=== PATIENT | male | born 1945 | race Caucasian/White ===

== ENCOUNTER 2019-08-20 09:39 | Outpatient (CLI) | payer MEDICARE, BC ==
--- NOTE | 2019-08-20 10:32 | RAD ---
FRONTAL CHEST ONE VIEW FOR MRI SAFETY: 08/20/2019 PROVIDED CLINICAL HISTORY: History of unknown chest surgery. FINDINGS: Median sternotomy changes are seen. There is no evidence of a radiographically apparent cardiac valve . Heart and mediastinal contents appear normal. No focal consolidation, pleural fluid or pneumothorax apparent. IMPRESSION: No contraindication to MRI is radiographically apparent. POS: OFF
--- NOTE | 2019-08-20 11:15 | MRI ---
MRI LUMBAR SPINE NONCONTRAST:. HISTORY: Intervertebral lumbar disc disorder. Low back pain with radiation to the left hip, down to left foot. Associated muscle spasm. COMPARISON: None FINDINGS: Appropriate T1 marrow signal intensity of the lumbar vertebra. Lumbar spine vertebral body height is maintained. No fracture. No significant STIR hyperintensity to suggest vertebral body edema or ligamentous injury. Straightening of normal lumbar lordosis may be positional. Appropriate signal intensity visualized paraspinal muscles 0.8 cm left renal cyst. Conus medullaris terminates at the mid T12 level. T12-L1:Desiccation with mild loss of disc space height. No significant central canal stenosis or sign ificant neural foraminal narrowing. L1-L2:Desiccation without significant loss of disc space height. Minimal right paracentral disc bulge . No significant central canal stenosis or significant neural foraminal narrowing. L2-L3:Desiccation with mild loss of disc space height. Broad-based disc bulge with a small midline an nular fissure. No significant central canal stenosis. Neural foramina are patent. L3-L4:Desiccation without significant loss of disc space height. No significant central canal stenosi s or significant neural foraminal narrowing. L4-L5:Desiccation without significant loss of disc space height. Broad-based disc bulge, ligament fla vum thickening and facet hypertrophy result in moderate central canal stenosis. Moderate bilateral neural foraminal narrowing. L5-S1:Desiccation without significant loss of disc space height. There is no significant posterior di sc abnormality. Narrowing of the thecal sac due to epidural lipomatosis. There is fluid in the right facet joint. Left facet joint is unremarkable. Bilateral facet hypertrophy. There is moderate t o severe right and left neural foraminal narrowing. IMPRESSION: Degenerative changes of lumbar spine as above. Transcribed Date/Time: 08/20/2019 11:20 AM
== END 2019-08-20 09:40 | disposition home or self-care (01) ==
LOC: BICMRI 09:39
PROVIDERS: ATTEND Physician Assistant
DX: M51.06 Intervertebral disc disorders with myelopathy, lumbar region (principal); M47.16 Other spondylosis with myelopathy, lumbar region
CPT/HCPCS: 71045; 72148

== ENCOUNTER 2020-01-06 12:02 | Inpatient (IN) | payer MEDICARE, BC ==
[2020-01-06 15:21] VITALS: BMI 36.3
[2020-01-06] MEDS ORDERED: Dextrose 5% in Water 1,000 ML IV PRN (15:41)
[2020-01-06] MEDS ORDERED: Dextrose 50% Abboject 50 ML SYRINGE SLOW IVP PRN (15:41)
--- NOTE | 2020-01-06 15:54 | HP ---
CHIEF COMPLAINT: Lower extremity weakness. HISTORY OF PRESENT ILLNESS: The patient is a 74-year-old male with past medical history of coronary artery disease, status post CABG, hypertension, and diabetes mellitus, who was in his usual state of health until 3 weeks ago when he had an episode of diarrhea that lasted about a week. The episode subsided spontaneously. On the following week, the patient has been experiencing progressive weakness in his lower extremities that caused him to fall multiple times. His weakness was getting worse, which prompted him to go to the emergency department in [facility]. The patient mentioned that he received an x-ray to his thoracic spine and was sent to the rehab when the results were normal. In the rehab, the patient's weakness worsened to the extent that he was not able to move his lower extremities anymore and the weakness progressed to his upper extremities, which he is able to move now but much weaker than his usual self. The patient also endorsed feeling differently, but he denied tingling or numbness. An MRI of his cervical spine and lumbar spine were performed and the results did not show any spinal cord abnormalities, but did show degenerative spine changes. The patient was given a trial of corticosteroids without significant improvement in his symptoms and was subsequently sent to our hospital for further evaluation. The patient at this time is able to lift his both upper extremities above his head with difficulty and he is able to speak and move his eyes without abnormalities. He reports some weakness in his neck muscles and is unable to move his lower extremities at all. He denies any urinary or fecal incontinence. REVIEW OF SYSTEMS: Negative except as noted in HPI. PAST MEDICAL HISTORY: Hypertension, diabetes mellitus, coronary artery disease. PAST SURGICAL HISTORY: Left knee replacement and CABG. PHYSICAL EXAMINATION: GENERAL: The patient is alert and oriented. HEENT: Head is normocephalic and atraumatic. Extraocular muscles are intact. NECK: Supple. CHEST: Auscultation is clear bilaterally. CARDIAC: Revealed normal S1 and S2. No murmurs, rubs, or gallops. ABDOMEN: Soft, nontender, nondistended. Bowel sounds are audible. NEUROLOGIC: Revealed 1/5 weakness in his lower extremities bilaterally and 3/5 weakness in his upper extremities bilaterally. His sensation appears to be present, but altered. ASSESSMENT AND PLAN: 1. Progressive ascending weakness with negative MRI of the cervical and lumbar spine for spinal cord abnormalities. 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 We will admit the patient to the telemetry unit and obtain a lumbar puncture to look at the proteins and the cells. We will check vital capacity every 6 hours and transfer the patient to the intensive care unit if the numbers deteriorate. The patient might require IVIG if the diagnosis is confirmed. 2. Hypertension. 3. Coronary artery disease. 4. Diabetes mellitus. Job ID: [id number]
--- NOTE | 2020-01-06 17:01 | CON ---
DATE OF CONSULTATION: 01/06/2020 CONSULTING PHYSICIAN: Hospitalist Service. 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 PLAN: 1. Start IVIG 1 g/kg daily for 2 days. 2. Monitor negative inspiratory flow. 3. DVT prophylaxis. 4. Lumbar puncture for routine cell count, glucose, protein, and IgG synthesis rate. HISTORY OF PRESENT ILLNESS: Mr. Salazar is a 74-year-old gentleman who reports he had a diarrheal illness about 3 weeks ago. Following this, he started to notice some progressive weakness. He started falling and having more trouble getting up. He noticed that he was losing feeling in his toes. There is no loss of bowel or bladder control. He has not noticed any facial weakness, difficulty swallowing, double vision, headache, dizziness, blurred vision, or cognitive impairment. He had noted some tingling around his face at one point. He had an MRI of the cervical and lumbar spine done, nothing remarkable was found. The patient came in today because he had gotten so weak that he was not able to get around independently. He has been admitted for further treatment. PAST MEDICAL HISTORY: Hypertension, diabetes, coronary artery disease, cardiac valve replacement. ALLERGIES: NONE. SOCIAL HISTORY: No tobacco or illicit drug use. FAMILY HISTORY: Noncontributory. REVIEW OF SYSTEMS: 10-system review of systems is otherwise negative. PHYSICAL EXAMINATION: GENERAL: He is a somewhat overweight elderly man, lying in bed, in no acute distress. VITAL SIGNS: Stable. HEENT: Pupils are equal and reactive. Conjunctivae clear. Oropharynx clear. NECK: Supple. No lymphadenopathy. EXTREMITIES: No cyanosis or edema. NEUROLOGIC: He was alert and cooperative. Speech is fluent and clear. Cranial nerve exam seem to be intact other than some questionable lower facial weakness to maintain air in his mouth. He had a slight bit of neck flexion weakness noted. Motor exam in the extremities was remarkable for at best 3/5 strength both proximally and distally in all 4 extremities. Sensation was diminished to proprioception in the toes, but still intact to touch. Gait was not tested. No abnormal movements were seen. I could not elicit any reflexes. 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 I would go ahead and start treatment immediately. His situation is a bit tenuous. I would monitor his respiratory status closely and consider if it is necessary to move into the ICU if it deteriorates. Job ID: [id number]
[2020-01-06] MEDS: HumaLOG 300 UNITS/3 ML VIAL SC PRN ×2 (17:42→22:40)
[2020-01-06] MEDS: OCTAGAM IVPB SCH (17:46)
[2020-01-06] MEDS: Enoxaparin Sodium 40 MG/0.4 ML SYRINGE SC SCH (20:58)
[2020-01-06] MEDS: Pregabalin 75 MG CAP PO SCH (20:59)
[2020-01-06] MEDS ORDERED: Furosemide 40 MG TAB PO SCH (21:00)
[2020-01-06] MEDS: Rosuvastatin 20 MG TAB PO SCH (21:03)
[2020-01-06] MEDS: Acetaminophen 325 MG TAB PO PRN (22:41)
[2020-01-06] MEDS: Melatonin 3 MG TAB PO PRN (22:41)
[2020-01-07] MEDS: Acetaminophen 325 MG TAB PO PRN ×4 (03:41→23:23)
[2020-01-07 04:28] LABS: INR-International Normal Ratio 1.1; Prothrombin Time 13.9 SEC (12.0-14.7)
[2020-01-07 04:52] LABS: Anion Gap 14 mmol/L (10-20); BUN (Urea Nitrogen) 51 mg/dL (8.4-25.7); Calc. Creatinine Clearance 99 mL/min (70-130); Calcium 8.4 mg/dL (7.8-10.44); Carbon Dioxide 22 mmol/L (23-31); Chloride 96 mmol/L (98-107); Estimated GFR-MDRD 65; Glucose 287 mg/dL (83-110); Potassium 5.5 mmol/L (3.5-5.1); Sodium 126 mmol/L (136-145)
[2020-01-07 05:39] LABS: Hemoglobin 14.6 g/dL (14.0-18.0); Lymphocytes 5 % (21-51); MDiff Complete? YES; Mean Corpuscular HGB CONC 34.1 g/dL (32.0-36.0); Mean Corpuscular Hemoglobin 30.1 pg (27.0-31.0); Mean Corpuscular Volume 88.2 fL (78.0-98.0); Monocytes 16 % (0-10); Neutrophil 79 % (42-75); Platelet Count 143 thou/uL (130-400); Platelet Morphology Comment Appears Adequate; RBC Morphology Normal; Red Blood Cell (RBC) Count 4.87 mill/uL (4.70-6.10)
[2020-01-07] MEDS: HumaLOG 300 UNITS/3 ML VIAL SC PRN ×3 (06:07→21:38)
[2020-01-07] MEDS ORDERED: Enoxaparin Sodium 40 MG/0.4 ML SYRINGE SC SCH (09:00)
[2020-01-07] MEDS ORDERED: Lisinopril 10 MG TAB PO SCH (09:00)
[2020-01-07] MEDS: Aspirin 325 MG TAB PO SCH (09:12)
[2020-01-07] MEDS: Pregabalin 75 MG CAP PO SCH ×2 (09:13→21:36)
--- NOTE | 2020-01-07 09:14 | PDOC.HOSPP ---
- Subjective Encounter Date: 01/07/20 Subjective: The patient stated that he is able to move his arms better today. - Objective Vital Signs & Weight: Vital Signs (12 hours) Temp Pulse Resp BP BP Pulse Ox 01/07/20 07:01 97.6 F 58 L 20 143/84 H 97 01/07/20 03:41 97.5 F L 57 L 17 146/80 H 94 L 01/06/20 23:49 97.9 F 61 18 159/89 H 96 Weight Weight 261 lb I&O: 01/06/20 01/07/20 01/08/20 06:59 06:59 06:59 Intake Total 850 Output Total 2600 Balance -1750 Result Diagrams: 01/07/20 04:13 01/07/20 04:13 Additional Labs: Accuchecks 01/07/20 01/06/20 01/06/20 05:44 19:22 16:58 POC Glucose 275 H 230 H 200 H Hospitalist ROS - Medication Medications: Active Medications Generic Name Dose Route Start Last Admin Trade Name Freq PRN Reason Stop Dose Admin Acetaminophen 650 mg 01/06/20 21:53 01/07/20 03:41 Tylenol PO 650 mg Q4H PRN Administration Headache/Fever/Pain 1-3 Enoxaparin Sodium 40 mg 01/06/20 21:00 01/06/20 20:58 Lovenox SC 40 mg Q12HR WARREN Administration Immune Globulin 90 gm/ Immune 950 mls @ 0 mls/hr 01/06/20 18:00 01/06/20 17: 46 Globulin 5 gm/ Device IVPB 01/07/20 18:01 950 mls Q24HR WARREN Administration As Directed Insulin Human Lispro 0 units 01/06/20 15:41 01/07/20 06:07 Humalog SC 4 unit .MILD SLIDING SCALE PRN Administration Mild Correctional Scale Insulin Human Lispro 0 units 01/06/20 22:05 01/06/20 22:40 Humalog SC 2 unit .BEDTIME SLIDING SC PRN Administration Bedtime Correctional Scale Melatonin 3 mg 01/06/20 21:53 01/06/20 22:41 Melatonin PO 3 mg HS PRN Administration Insomnia Metoprolol Succinate 50 mg 01/06/20 21:00 01/06/20 20:58 Toprol Xl PO 50 mg BID WARREN Administration Pantoprazole Sodium 40 mg 01/07/20 07:00 01/07/20 06:07 Protonix PO 40 mg 0700 WARREN Administration Pregabalin 75 mg 01/06/20 21:00 01/06/20 20:59 Lyrica PO 75 mg BID WARREN Administration Rosuvastatin Calcium 40 mg 01/06/20 21:00 01/06/20 21:03 Crestor PO 40 mg HS WARREN Administration - Exam General Appearance: awake alert ENT: normocephalic atraumatic, no oropharyngeal lesions Neck: supple, no JVD Heart: RRR, no murmur, no gallops, no rubs, normal peripheral pulses Respiratory: CTAB, no wheezes, no rales, no ronchi, normal chest expansion Gastrointestinal: soft, non-tender, non-distended, normal bowel sounds, no palpable masses Neurological: cranial nerve grossly intact Neurological - other findings: LE 1/5 weakness and sensory deficit Hosp A/P (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 LP today. IVIG per neurology. Outpatient steriods DCed. FVC and MIP q6h. Move to CCU if FVC<20 or MIP<30. Hyponatremia liley due to volume depletion. Hold lasix. NS at 50 ml/hr. DC Lisinopril due to hyperkalemia. Start Imdur and Hydralazine for HTN. Lantus 10 u q am for uncontrolled DM. Lovenox for DVT ppx.
[2020-01-07] MEDS: Sodium Chloride 0.9% 1,000 ML IV SCH (09:15)
[2020-01-07] MEDS: Enoxaparin Sodium 40 MG/0.4 ML SYRINGE SC SCH ×2 (09:15→21:35)
--- NOTE | 2020-01-07 11:16 | RAD ---
Fluoroscopic guided lumbar puncture HISTORY: Leg weakness. Guillain-[place] syndrome. FINDINGS: After explaining the procedure and answering all questions, the lower back was prepped and draped in usual sterile fashion. Sterile technique, buffered local anesthesia, fluoroscopic guidance, and a posterior L2-3 approach were used to carefully advance a 20-gauge spinal needle into the thecal sac. A total volume of 8 cc clear CSF was collected in 4 sterile tubes and sent to pathology for evaluatio n. Needle was removed. Patient tolerated the procedure well and was returned in unchanged condition. Fluoroscopy time 0.2 minutes. IMPRESSION : Technically successful lumbar puncture. Pathology is pending.
[2020-01-07 12:21] LABS: CSF, Glucose 163 mg/dl (40-70); CSF, Protein 123 mg/dL (15-40)
[2020-01-07 12:31] LABS: Color Of CSF Supernatant COLORLESS (Colorless); Tube # 1; Unspun CSF Color COLORLESS (Colorless)
[2020-01-07 13:37] LABS: CSF Source CSF; Clarity Clear (Clear); RBC Count - Manual 1 /cumm (None Seen); Tube # 4
[2020-01-07 13:44] LABS: WBC/NonHematics Count - Manual 7 /cumm (0-5)
[2020-01-07] MEDS: hydrALAZINE 25 MG TAB PO SCH ×2 (14:06→21:35)
[2020-01-07] MEDS: Insulin Glargine 10 UNITS in Pre-Filled Syringe 1 EACH SC SCH (14:12)
[2020-01-07 14:56] LABS: Ref Lab Test Ordered IGG SYNTHESIS CSF; Reference Lab Name LABCORP
[2020-01-07] MEDS: OCTAGAM IVPB SCH (17:46)
[2020-01-07] MEDS: Rosuvastatin 20 MG TAB PO SCH (21:38)
[2020-01-07] MEDS: Melatonin 3 MG TAB PO PRN (23:23)
[2020-01-08 04:59] LABS: #Basophils 0.2 thou/uL (0.0-0.2); #Lymphocytes 1.2 thou/uL (1.20-3.40); #Monocytes 0.8 thou/uL (0.11-0.59); #Neutrophils 4.5 thou/uL (1.40-6.50); %Basophils 2.3 % (0.0-1.0); %Eosinophils 0.7 % (0.0-10.0); %Lymphocytes 17.6 % (21.0-51.0); %Monocytes 12.1 % (0.0-10.0); %Neutrophils 67.3 % (42.0-75.0); Hemoglobin 15.5 g/dL (14.0-18.0); Mean Corpuscular HGB CONC 34.8 g/dL (32.0-36.0); Mean Corpuscular Hemoglobin 30.7 pg (27.0-31.0); Mean Corpuscular Volume 88.3 fL (78.0-98.0); Mean Platelet Volume 7.1 fL (7.4-10.4); Platelet Count 133 thou/uL (130-400); Red Blood Cell (RBC) Count 5.04 mill/uL (4.70-6.10); White Blood Cell (WBC) Count 6.7 thou/uL (4.8-10.8)
[2020-01-08] MEDS ORDERED: Ondansetron PF 4 MG/2 ML Vial SLOW IVP PRN (05:17)
[2020-01-08 05:21] LABS: Anion Gap 11 mmol/L (10-20); BUN (Urea Nitrogen) 33 mg/dL (8.4-25.7); Calc. Creatinine Clearance 132 mL/min (70-130); Calcium 8.6 mg/dL (7.8-10.44); Carbon Dioxide 22 mmol/L (23-31); Chloride 99 mmol/L (98-107); Estimated GFR-MDRD Greater than 90; Glucose 178 mg/dL (83-110); Potassium 4.7 mmol/L (3.5-5.1); Sodium 127 mmol/L (136-145)
[2020-01-08] MEDS: HumaLOG 300 UNITS/3 ML VIAL SC PRN ×2 (06:13→12:10)
[2020-01-08] MEDS: Acetaminophen 325 MG TAB PO PRN ×2 (06:14→12:04)
[2020-01-08] MEDS ORDERED: Isosorbide Mononitrate (ER) 30 MG TAB PO SCH (09:00)
[2020-01-08] MEDS: Sodium Chloride 0.9% 1,000 ML IV SCH (09:23)
[2020-01-08] MEDS: hydrALAZINE 25 MG TAB PO SCH (09:25)
[2020-01-08] MEDS: Insulin Glargine 10 UNITS in Pre-Filled Syringe 1 EACH SC SCH (09:25)
[2020-01-08] MEDS: Aspirin 325 MG TAB PO SCH (09:25)
[2020-01-08] MEDS: Enoxaparin Sodium 40 MG/0.4 ML SYRINGE SC SCH (09:25)
[2020-01-08] MEDS: Pregabalin 75 MG CAP PO SCH (09:26)
--- NOTE | 2020-01-08 11:57 | PRG ---
DATE OF SERVICE: 01/08/2020 Mr. Salazar has been stable since overnight, he has not run any fever. He is complaining of some pain in his tailbone from sitting so much. He has completed his IVIG therapy. His spinal fluid was consistent with a cellular high-protein pattern of Guillain-[place] syndrome. His negative inspiratory flows have remained normal at 60. He was found to be diabetic. He is now undergoing treatment for this. He has been assessed by physical therapy. He is receiving DVT prophylaxis. We will screen him for rehab and see about a transfer at their discretion. Job ID: [id number]
[2020-01-08 12:11] VITALS: BP 108/64; TEMP 98
--- NOTE | 2020-01-09 06:01 | DIS ---
DATE OF ADMISSION: 01/06/2020 DATE OF DISCHARGE: 01/08/2020 DISCHARGE DIAGNOSES: 1. Guillain-[place] syndrome. 2. Hypertension. 3. Coronary artery disease. 4. Diabetes. DISCHARGE MEDICATIONS: 1. Aspirin 325 mg orally daily. 2. Metoprolol succinate 50 mg orally twice daily. 3. Omeprazole 20 mg orally daily. 4. Pregabalin 75 mg orally daily. 5. Rosuvastatin 40 mg orally daily. 6. Furosemide 40 mg orally twice daily. 7. Lisinopril 10 mg orally daily. 8. Claritin 10 mg orally daily. 9. Metformin 2 tablets of 500 mg twice daily. 10. Potassium chloride 20 mEq orally daily. 11. Avoid corticosteroids. HISTORY OF PRESENT ILLNESS AND HOSPITAL COURSE: The patient is a 74-year-old male with past medical history of hypertension, diabetes mellitus and coronary artery disease, who was transferred to our hospital from rehab facility due to ascending type of paralysis. His presentation was also associated with some sensory deficits. MRI of his cervical and lumbar spine obtained prior to admission, did not show any spinal cord abnormalities, but did show some degenerative changes of the spine. Guillain-Ward was suspected based on his presentation, especially his weakness was preceded by one week of diarrhea. Neurology was consulted and the patient was started on IVIG. Lumbar puncture was done, which showed normal cells and increased protein level typical for Guillain-Ward syndrome. The patient received two full days of IVIG and completed his treatment per Neurology. He was monitored for deterioration of his respiratory status, which did not happen and his maximum inspiratory pressure remained within normal limits. The patient's recovery will take several weeks. He is cleared to go to the rehab from Neurology standpoint. Job ID: [id number]
== END 2020-01-08 14:33 | DRG 94 ==
LOC: SURG A 13:28 → OBSVTOIN 13:28 → 2SE 16:41
PROVIDERS: ADMIT Internal Medicine; ATTEND Internal Medicine
PROC: 009U3ZX Drainage of Spinal Canal, Percutaneous Approach, Diagnostic (ICD-10-PCS; principal; 2020-01-07)
PROC: B01BZZZ Fluoroscopy of Spinal Cord (ICD-10-PCS; 2020-01-07)
DX: G61.0 Guillain-Barre syndrome (principal); G82.50 Quadriplegia, unspecified; E87.1 Hypo-osmolality and hyponatremia; I10 Essential (primary) hypertension; E11.9 Type 2 diabetes mellitus without complications; I25.10 Atherosclerotic heart disease of native coronary artery without angina pectoris; Z96.652 Presence of left artificial knee joint; E86.9 Volume depletion, unspecified; E87.5 Hyperkalemia; Z95.1 Presence of aortocoronary bypass graft
CPT/HCPCS: 36415; 36416; 62270; 80048; 82945; 84157; 85025; 85610; 89051; 94150; J1568; J1650; J1815; J2405

== ENCOUNTER 2020-01-18 21:07 | Observation (INO) | payer MEDICARE, BC ==
[2020-01-18 21:46] LABS: #Eosinphils 0.1 thou/uL (0.0-0.7); #Lymphocytes 1.4 thou/uL (1.20-3.40); #Monocytes 0.5 thou/uL (0.11-0.59); #Neutrophils 8.5 thou/uL (1.40-6.50); %Basophils 0.3 % (0.0-1.0); %Eosinophils 1.3 % (0.0-10.0); %Monocytes 4.8 % (0.0-10.0); %Neutrophils 80.7 % (42.0-75.0); Hemoglobin 14.6 g/dL (14.0-18.0); Mean Corpuscular HGB CONC 35.1 g/dL (32.0-36.0); Mean Corpuscular Hemoglobin 30.9 pg (27.0-31.0); Mean Corpuscular Volume 88.3 fL (78.0-98.0); Mean Platelet Volume 7.2 fL (7.4-10.4); Platelet Count 192 thou/uL (130-400); RBC Distribution Width 12.5 % (11.5-14.5); Red Blood Cell (RBC) Count 4.71 mill/uL (4.70-6.10); White Blood Cell (WBC) Count 10.6 thou/uL (4.8-10.8)
[2020-01-18 22:06] LABS: ALT (SGPT) 42 U/L (8-55); AST (SGOT) 28 U/L (5-34); Albumin 3.4 g/dL (3.4-4.8); Alkaline Phosphatase 92 U/L (40-110); Anion Gap 17 mmol/L (10-20); BUN (Urea Nitrogen) 18 mg/dL (8.4-25.7); Bilirubin, Total 1.2 mg/dL (0.2-1.2); Calc. Creatinine Clearance 0 mL/min (70-130); Calcium 9.3 mg/dL (7.8-10.44); Carbon Dioxide 19 mmol/L (23-31); Chloride 98 mmol/L (98-107); Estimated GFR-MDRD Greater than 90; Globulin 4.1 g/dL (2.4-3.5); Glucose 113 mg/dL (83-110); Potassium 4.5 mmol/L (3.5-5.1); Protein, Total 7.5 g/dL (5.8-8.1); Sodium 129 mmol/L (136-145)
--- NOTE | 2020-01-18 22:37 | RAD ---
CHEST ONE VIEW: History: Chest pain Comparison: 08-20-19 FINDINGS: Lungs are clear. No pneumothorax or effusion. Cardiac silhouette and mediastinal contours are within normal limits. No acute osseous abnormality. IMPRESSION: No acute intrathoracic abnormality. POS: HOME
[2020-01-19] MEDS ORDERED: Nitroglycerin 0.4 MG TAB (25 Tab Bottle) PO PRN (00:51)
[2020-01-19] MEDS ORDERED: Sodium Chloride 0.9% 1,000 ML IV SCH (01:00)
[2020-01-19] MEDS ORDERED: Dextrose 50% Abboject 50 ML SYRINGE SLOW IVP PRN (01:01)
[2020-01-19] MEDS ORDERED: Dextrose 5% in Water 1,000 ML IV PRN (01:01)
[2020-01-19] MEDS ORDERED: HumaLOG 300 UNITS/3 ML VIAL SC PRN ×2 (01:01)
[2020-01-19] MEDS ORDERED: Calcium Carbonate 500 MG ChewTAB PO PRN (01:04)
[2020-01-19] MEDS ORDERED: Acetaminophen 325 MG TAB PO PRN (01:04)
--- NOTE | 2020-01-19 01:20 | PDOC.HHP ---
Hospitalist HPI - History of Present Illness Chest Pain History of Present Illness: PCP: DARREN Peters The patient is a 74/M with PMH significant for HTN, HLD, DMII, CABG x 4 (1999) and GERD that present for above complaint. The patient was recently discharged from this hospital to rehab s/p Guillian [place] syndrome. Patient reports developing sudden onset of right chest wall pain while watching television, radiating to left chest wall, describes at intermittent stabbing, 7/10 at onset , exacerbated and relieved by nothing. Denies any heart palpitations, sob, wheezing, nausea, vomiting or light headedness. The patient reports "I've been belching quit alot", denies pyrosis or recent EGD/AVI procedure. Denies any calf pain, lower extemity swelling or SOB. The patient was given SL nitro x 3 without relief of symptoms and EMS was called. EMS gave the patient ASA 324mg and brought patient to ER. ED Course: T 98.4F, BP 114/67, HR 68, RR 17, Sp02 96% RA EKG SA, 67 bpm, no ST elevations Trop negative BNP 18.3 Na 129, was 126 on 01/07/2020 K 4.5 BUN 18 Creatinine 0.79 GFR 90 WBC 10.6 Hgb 14.6 Hct 41.6 Platelets 192 Allergies: NKDA Home medications: Aspirin 325mg po daily Metoprolol Succinate 50mg po BID Omeprazole 20mg po daily Pregabalin 75mg po daily Rosuvastatin 40mg po daily Furosemide 40mg po daily, (reports reduced dose since discharge from hospital) Lisinopril 10mg po daily claritin 10mg po daily metformin 500mg, take 2 tablets po BID Potassium 40mEQ po daily Avoid steroids. Hospitalist ROS - Review of Systems Constitutional: denies: fever, chills, sweats, weakness, malaise, other Eyes: denies: pain, vision change, conjunctivae inflammation, eyelid inflammation, redness, other ENT: denies: ear pain, ear discharge, nose pain, nose discharge, nose congestion , mouth pain, mouth swelling, throat pain, throat swelling, other Respiratory: denies: cough, dry, shortness of breath, hemoptysis, SOB with excertion, pleuritic pain, sputum, wheezing, other Cardiovascular: reports: chest pain. denies: palpitations, orthopnea, paroxysmal noc. dyspnea, edema, light headedness Gastrointestinal: denies: nausea, vomiting, abdominal pain, diarrhea, constipation, melena, hematochezia, other Genitourinary: denies: dysuria, frequency, incontinence, hematuria, retention, other Musculoskeletal: denies: neck pain, shoulder pain, arm pain, back pain, hand pain, leg pain, foot pain, other Skin: denies: rash, lesions, colton, bruising, other Neurological: reports: weakness (baseline, Generalized from recent GB diagnosis) . 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: reports: Other (Recent GB diagnosis) Gastrointestinal: reports: GERD Endocrine: reports: Diabetes (Type II) - Past Surgical History Past Surgical History: reports: CABG (x4 (2000)), Other Other Surgical History: Left Knee surgery - Family History Family History: reports: cardiac disorder - Social History Smoking Status: Never smoker Alcohol: reports: Rare Drugs: reports: none Living Situation: With Family Occupation: Lives with spouse in [facility], retired utilities worker, 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 Activity level: bed bound (Complete assist at this time attending rehab s/p GB) - Exam General Appearance: NAD, awake alert Eye: PERRL, anicteric sclera ENT: normocephalic atraumatic Neck: supple, no JVD Heart: RRR, no murmur, no gallops, no rubs, normal peripheral pulses Respiratory: CTAB, no wheezes, no rales, no ronchi, normal chest expansion, no tachypnea Gastrointestinal: soft, non-tender, non-distended, normal bowel sounds, no guarding, no rigidity Extremities: no cyanosis, no edema Skin: no rashes Neurological: no focal deficits Musculoskeletal: generalized weakness Psychiatric: normal affect, A&O x 3 Hospitalist Results - Labs Result Diagrams: 01/19/20 01:20 01/18/20 21:36 Lab results: WBC 10.6 thou/uL (4.8-10.8) 01/18/20 21:36 Hgb 14.6 g/dL (14.0-18.0) 01/18/20 21:36 Hct 41.6 % (42.0-52.0) L 01/18/20 21:36 MCV 88.3 fL (78.0-98.0) 01/18/20 21:36 Plt Count 192 thou/uL (130-400) 01/18/20 21:36 Neutrophils % 80.7 % (42.0-75.0) H 01/18/20 21:36 Sodium 129 mmol/L (136-145) L 01/18/20 21:36 Potassium 4.5 mmol/L (3.5-5.1) 01/18/20 21:36 Chloride 98 mmol/L (98-107) 01/18/20 21:36 Carbon Dioxide 19 mmol/L (23-31) L 01/18/20 21:36 BUN 18 mg/dL (8.4-25.7) 01/18/20 21:36 Creatinine 0.79 mg/dL (0.7-1.3) 01/18/20 21:36 Glucose 113 mg/dL (83-110) H 01/18/20 21:36 Calcium 9.3 mg/dL (7.8-10.44) 01/18/20 21:36 Total Bilirubin 1.2 mg/dL (0.2-1.2) 01/18/20 21:36 AST 28 U/L (5-34) 01/18/20 21:36 ALT 42 U/L (8-55) 01/18/20 21:36 Alkaline Phosphatase 92 U/L (40-110) 01/18/20 21:36 Troponin I Less than 0.010 ng/mL (< 0.028) 01/18/20 21:36 B-Natriuretic Peptide 18.3 pg/mL (0-100) 01/18/20 21:36 Serum Total Protein 7.5 g/dL (5.8-8.1) 01/18/20 21:36 Albumin 3.4 g/dL (3.4-4.8) 01/18/20 21:36 - EKG Interpretation EKG: Sinus arrhythmia - Radiology Interpretation Chest x-ray Status: report reviewed by ks Hospitalist H&P A/P - Problem (1) Chest pain Code(s): R07.9 - CHEST PAIN, UNSPECIFIED Status: Acute Assessment and Plan: Admit to telemetry floor, observation status Expected length of stay less than 2 midnights Currently chest pain resolved EKG no ST elevations, troponin negative, BNP 18.30 HEART SCORE 6 Trend troponins Echocardiogram Continue ASA Check TSH, FLP and Mag level Further testing pending results of troponins and echocardiogram (2) HTN (hypertension) Code(s): I10 - ESSENTIAL (PRIMARY) HYPERTENSION Status: Chronic Assessment and Plan: Blood pressure stable Will restart home blood pressure medications when reconciled by nursing (3) DM2 (diabetes mellitus, type 2) Status: Chronic Assessment and Plan: Will hold metformin for now Start mild sliding scale AC/HS accuchecks npo diet (4) HLD (hyperlipidemia) Code(s): E78.5 - HYPERLIPIDEMIA, UNSPECIFIED Status: Chronic Assessment and Plan: Will restart patient home medications Rosuvastatin 40mg q hs get FLP (5) GERD (gastroesophageal reflux disease) Code(s): K21.9 - GASTRO-ESOPHAGEAL REFLUX DISEASE WITHOUT ESOPHAGITIS Status: Chronic Assessment and Plan: Will start protonix 40mg q day (6) 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 Rickie Ying
[2020-01-19 01:37] LABS: #Basophils 0.1 thou/uL (0.0-0.2); #Eosinphils 0.1 thou/uL (0.0-0.7); #Lymphocytes 1.6 thou/uL (1.20-3.40); #Monocytes 0.6 thou/uL (0.11-0.59); #Neutrophils 8.3 thou/uL (1.40-6.50); %Basophils 0.5 % (0.0-1.0); %Eosinophils 1.2 % (0.0-10.0); %Monocytes 5.6 % (0.0-10.0); %Neutrophils 77.6 % (42.0-75.0); Hemoglobin 14.3 g/dL (14.0-18.0); Mean Corpuscular HGB CONC 35.1 g/dL (32.0-36.0); Mean Corpuscular Volume 88.1 fL (78.0-98.0); Mean Platelet Volume 7.3 fL (7.4-10.4); Platelet Count 155 thou/uL (130-400); RBC Distribution Width 12.5 % (11.5-14.5); Red Blood Cell (RBC) Count 4.61 mill/uL (4.70-6.10); White Blood Cell (WBC) Count 10.7 thou/uL (4.8-10.8)
[2020-01-19 02:08] LABS: Troponin I Less than 0.010 ng/mL (< 0.028)
[2020-01-19] MEDS ORDERED: Magnesium 2 GM/50 ML 2 GM in Premix Bag 1 BAG IVPB SCH (02:15)
[2020-01-19 04:25] VITALS: BMI 34.6
[2020-01-19 06:54] LABS: Anion Gap 14 mmol/L (10-20); BUN (Urea Nitrogen) 17 mg/dL (8.4-25.7); Calc. Creatinine Clearance 144 mL/min (70-130); Carbon Dioxide 20 mmol/L (23-31); Cardiac Risk 3.4 (Less than 4.5); Cholesterol 92 mg/dl (< 200 Desired); Estimated GFR-MDRD Greater than 90; Glucose 107 mg/dL (83-110); HDL Cholesterol 27 mg/dL (>60 Neg Risk); LDL Cholesterol, Calculated 51 mg/dL
[2020-01-19 06:57] LABS: Troponin I Less than 0.010 ng/mL (< 0.028)
[2020-01-19 08:13] VITALS: TEMP 97.8
[2020-01-19 08:15] LABS: Chloride 100 mmol/L (98-107); Potassium 4.1 mmol/L (3.5-5.1); Sodium 131 mmol/L (136-145)
[2020-01-19 08:16] LABS: Calcium 9.2 mg/dL (7.8-10.44)
[2020-01-19 08:17] LABS: Triglycerides 71 mg/dL (Less than 150)
[2020-01-19] MEDS ORDERED: Potassium Chloride 20 MEQ TAB PO SCH (09:00)
[2020-01-19] MEDS ORDERED: Tamsulosin HCl 0.4 MG CAP PO SCH (09:00)
[2020-01-19] MEDS ORDERED: Aspirin 325 mg Enteric Coated Tablet PO SCH (09:00)
[2020-01-19] MEDS ORDERED: Lisinopril 10 MG TAB PO SCH (09:00)
[2020-01-19] MEDS ORDERED: Enoxaparin Sodium 40 MG/0.4 ML SYRINGE SC SCH (09:00)
[2020-01-19] MEDS ORDERED: Rosuvastatin 20 MG TAB PO SCH (09:00)
[2020-01-19] MEDS ORDERED: Pregabalin 75 MG CAP PO SCH ×2 (09:00)
[2020-01-19] MEDS ORDERED: Loratadine 10 MG TAB PO SCH (09:00)
[2020-01-19] MEDS ORDERED: Aspirin 81 mg Enteric Coated Tablet PO SCH (09:00)
--- NOTE | 2020-01-19 14:53 | NM ---
Radionucleotide stress and rest myocardial perfusion scan with CT attenuation correction and SPECT im aging Left ventricular wall motion evaluation and ejection fraction HISTORY: Chest pain. FINDINGS: Adenosine protocol. There is very heterogeneous uptake of radiotracer throughout the left v entricular myocardium on the stress and rest images. On the non-attenuation correction stress images, diminished uptake is apparent throughout the inferior aspect of the heart base. Attenuation c orrection images/stress shows more normal uptake. No reversibility is reliably demonstrated. Is favored to be diaphragmatic attenuation. QGS analysis of gated SPECT images shows diminished motion of the septum consistent with prior CABG.. Ejection fraction calculated at 60%. IMPRESSION : Probably normal myocardial perfusion scan. No ischemia reliably demonstrated. Normal LVEF.
[2020-01-19 16:00] VITALS: BP 137/67
--- NOTE | 2020-01-19 17:45 | DIS ---
DATE OF ADMISSION: 01/19/2020 DATE OF DISCHARGE: 01/19/2020 DISCHARGE DISPOSITION: Inpatient rehabilitation. INPATIENT CIRCULATION TENDER: Cardiology, Dr. Hull. DISCHARGE CONDITION: The patient was seen and examined on the day of discharge. Denies any new complaints. No chest pain, shortness of breath, or palpitations reported. BRIEF HOSPITAL COURSE: The patient is a 74-year-old male with recent hospitalization for Guillain-Rayland syndrome, presented to the emergency room with chest discomfort. Please refer to the history and physical for further details. The patient was admitted to the hospital with a diagnosis of chest discomfort, rule out acute coronary syndrome. His serial troponins remained negative. He was evaluated by Cardiology, Dr. Hull. An echocardiogram was obtained that showed ejection fraction 50% to 55% with mild tricuspid regurgitation, trace mitral regurgitation. He underwent a Cardiolite stress test that was negative for reversible ischemia. He has been cleared by Cardiology for discharge. Omeprazole was changed to Protonix. All other home medications were left unchanged. FINAL DIAGNOSES: 1. Chest discomfort, acute coronary syndrome ruled out. 2. Negative Cardiolite stress test. 3. Recent Guillain-Rayland syndrome. 4. Hypertension. 5. Diabetes mellitus type 2. 6. Hyperlipidemia. 7. Gastroesophageal reflux disease. 8. Obesity with a BMI of 34.7. 9. Coronary artery disease, status post coronary artery bypass grafting. 10. Mild tricuspid regurgitation, trace mitral regurgitation. 11. Urinary retention - dumont placed this admission. May dc in 1-2 days. May benefit from outpt Urology evaluation. SIGNIFICANT LABORATORY DATA: Sodium on admission 129, at discharge is 131. TSH was 2.39. Lipid profile showed triglycerides 71, cholesterol 92, LDL 51, HDL 27. Job ID: [id number] [facility]
--- NOTE | 2020-01-20 07:09 | CON ---
DATE OF CONSULTATION: PRIMARY CARE PHYSICIAN: Dr. Andrade. PRIMARY BRAND MARKETING MANAGER: Dr. Bach. The patient's primary breaster here at [place] is going to be Dr. Miriam Hull. REASON FOR CARDIOLOGY CONSULT: Chest pain and history of CABG in 1999. HISTORY OF PRESENT ILLNESS: Mr. Salazar is a very pleasant 74-year-old male with a significant history of coronary artery disease with CABG x4 in 1999, hypertension, hyperlipidemia, type 2 diabetes, GERD, and new finding of Guillain-Broaddus syndrome. The patient has been in rehab since the patient was discharged from hospital on January 08, 2020, due to Guillain-Broaddus syndrome. He was doing well until last night. Around 8:00 last night, he started having pressure around the midsternal area, which started to radiate to the left side and the patient's symptoms getting worse. Due to those symptoms, the patient presented to the emergency department for further evaluation and treatment. The patient received 3 nitroglycerin, which did not help. The patient denies any other symptoms such as shortness of breath, dizziness, lightheadedness, or numbness in the left arm. The patient has followup with Dr. Bach at [place], [place]. The patient had a stress test 2 years ago which was normal according to the patient. The patient had another stress test today which is showing probably normal with no reversible ischemia, and the patient's echocardiogram was reviewed today with EF of 50% to 55%, mildly dilated left atrium, mitral valve regurgitation, and mild tricuspid regurgitation. At this moment, the patient denies any chest pain, heaviness, tightness, dizziness, lightheadedness, or any other cardiac complaints; however, the patient has severe pain to the left hip which he had for 3 weeks when he fell to that side. MEDICAL HISTORY: 1. Coronary artery disease, status post CABG x4 in 1999. 2. Hypertension. 3. Hyperlipidemia. 4. Diabetes. 5. Guillain-Broaddus syndrome. SURGICAL HISTORY: Again, CABG x4 in 1999, left knee surgery in 2014, tonsillectomy, cataract, status post colonoscopy 6-7 months ago due to polyp check. FAMILY HISTORY: The patient's mother due to cardiac-related disease; however, the patient cannot recall the specific name. The patient's father due to the complication of congestive heart failure. SOCIAL HISTORY: He is . He has 2 children who are alive and well. The patient denied tobacco abuse. He drinks 3 beers every Sunday and while he is playing bowling. He denied illicit drug abuse. He has been active at the [employer]. Three weeks prior he was found to have Guillain-Broaddus syndrome. He drinks 2 cups of coffee a day. He used to drink Dr. Pepper 2 or 3 cans a day; however, he stopped a couple of weeks ago. REVIEW OF SYSTEMS: 12-point review of systems negative unless otherwise mentioned in the HPI. The patient has numbness and no strength to bilateral upper and lower extremities due to Guillain-Broaddus syndrome. Otherwise, the patient denies any other complaints. The patient denied hematuria or . PHYSICAL EXAMINATION: VITAL SIGNS: Blood pressure 119/68, temperature 97.8, pulse is 70, respiratory rate 18, O2 saturation 97% on room air. GENERAL: The patient is alert and oriented x4, not in acute distress. HEAD: Normocephalic, atraumatic. EYES: Extraocular muscle movement intact. ENT AND MOUTH: Oral and nasal mucosa moist without lesion. NECK: Supple. Normal range of motion. No JVD. No bruits or thrill noted at the carotid area. RESPIRATORY: Clear to auscultate bilaterally but diminished at the bases. No wheezing, rales, or rhonchi noted. CARDIOVASCULAR: Regular rate and rhythm. Normal S1, S2. No S3 or S4. No significant murmur, hives, or thrill noted. 2+ pulses in the bilateral upper and lower extremities. No edema in the lower extremities. ABDOMEN: Soft, nontender. No mass to palpitate. Bowel sounds are present but hypoactive. MUSCULOSKELETAL: The patient able to move extremities, but very weak secondary to new finding of Guillain-Broaddus syndrome. The patient denied any claudication. SKIN: Warm and dry. No lesion, rash, or erythema noted. NEUROLOGIC: The patient is alert and oriented x4, nonfocal. PSYCHIATRIC: The patient's mood is appropriate. LABORATORY DATA: WBC is 10.7, hemoglobin 14.3, hematocrit 40.7, platelets 155. Sodium 131, which was 129 yesterday, potassium 4.1, BUN 17, creatinine 0.72, calcium is 9.2, magnesium 1.7. AST 28, ALT 42, . Total cholesterol 92, triglycerides 71, HDL 27 but LDL is 51. TSH 2.3934. The patient's chest x-ray shows no acute intrathoracic abnormality. The patient's echocardiogram is mentioned above. Stress test results show probably normal. No reversible ischemia and EF 60%. ASSESSMENT AND PLAN: 1. Chest tightness/chest pressure. At this moment, the patient denies any cardiac complaints. The patient's stress test showing probably normal. The patient's troponin has been negative and the patient's vital sign is stable at this moment. I would like to discuss with Dr. Hull, however, the patient most likely to be discharged and follow up with Dr. Bach as an outpatient and possible catheterization if the patient continues having any cardiac-related symptoms. 2. Coronary artery disease with status post coronary artery bypass grafting x4 in 1999. The patient is stable. At this moment, the patient denies any cardiac-related symptoms. The patient has been on metoprolol succinate 50 mg twice a day, aspirin 325 mg once a day, lisinopril 10 mg once a day, atorvastatin 40 mg once a day. 3. Hypertension. The patient's blood pressure is stable at this moment with the current medication. 4. Hyperlipidemia. The patient's LDL is 51 with lovastatin 40 mg once a day. 5. Diabetes type 2, which has been managed by primary care doctor. 6. Obesity. The patient was recommend to start weight management. 7. Guillain-Broaddus syndrome, which is managed by the neurologist. The patient has been rehabbed. Thank you very much for cardiology service to participate in the care of this patient. We will follow along the patient's care team and make further recommendation as appropriate. Job ID: [id number]
--- NOTE | 2020-01-20 07:14 | CON ---
DATE OF CONSULTATION: 01/19/2020 ADDENDUM: Please refer to the notes already dictated by my nurse practitioner, Iona Asher. INDICATION FOR CONSULTATION: A 74-year-old gentleman with a history of chest pain. He recently had been diagnosed with Guillain-Greeley syndrome. He has been in rehab center. He then complained of some what he describes as being sharp stabbing intermittent chest pains. They were not relieved by any particular medications or anything that he was doing. Nitroglycerin also did not relieve his symptoms. He was brought to the emergency room. EKG did not show any acute ST-segment changes. Cardiac enzymes are negative for myocardial infarction. An echocardiogram performed, which showed a normal left ventricular systolic function, ejection fraction 55%. He also underwent stress testing today by nuclear study, which showed no reversible ischemia. His BNP was only 18. At this time, I do not feel his symptoms are cardiac in nature, may be musculoskeletal symptoms or GI and most likely he is stable for discharge back to the [facility] or rehab facility. Please note, I have discussed this patient with my nurse practitioner. I would agree with her assessment and plan. PHYSICAL EXAMINATION: GENERAL: Per my physical examination on this patient, he is an unfortunate elderly gentleman, who essentially has no movement from the lower extremities. VITAL SIGNS: His blood pressure is 137/67, heart rate is 85 and shows a regular rhythm sinus. His respiratory rate is 18. He is afebrile. O2 saturations are 98%. HEENT: Unremarkable. CHEST: Clear to auscultation. CARDIOVASCULAR: Reveals a regular rate and rhythm at this time. Heart sounds are somewhat distant. There were no gross murmurs noted. ABDOMEN: Obese. I cannot palpate any tenderness or masses. EXTREMITIES: Showed no clubbing or cyanosis. His pedal pulses are decreased, but are present and there was no evidence of peripheral vascular disease. He has some significant defects involving the lower extremities. He is unable to move them at all. He can move his upper extremities somewhat. He can turn his head, this has been evaluated by the neurologist and is felt to be due to Guillain-Greeley syndrome. DIAGNOSTIC STUDIES: His EKG shows a sinus rhythm with some nonspecific ST-segment changes originally on admission with some biphasic T-wave or T-wave inversions in V1 and V2, otherwise unremarkable EKG. IMPRESSION AND PLAN: Elderly gentleman with probable noncardiac chest discomfort. He has been followed by Dr. Bach in the past and at this time, I do not see any indication that he has any further progression of coronary artery disease and would suggest that he be referred back to the [facility] facility or rehab facility, so he can continue with his rehab for his lower extremity neurological defects. I would continue his present medications. I have reviewed the medications and would agree with the same medications that he is presently taking. He is to continue with a statin, diuretics, and lisinopril. He is also taking metoprolol and aspirin as well as his other medications for his diabetes, which is metformin. He is also on other medications, which has already been previously outlined. We will be more than happy to continue to follow the patient with you throughout this hospitalization. However, I feel he is most likely stable for discharge back to the rehab facility. In the future, he should continue his followups also with Dr. Bach, who has been his routine supervisor wood room in the past. Job ID: [id number]
--- NOTE | 2020-01-23 14:02 | EKG ---
Test Reason : CHEST PAIN Blood Pressure : / mmHG Vent. Rate : 067 BPM Atrial Rate : 067 BPM P-R Int : 196 ms QRS Dur : 102 ms QT Int : 426 ms P-R-T Axes : 096 010 093 degrees QTc Int : 450 ms Normal sinus rhythm with sinus arrhythmia Abnormal ECG Confirmed by ADALBERTO TAYLOR DO ([id number]), news video editor JAY JACOB ([id number]) on 01/23/2020 2:02:12 PM Referred By: CLAUDIA Confirmed By:ADALBERTO TAYLOR DO
== END 2020-01-19 18:25 ==
LOC: ERS 21:07 → 2NO 01-19 00:02
PROVIDERS: ADMIT Internal Medicine; ATTEND Internal Medicine
DX: R07.89 Other chest pain (principal); G61.0 Guillain-Barre syndrome; I10 Essential (primary) hypertension; E11.9 Type 2 diabetes mellitus without complications; E78.5 Hyperlipidemia, unspecified; I25.10 Atherosclerotic heart disease of native coronary artery without angina pectoris; K21.9 Gastro-esophageal reflux disease without esophagitis; E87.1 Hypo-osmolality and hyponatremia; I08.1 Rheumatic disorders of both mitral and tricuspid valves; R33.9 Retention of urine, unspecified; E66.9 Obesity, unspecified; Z68.34 Body mass index [BMI] 34.0-34.9, adult; Z79.01 Long term (current) use of anticoagulants; Z79.4 Long term (current) use of insulin; Z79.82 Long term (current) use of aspirin; Z79.899 Other long term (current) drug therapy; Z95.1 Presence of aortocoronary bypass graft
CPT/HCPCS: 51702; 71045; 78452; 80048; 80053; 80061; 82962; 83735; 83880; 84443; 84484 ×3; 85025 ×2; 93005; 93017; 93306; 94760 ×2; 96365; 96372; 97110; 97139 ×2; 99285; A9500; G0378 ×2; J1650; J3475; 36415; 36416; J0153

== ENCOUNTER 2020-03-31 11:04 | Day surgery (SDC) | payer MEDICARE, BC ==
[~2020-03-31 11:04] MED LIST: OCTAGAM 10% 80 GM, OCTAGAM 10% 10 GM in Admixture Fee 1 EACH IVPB SCH
== END 2020-03-31 16:06 | disposition home or self-care (01) ==
LOC: ONC/OP 11:04
PROVIDERS: ATTEND Psychiatry & Neurology Neurology
DX: G61.0 Guillain-Barre syndrome (principal)
CPT/HCPCS: 96365; 96366; J1568

== ENCOUNTER 2020-06-20 22:07 | Emergency (ER) | payer MEDICARE, BC ==
--- NOTE | 2020-06-20 23:40 | CON ---
DATE OF CONSULTATION: 06/20/2020 REASON FOR CONSULTATION: Chin catheter problem. CHIEF COMPLAINT: Bladder pain. HISTORY OF PRESENT ILLNESS: A 75-year-old male with urinary retention secondary to BPH and Guillain-Plainville syndrome diagnosed this past summer. He is managed with indwelling catheter changed by home health. They were scheduled to come out tomorrow; however, his catheter stopped draining this evening. His home health nurse came out, removed his catheter and attempted to replace the Chin. However, upon inflating the balloon caused severe trauma and bleeding and so that catheter was removed. He was then sent to the emergency room. In speaking with him here, he tells me that he feels that he needs to urinate and is having bladder pain, but denies abdominal pain, flank pain, nausea, vomiting, fevers and chills. He has been having bleeding from his urethra since the catheter attempt. He denies chest pains, difficulty breathing, headaches. PAST MEDICAL HISTORY: Hypertension, hyperlipidemia, arthritis, diabetes, glaucoma, gout, heart disease, Guillain-Plainville syndrome, BPH. PAST SURGICAL HISTORY: CABG, colonoscopy, left knee, back surgery in December 2019. FAMILY HISTORY: Reviewed, noncontributory. MEDICATIONS: Reviewed, no pertinent urology medications. ALLERGIES: NO KNOWN DRUG ALLERGIES. REVIEW OF SYSTEMS: A 12-point review of systems is negative except as mentioned in my HPI. PHYSICAL EXAMINATION: VITAL SIGNS: Afebrile, vitals stable. No acute distress. HEENT: Head is normocephalic and atraumatic. Extraocular movements intact. Sclerae nonicteric. NECK: Supple. Trachea midline. Unlabored breathing. Symmetric chest expansion. HEART: Regular rate and rhythm. ABDOMEN: Soft, nontender, nondistended. Bladder nonpalpable. No flank tenderness. No suprapubic tenderness. GENITOURINARY: Normal circumcised penis with blood at the meatus. SKIN: Warm and dry. NEUROLOGIC: Alert and oriented x3. PSYCHIATRIC: Normal mood and affect. PROCEDURE: Under sterile conditions, the patient's urethra was filled with lubricating jelly and a 20-Tajik coude catheter was carefully guided through the prostate noting fairly significant prostate obstruction. Upon entering the bladder, clear urine resulted. 10 mL were instilled in the balloon. Given the length of catheter protruding from his penis, he certainly has a very large prostate. The catheter was connected to bag drainage. He tolerated the procedure well with no blood loss. ASSESSMENT AND PLAN: 1. Urinary retention, catheter complication. Chin catheter replaced. 2. He can discharge home per the emergency room provider. 3. He will keep regular follow up with me. Job ID: [id number]
== END 2020-06-21 01:12 | disposition home or self-care (01) ==
LOC: ERS 22:07
DX: N36.8 Other specified disorders of urethra (principal); E11.9 Type 2 diabetes mellitus without complications; I10 Essential (primary) hypertension; E78.5 Hyperlipidemia, unspecified; Z86.79 Personal history of other diseases of the circulatory system; Z79.82 Long term (current) use of aspirin; Z79.899 Other long term (current) drug therapy; Z79.4 Long term (current) use of insulin
CPT/HCPCS: 99283

== ENCOUNTER 2020-07-22 17:10 | Emergency (ER) | payer MEDICARE, BC | END 2020-07-22 18:45 | disposition home or self-care (01) | LOC: ERS 17:10 | DX: B35.6 Tinea cruris (principal); E11.9 Type 2 diabetes mellitus without complications; I10 Essential (primary) hypertension; E78.5 Hyperlipidemia, unspecified; G61.0 Guillain-Barre syndrome; Z79.899 Other long term (current) drug therapy; Z79.82 Long term (current) use of aspirin; Z79.84 Long term (current) use of oral hypoglycemic drugs; Z79.52 Long term (current) use of systemic steroids | CPT/HCPCS: 99283 ==

== ENCOUNTER 2020-09-15 10:13 | Inpatient (IN) | payer MEDICARE, BC ==
[2020-09-15] MEDS ORDERED: Ondansetron ODT 4 MG TAB ONE (10:29)
[2020-09-15 10:57] LABS: Bilirubin Negative (Negative); Blood, Urine Large (Negative); Glucose, Urine (Dipstick) Negative (Negative); Ketone, Urine Negative (Negative); Leukocyte Large (Negative); Nitrite Negative (Negative); Protein, Urine (Dipstick) 30 mg/dL (Neg-Trace); Specific Gravity, Urine 1.025 (1.005-1.030); Urobilinogen 0.2 mg/dL (Less than 2); pH, Urine 7.5 (5.0-9.0)
[2020-09-15 10:58] LABS: Clarity Turbid (Clear)
[2020-09-15 11:00] LABS: #Eosinphils 0.1 thou/uL (0.0-0.7); #Lymphocytes 1.4 thou/uL (1.20-3.40); #Monocytes 0.7 thou/uL (0.11-0.59); #Neutrophils 12.2 thou/uL (1.40-6.50); %Basophils 0.2 % (0.0-1.0); %Eosinophils 0.4 % (0.0-10.0); %Monocytes 4.8 % (0.0-10.0); %Neutrophils 84.7 % (42.0-75.0); Hemoglobin 15.2 g/dL (14.0-18.0); Mean Corpuscular HGB CONC 32.6 g/dL (32.0-36.0); Mean Corpuscular Hemoglobin 31.8 pg (27.0-31.0); Mean Corpuscular Volume 97.8 fL (78.0-98.0); Mean Platelet Volume 5.9 fL (7.4-10.4); Platelet Count 202 thou/uL (130-400); RBC Distribution Width 14.3 % (11.5-14.5); Red Blood Cell (RBC) Count 4.77 mill/uL (4.70-6.10); White Blood Cell (WBC) Count 14.4 thou/uL (4.8-10.8)
[2020-09-15 11:10] LABS: WBC/HPF 21-50 HPF (0-3)
[2020-09-15 11:11] LABS: Bacteria/HPF 4+ HPF (None Seen); Calcium Oxalate Crystals 3+ HPF (None Seen); Squamous Epithelial None Seen HPF (0-3)
[2020-09-15 11:37] LABS: ALT (SGPT) 69 U/L (8-55); AST (SGOT) 46 U/L (5-34); Albumin 3.5 g/dL (3.4-4.8); Alkaline Phosphatase 59 U/L (40-110); Anion Gap 17 mmol/L (10-20); BUN (Urea Nitrogen) 17 mg/dL (8.4-25.7); CK (CPK) 25 U/L (30-200); Calc. Creatinine Clearance 0 mL/min (70-130); Calcium 8.9 mg/dL (7.8-10.44); Carbon Dioxide 21 mmol/L (23-31); Chloride 104 mmol/L (98-107); Globulin 2.6 g/dL (2.4-3.5); Glucose 101 mg/dL (83-110); Potassium 4.2 mmol/L (3.5-5.1); Protein, Total 6.1 g/dL (5.8-8.1); Sodium 138 mmol/L (136-145)
--- NOTE | 2020-09-15 11:40 | CT ---
CT Stone Protocol: 09/15/2020 11:05 AM HISTORY: Left lower quadrant abdominal pain COMPARISON: None. TECHNIQUE: Multiple contiguous axial images were obtained and a CT of the abdomen and pelvis without IV contrast . Coronal and sagittal reformats were performed. FINDINGS: This examination is limited for the evaluation of solid organs and vascular structures due to the lac k of intravenous contrast. Lower Chest: Bilateral peripheral atelectasis. Abdomen: Liver: within normal limits. Bile Ducts: Normal caliber. Gallbladder: Dependent calcified gallstones. Pancreas: within normal limits. Spleen: within normal limits. Adrenals: within normal limits. Kidneys: Bilateral nonobstructing calcifications measuring up to 9 mm in size. Stranding changes are seen adjacent to the left kidney. Pelvis: Reproductive Organs: No pelvic masses. Ureters: within normal limits. Bladder: Mostly decompressed by a Chin catheter. There appear to be dependent calcifications in the urinary bladder. Bowel: Normal caliber. Scattered diverticula in the colon. Mesenteric Lymph Nodes: No enlarged mesenteric lymph nodes. Peritoneum: No ascites or free air, no fluid collection. Vessels: Atherosclerotic calcifications in the aorta Retroperitoneum: within normal limits. Abdominal Wall: 1.4 similar fat-containing umbilical hernia. Bones: Degenerative changes in the spine. IMPRESSION: 1. Stranding changes adjacent to the left kidney may be secondary to pyelonephritis. Evaluation is li mited without IV contrast. If the patient does not have a urinalysis suspicious for urinary tract infection, then a CT with contrast should be performed to better evaluate the left kidney. 2. Nonobstructing bilateral renal and urinary bladder calcifications. 3. Cholelithiasis 4. Diverticulosis
[2020-09-15] MEDS ORDERED: cefTRIAXone\\ROCEPHIN 2 GM VIAL ONE (12:24)
[2020-09-15] MEDS ORDERED: Vancomycin 1.5 GRAM/300 ML BAG 1.5 GM in Premix Bag 1 BAG IVPB SCH (12:45)
[2020-09-15] MEDS ORDERED: Heparin 1,000 UNITS/ML VIAL ONE (14:25)
--- NOTE | 2020-09-15 16:31 | HP ---
PRIMARY CARE PROVIDER: Stormy Zamora. PRIMARY UROLOGIST: Zaire Ortiz MD CHIEF COMPLAINT: Left flank pain, fever, and chills. HISTORY OF PRESENT ILLNESS: This is a 75-year-old male with a significant history of Guillain-Bonsall syndrome with nonambulatory status, status post chronic indwelling Chin catheter insertion due to neurogenic bladder, developing increasing left flank pain with general malaise. The patient states he was treated with oral antibiotics several weeks prior to this evaluation; however, has not been on any current antibiotic therapy. The patient states his Chin catheter is changed every month by [facility], but has noted purulent drainage around the Chin catheter tube on his urethra. The patient also admits to left flank pain and abdominal discomfort with some bloating. The patient did not take any specific medication to alleviate his symptoms at home. The patient states he receives home health services including physical therapy due to the lasting effects of Guillain-Bonsall syndrome, leaving him with severe weakness of his lower extremities. In the emergency room, the patient underwent general evaluation including CT imaging of the abdomen and pelvis, showing evidence of left kidney stranding, concerning for pyelonephritis. Urinalysis also confirming infectious process, at which point the patient received IV vancomycin and Rocephin in addition to intravenous fluids in the emergency room. The patient was not meeting sepsis criteria during initial evaluation. PAST MEDICAL HISTORY: 1. Guillain-Bonsall syndrome with nonambulatory status. 2. Diabetes mellitus, type 2. 3. Hypertension. 4. Hyperlipidemia. 5. First-degree AV block. 6. Coronary artery disease. PAST SURGICAL HISTORY: 1. Status post coronary artery bypass grafting x4 vessels. 2. Status post left knee surgery. CURRENT MEDICATIONS: 1. Aspirin 325 mg p.o. daily. 2. Lipitor 80 mg p.o. daily. 3. Avodart 0.5 mg p.o. daily. 4. Flomax 0.4 mg p.o. daily. 5. Lasix 40 mg p.o. b.i.d. 6. Lisinopril 5 mg p.o. daily. 7. Metformin 1000 mg p.o. b.i.d. 8. Myrbetriq extended release 50 mg p.o. daily. 9. Metoprolol succinate 50 mg p.o. b.i.d. 10. Potassium chloride 20 mEq p.o. daily. 11. Pregabalin 75 mg p.o. b.i.d. 12. Protonix 40 mg p.o. daily. ALLERGIES: NO KNOWN DRUG ALLERGIES. FAMILY HISTORY: Positive for coronary artery disease. SOCIAL HISTORY: Resides in [place], [place]. No alcohol, tobacco, or illicit drug use. Retired utilities worker. Receiving home health services with physical therapy and general nursing care. REVIEW OF SYSTEMS: CONSTITUTIONAL: Negative for weight loss or gain, ability to conduct usual activities. SKIN: Negative for rash, itching. EYES: Negative for double vision, pain. ENT/MOUTH: Negative for nose bleeding, neck stiffness, pain, tenderness. CARDIOVASCULAR: Negative for palpitations, dyspnea on exertion, orthopnea. RESPIRATORY: Negative for shortness of breath, wheezing, cough, hemoptysis, fever or night sweats. GASTROINTESTINAL: Negative for poor appetite, abdominal pain, heartburn, nausea, vomiting, constipation, or diarrhea. GENITOURINARY: Negative for urgency, frequency, dysuria, nocturia. MUSCULOSKELETAL: Negative for pain, swelling. NEUROLOGIC/PSYCHIATRIC: Negative for anxiety, depression. ALLERGY/IMMUNOLOGIC: Negative for skin rash, bleeding tendency. Otherwise negative except as stated per HPI. PHYSICAL EXAMINATION: VITAL SIGNS ON ADMISSION: Blood pressure 165/99, pulse 67, respiratory rate 18, temperature 98.3 degrees Fahrenheit, and O2 saturation 96% on room air. GENERAL APPEARANCE: This is a 75-year-old male, alert and oriented x3, pleasant, responsive, in no acute distress. HEENT: Pupils are equal, round, and reactive to light and accommodation. Extraocular muscles are intact. No scleral icterus. No conjunctival injection. Nares patent. OP is clear. Teeth in fair repair. NECK: Supple. No cervical adenopathy. No thyromegaly. No carotid bruits. No JVD appreciated. Cervical spine with full active and passive range of motion. No meningeal signs noted. CHEST: Lungs are clear to auscultation bilaterally. CARDIOVASCULAR: S1 and S2 without noted murmur, rub, or gallop. ABDOMEN: Obese, soft with mild tenderness to palpation in the left flank and CVA distribution. Bowel sounds are positive in all 4 quadrants. No palpable mass. Landmarks difficult to palpate due to the patient's body habitus. EXTREMITIES: Warm and dry with fair turgor. No asymmetric edema appreciated. Pulses palpable distally at the dorsalis pedis, posterior tibial, and popliteal arteries bilaterally. Capillary refill less than 2 seconds. NEUROLOGIC: Cranial nerves 2 through 12 are grossly intact. Moves toes on command, but unable to lift lower extremities off the bed. Moves upper extremities on command. : Chin catheter in place with turbid urine. PERTINENT LABORATORY AND X-RAY FINDINGS: Sodium 138, potassium 4.2, chloride 104, CO2 of 21, BUN 17, creatinine 0.57, glucose 101, calcium 8.9, AST 46, ALT of 69, and alkaline phosphatase 59. CBC showed a white blood cell count of 14.4, hemoglobin 15, hematocrit 47, and platelet count 202 with 85% neutrophils. Urinalysis showed a turbid specimen, specific gravity 1.025, positive protein, large blood and leukocyte esterase with 11 to 20 rbc's per high-powered field, 21-50 wbc's per high-powered field, 4+ bacteria, and 3+ calcium oxalate crystals. CT of the abdomen and pelvis dated 09/15/2020 showed left kidney stranding, consistent with pyelonephritis. Nonobstructing bilateral renal and urinary bladder calcifications. Cholelithiasis and diverticulosis noted. ASSESSMENT AND PLAN: 1. Catheter-associated urinary tract infection. The patient will be admitted to the medical floor. The patient with chronic indwelling Chin catheter presenting with complicated urinary tract infection. Continue Rocephin 2 g IV daily with addition of vancomycin 1 g IV q.12 h. Continue intravenous normal saline at 100 mL/hour. Chin catheter exchanged in the emergency department. Await final urine culture results. 2. Pyelonephritis of the left kidney. Continue treatment as outlined in #1. No current evidence to suggest an abscess. Continue to monitor clinical response. 3. Neurogenic bladder. Continue Chin catheter for decompression. Chin catheter exchanged in the emergency room. Continue Avodart and Flomax. 4. 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 Continue routine supportive management. Routine turning protocol. Continue Myrbetriq extended release 50 mg daily. 5. Hypertension. Resume home blood pressure regimen and monitor clinical response. 6. Prophylaxis. Sequential compression devices while in bed. Pepcid 20 mg p.o. b.i.d. 7. Code status is full. Surrogate medical decision maker is the patient's spouse. Job ID: [id number]
[2020-09-15] MEDS ORDERED: hydrALAZINE 20 MG/ML VIAL SLOW IVP PRN (22:39)
[2020-09-15] MEDS ORDERED: Vancomycin HCl 1 GM in Sodium Chloride 0.9% 250 ML 250 ML IVPB SCH (22:39)
[2020-09-15] MEDS ORDERED: Ondansetron ODT 4 MG TAB PO PRN (22:39)
[2020-09-15] MEDS ORDERED: Ondansetron PF 4 MG/2 ML Vial IVP PRN (22:39)
[2020-09-15 22:42] VITALS: BMI 34.0
[2020-09-15] MEDS ORDERED: Famotidine 20 MG TAB PO SCH (22:45)
[2020-09-15] MEDS ORDERED: Pregabalin 75 MG CAP PO SCH (23:00)
[2020-09-15] MEDS: Sodium Chloride 0.9% 1,000 ML IV SCH (23:26)
[2020-09-16 00:05] LABS: SARS-CoV-2 MS2 Positive; SARS-CoV-2 N Gene Positive; SARS-CoV-2 S Gene Positive; SARS-CoV-2 by NAA DETECTED (NotDetected); SARS-CoV-2 orf1ab Positive
[2020-09-16] MEDS: Vancomycin 1.5 GRAM/300 ML BAG 1.5 GM in Premix Bag 1 BAG IVPB SCH ×2 (01:19→08:56)
[2020-09-16 06:01] LABS: #Eosinphils 0.1 thou/uL (0.0-0.7); #Monocytes 1.2 thou/uL (0.11-0.59); #Neutrophils 13.8 thou/uL (1.40-6.50); %Basophils 0.3 % (0.0-1.0); %Eosinophils 0.6 % (0.0-10.0); %Lymphocytes 6.5 % (21.0-51.0); %Monocytes 7.3 % (0.0-10.0); %Neutrophils 85.4 % (42.0-75.0); Hemoglobin 13.2 g/dL (14.0-18.0); Mean Corpuscular HGB CONC 34.3 g/dL (32.0-36.0); Mean Corpuscular Hemoglobin 33.4 pg (27.0-31.0); Mean Corpuscular Volume 97.5 fL (78.0-98.0); Mean Platelet Volume 5.8 fL (7.4-10.4); Platelet Count 173 thou/uL (130-400); RBC Distribution Width 14.3 % (11.5-14.5); Red Blood Cell (RBC) Count 3.95 mill/uL (4.70-6.10); White Blood Cell (WBC) Count 16.1 thou/uL (4.8-10.8)
[2020-09-16 06:20] LABS: ALT (SGPT) 43 U/L (8-55); AST (SGOT) 16 U/L (5-34); Albumin 3.1 g/dL (3.4-4.8); Alkaline Phosphatase 54 U/L (40-110); Anion Gap 15 mmol/L (10-20); BUN (Urea Nitrogen) 12 mg/dL (8.4-25.7); Bilirubin, Total 1.2 mg/dL (0.2-1.2); Calc. Creatinine Clearance 178 mL/min (70-130); Calcium 8.4 mg/dL (7.8-10.44); Carbon Dioxide 23 mmol/L (23-31); Chloride 102 mmol/L (98-107); Globulin 2.4 g/dL (2.4-3.5); Glucose 129 mg/dL (83-110); Potassium 3.6 mmol/L (3.5-5.1); Protein, Total 5.5 g/dL (5.8-8.1); Sodium 136 mmol/L (136-145)
[2020-09-16] MEDS: Aspirin 325 MG TAB PO SCH (08:56)
[2020-09-16] MEDS: Cholecalciferol 1,000 UNITS (25 MCG) TAB PO SCH (08:57)
[2020-09-16] MEDS: Ascorbic Acid 500 mg Chewable Tablet PO SCH (08:57)
[2020-09-16] MEDS: Pregabalin 75 MG CAP PO SCH ×2 (08:58→21:08)
[2020-09-16] MEDS: Tamsulosin HCl 0.4 MG CAP PO SCH (08:59)
[2020-09-16] MEDS: Dutasteride 0.5 MG CAP PO SCH (08:59)
[2020-09-16] MEDS: Famotidine 20 MG TAB PO SCH ×2 (08:59→21:08)
[2020-09-16] MEDS: Lisinopril 5 MG TAB PO SCH (08:59)
[2020-09-16] MEDS: Zinc Sulfate 220 MG CAP PO SCH (08:59)
--- NOTE | 2020-09-16 09:00 | RAD ---
EXAM: CHEST ONE VIEW HISTORY: Covid positive. COMPARISON: 01/18/2020 FINDINGS: Postoperative changes related to median sternotomy are again seen. Cardiac silhouette is magnified by projection. Pulmonary vasculature is within normal limits. No parenchymal consolidation or pleural fluid is seen. However, there is an irregular area of increased density overlying the right mid lung zone which could be related to calcification or irregular parenchymal airspace opacity. Follow-up CT thorax may be helpful. Degenerative changes are seen in the spine. IMPRESSION: 1. Irregular area of increased density right midlung zone which could be related to calcification in this region. However, irregular small parenchymal nodular density is a possibility. Follow-up CT thorax is suggested. 2. Chest radiographs exhibit low sensitivity for evaluation of subtle groundglass opacities which can be seen with Covid pneumonia. Recent CT abdomen does demonstrate a few minimal patchy densities at each lung base which are overall nonspecific and cannot be definitively confirmed to be secondary to Covid pneumonia; although, this is a differential consideration. CT thorax may be helpful for further evaluation.
[2020-09-16] MEDS: Atorvastatin Calcium 40 MG TAB PO SCH (09:04)
[2020-09-16] MEDS ORDERED: cefTRIAXone\\ROCEPHIN 2 GM in Sodium Chloride 0.9% 100 ML IVPB SCH (13:00)
[2020-09-16 15:32] LABS: Vancomycin, Trough 28.2 ug/mL
[2020-09-16] MEDS: Sodium Chloride 0.9% 1,000 ML IV SCH ×2 (15:56→17:00)
[2020-09-16] MEDS ORDERED: Dextrose 50% Abboject 50 ML SYRINGE SLOW IVP PRN (16:23)
[2020-09-16] MEDS ORDERED: HumaLOG 300 UNITS/3 ML VIAL SC PRN ×2 (16:23)
[2020-09-16] MEDS ORDERED: Dextrose 5% in Water 1,000 ML IV PRN (16:23)
--- NOTE | 2020-09-16 16:26 | PDOC.HOSPP ---
- Subjective Encounter Date: 09/16/20 Encounter Time: 08:50 Subjective: no sob or nausea some dry cough, no sputum production or runny nose feels better his son was +ve for covid and had minimal symptoms, infact he is going back to work now. does not have any symptoms, he and his were quarantining at home. - Objective Vital Signs & Weight: Vital Signs (12 hours) Temp Pulse Resp BP Pulse Ox 09/16/20 12:00 99.0 F 71 18 109/69 97 09/16/20 08:59 81 09/16/20 08:00 99 F 83 19 154/90 H 95 Weight Admit Weight 243 lb 9.6 oz Weight 243 lb 9.773 oz I&O: 09/15/20 09/16/20 09/17/20 06:59 06:59 06:59 Intake Total 1000 Output Total 1600 Balance -600 Result Diagrams: 09/16/20 05:35 09/16/20 05:35 Additional Labs: Accuchecks 09/16/20 09/16/20 11:49 04:55 POC Glucose 114 H 141 H Hospitalist ROS - Medication Medications: Active Medications Generic Name Dose Route Start Last Admin Trade Name Freq PRN Reason Stop Dose Admin Ascorbic Acid 1,000 mg 09/16/20 09:00 09/16/20 08:57 Ascorbic Acid 500 Mg Chewable Tablet PO 1,000 mg DAILY WARREN Administration Aspirin 325 mg 09/16/20 08:00 09/16/20 08:56 Aspirin 325 Mg Tab PO 325 mg QA- WARREN Administration Atorvastatin Calcium 80 mg 09/16/20 09:00 09/16/20 09:04 Atorvastatin Calcium 40 Mg Tab PO 80 mg DAILY WARREN Administration Cholecalciferol 5,000 units 09/16/20 09:00 09/16/20 08:57 Cholecalciferol 1,000 Units (25 Mcg) Tab PO 5,000 units DAILY WARREN Administration Dutasteride 0.5 mg 09/16/20 09:00 09/16/20 08:59 Dutasteride 0.5 Mg Cap PO 0.5 mg DAILY WARREN Administration Famotidine 20 mg 09/16/20 09:00 09/16/20 08:59 Famotidine 20 Mg Tab PO 20 mg BID WARREN Administration Sodium Chloride 1,000 mls @ 100 mls/hr 09/15/20 22:39 09/16/20 15:56 Normal Saline 0.9% IV 1,000 mls .Q10H WARREN Administration Ceftriaxone Sodium 2 gm/ 100 mls @ 200 mls/hr 09/16/20 13:00 09/16/20 11:43 Sodium Chloride IVPB 100 mls 1300 WARREN Administration Lisinopril 5 mg 09/16/20 09:00 09/16/20 08:59 Lisinopril 5 Mg Tab PO 5 mg DAILY WARREN Administration Metoprolol Succinate 50 mg 09/16/20 09:00 09/16/20 08:59 Metoprolol Succinate Xl 50 Mg Tab PO 50 mg BID WARREN Administration Mirabegron 50 mg 09/16/20 09:00 09/16/20 08:56 Mirabegron Er 25 Mg Tab PO 50 mg DAILY WARREN Administration Pregabalin 75 mg 09/16/20 09:00 09/16/20 08:58 Pregabalin 75 Mg Cap PO 75 mg BID WARREN Administration Tamsulosin HCl 0.4 mg 09/16/20 09:00 09/16/20 08:59 Tamsulosin Hcl 0.4 Mg Cap PO 0.4 mg DAILY WARREN Administration Zinc Sulfate 220 mg 09/16/20 09:00 09/16/20 08:59 Zinc Sulfate 220 Mg Cap PO 220 mg DAILY WARREN Administration - Exam General Appearance: awake alert Eye: PERRL, anicteric sclera ENT: no oropharyngeal lesions, moist mucosa Neck: supple, no JVD Heart: RRR, no murmur Respiratory: no wheezes, no rales Gastrointestinal: soft, non-tender, non-distended, normal bowel sounds Extremities: no cyanosis, no edema Neurological: cranial nerve grossly intact, no focal deficits Psychiatric: normal affect, A&O x 3 Hosp A/P (1) UTI (urinary tract infection) Status: Acute Qualifiers: Urinary tract infection type: catheter-associated UTI Indwelling urinary catheter type: indwelling urethral catheter Encounter type: subsequent encounter Qualified Code(s): T83.511D - Infection and inflammatory reaction due to indwelling urethral catheter, subsequent encounter; N39.0 - Urinary tract infection, site not specified (2) COVID-19 virus infection Code(s): U07.1 - COVID-19 Status: Acute (3) CAD (coronary artery disease) Code(s): I25.10 - ATHSCL HEART DISEASE OF [place] CORONARY ARTERY W/O ANG PCTRS Status: Chronic Qualifiers: Coronary Disease-Associated Artery/Lesion type: bypass graft [place] vs. 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) Code(s): G61.0 - GUILLAIN-BARRE SYNDROME Status: Chronic (6) GERD (gastroesophageal reflux disease) Code(s): K21.9 - GASTRO-ESOPHAGEAL REFLUX DISEASE WITHOUT ESOPHAGITIS Status: Chronic Qualifiers: Esophagitis presence: esophagitis presence not specified Qualified Code(s): K21.9 - Gastro-esophageal reflux disease without esophagitis (7) HLD (hyperlipidemia) Code(s): E78.5 - HYPERLIPIDEMIA, UNSPECIFIED Status: Chronic (8) HTN (hypertension) Code(s): I10 - ESSENTIAL (PRIMARY) HYPERTENSION Status: Chronic Qualifiers: Hypertension type: essential hypertension Qualified Code(s): I10 - Essential (primary) hypertension - Plan CT chest to r/o infiltrates, is on room air, will get ID consultation to see if he qualifies for remdesivir in view of multiple risk factors to get worse is on ceftriaxone and vanc, await full culture results continue toprol, lisinopril, avodart, asp, lipitor, myrbetriq, flomax and lyrica is wheel chair bound, but can dress himself and mobilize to sitting position, son helps him to get into wheel chair at home 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
[2020-09-16] MEDS: Acetaminophen 500 MG TAB PO PRN (18:39)
[2020-09-16] MEDS: MEROPENEM 1 GM/50 ML 1 GM in Premix Bag 1 BAG IVPB SCH (21:09)
--- NOTE | 2020-09-16 23:54 | CON ---
DATE OF CONSULTATION: 09/16/2020 REASON FOR CONSULTATION: Urinary tract infection. 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 He was seen by Dr. Martinez and apparently, the patient had had a diarrheal illness three weeks before and then noticed some progressive weakness, started falling, oozing feeling in his toes, and loss of bowel and bladder control. Did not have any facial weakness or swallowing problems. No double vision. MRI cervical and lumbar spine were normal. He had a CSF evaluation and IgG quantitation was high at 9.3. Immunoglobulin G was 2700, which was high as well. The CSF serum albumin index was high and the CSF showed 7 WBCs with glucose of 163 and protein of 123. I did not see any assays for West Nile virus or other viruses in the CSF. The cervical spine MRI report showed multilevel variable severity canal and foraminal stenosis including C3-4, 4-5, 5-6, and 6-7, those are graded as moderate. He was given IVIG with some improvement, but he remained with severe weakness in all 4 extremities and hyporeflexia. He has had to be chronically catheterized in urinary tract, has had some issues with obstruction and bleeding. Traumatic Chin catheterization which had to be assessed by Urology, Dr. Ortiz in June 2020. At this time, he was brought in because of sudden development of left flank pain, was quite intense to the point that he was crying from it. The last catheter exchange was about a month before and he was having some discomfort emptying his Chin catheter. Currently, he is feeling still some pain in the penile area. He denies any headaches. No visual symptoms, sore throat, odynophagia, or dysphagia. No vomiting. No chills. No cough. No sputum production. No back pain. No abdominal pain. The flank pain has improved. He does have sensation in the lower extremities and abdominal area. 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 SOCIAL HISTORY: Retired from working in [email or web address] company. He lives in [place] with his in a farm. He spends most of the time in bed because of his neurological deficit. Never smoker. ALLERGIES: NONE. FAMILY HISTORY: Noncontributory. CURRENT MEDICATIONS: 1. Vitamin C. 2. Lipitor. 3. Rocephin. 4. Lisinopril. PHYSICAL EXAMINATION: VITAL SIGNS: T-max 99.1, blood pressure 109/69, heart rate 71, respiratory rate 18, O2 saturation 97. SKIN: Shows a few areas of erythema, round shaped about less than 1 cm in the hip and he has a quite extensive area of erythema and maceration around the gluteal regions, probably from pressure. Small ulceration, probably also pressure in the medial aspect of the right elbow. Has a peripheral IV access and a Chin catheter. There is somewhat yellow kind of purulent looking secretion at the urethral meatus. HEENT: No lymphadenopathy. Ocular movements are conjugate. Oral cavity with still quite a few teeth in place. Some dry oral mucosa. No jugular vein distention. LUNGS: Symmetric air entry. No crackles or wheezing. HEART: S1, S2. Regular rate. No S3 or S4. ABDOMEN: Soft, some tenderness in the left flank area. EXTREMITIES: Quadriparesis. He is able to lift his knees from the bed. Hyporeflexia. Atrophy of the interosseous muscles of the hand. NEUROLOGIC: His cognitive function appears to be intact. LABORATORY DATA: White cell count 16.1, hemoglobin 13, platelets 173 with 85% neutrophils. Creatinine is 0.56. Ferritin 570. CRP 11.69. Urinalysis with 21 to 50 wbc's. SARS-CoV-2 serology was positive. Chest x-ray with irregular area of increased density in right mid lung zone. Recent CT abdomen showed a few minimal patchy densities at each lung base. Had a CT of the abdomen and pelvis from September 15, which showed stranding adjacent left kidney, but no obstruction, nonobstructing bilateral renal and urinary bladder calcification, cholelithiasis. ASSESSMENT: 1. 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 2. Flank pain associated with changes in both urinalysis as well as an imaging study consistent with pyelonephritis, chronic indwelling Chin catheter related. 3. Benign prostatic hypertrophy with requirement for chronic urinary catheterization. 4. Positive SARS-CoV-2 PCR without significant respiratory tract involvement yet. DISCUSSION: The patient has urosepsis related to pyelonephritis from chronic Chin catheterization. He has BPH associated with it. The patient has mild SARS-CoV-2 infection thus far and I do not think he needs a CT scan of the chest or any treatment for it right now, just monitor his O2 saturations and clinical examination. We will switch him to meropenem until we have susceptibility of the organisms identified. I do not know if there is any plan for any urological intervention in the future. The patient did have CSF findings that were consistent with Guillain-[place] I believe, although his cells were somewhat mildly elevated in CSF when he was initially seen. No assays had been submitted for viral infection, such as West Nile, herpes simplex, etc. He also did have some moderate compression of the C-spine on MRI, but not enough to cause the severity of his weakness, so I will switch him to Merrem, manage SARS-CoV-[address] scan of chest and await on susceptibility results. He may be a candidate for suprapubic catheter placement. Job ID: [id number] MTDD
[2020-09-16] MEDS ORDERED: Vancomycin HCl 1.75 GM in Sodium Chloride 0.9% 500 ML IVPB SCH (23:59)
[2020-09-17] MEDS: Sodium Chloride 0.9% 1,000 ML IV SCH ×2 (02:32→13:15)
[2020-09-17] MEDS: MEROPENEM 1 GM/50 ML 1 GM in Premix Bag 1 BAG IVPB SCH ×3 (05:56→21:26)
[2020-09-17] MEDS: Acetaminophen 500 MG TAB PO PRN ×3 (06:27→21:25)
[2020-09-17] MEDS: Ascorbic Acid 500 mg Chewable Tablet PO SCH (08:19)
[2020-09-17] MEDS: Aspirin 325 MG TAB PO SCH (08:19)
[2020-09-17] MEDS: Atorvastatin Calcium 40 MG TAB PO SCH (08:20)
[2020-09-17] MEDS: Cholecalciferol 1,000 UNITS (25 MCG) TAB PO SCH (08:20)
[2020-09-17] MEDS: Lisinopril 5 MG TAB PO SCH (08:21)
[2020-09-17] MEDS: Famotidine 20 MG TAB PO SCH ×2 (08:21→21:24)
[2020-09-17] MEDS: Dutasteride 0.5 MG CAP PO SCH (08:21)
[2020-09-17] MEDS: Pregabalin 75 MG CAP PO SCH ×2 (08:22→21:24)
[2020-09-17] MEDS: Tamsulosin HCl 0.4 MG CAP PO SCH (08:22)
[2020-09-17] MEDS: Zinc Sulfate 220 MG CAP PO SCH (08:22)
--- NOTE | 2020-09-17 14:25 | PDOC.HOSPP ---
- Subjective Encounter Date: 09/17/20 Encounter Time: 09:00 Subjective: feels better, no abd pain or nausea no sob, is eating well - Objective Vital Signs & Weight: Vital Signs (12 hours) Temp Pulse Resp BP BP Pulse Ox 09/17/20 12:00 98.4 F 62 15 123/71 99 09/17/20 08:21 79 157/107 H 09/17/20 08:00 97.4 F L 69 15 129/75 98 09/17/20 06:27 100.0 F H 79 18 157/107 H Weight Admit Weight 243 lb 9.6 oz Weight 243 lb 9.773 oz I&O: 09/16/20 09/17/20 09/18/20 06:59 06:59 06:59 Intake Total 1000 1800 Output Total 1600 1700 Balance -600 100 Result Diagrams: 09/16/20 05:35 09/16/20 05:35 Additional Labs: Accuchecks 09/17/20 09/17/20 09/16/20 12:27 06:12 21:01 POC Glucose 126 H 126 H 139 H 09/16/20 17:17 POC Glucose 129 H Hospitalist ROS - Medication Medications: Active Medications Generic Name Dose Route Start Last Admin Trade Name Freq PRN Reason Stop Dose Admin Acetaminophen 1,000 mg 09/15/20 22:39 09/17/20 06:27 Acetaminophen 500 Mg Tab PO 1,000 mg Q6H PRN Administration Mild Pain (1-3) Ascorbic Acid 1,000 mg 09/16/20 09:00 09/17/20 08:19 Ascorbic Acid 500 Mg Chewable Tablet PO 1,000 mg DAILY WARREN Administration Aspirin 325 mg 09/16/20 08:00 09/17/20 08:19 Aspirin 325 Mg Tab PO 325 mg [facility] WARREN Administration Atorvastatin Calcium 80 mg 09/16/20 09:00 09/17/20 08:20 Atorvastatin Calcium 40 Mg Tab PO 80 mg DAILY WARREN Administration Cholecalciferol 5,000 units 09/16/20 09:00 09/17/20 08:20 Cholecalciferol 1,000 Units (25 Mcg) Tab PO 5,000 units DAILY WARREN Administration Dutasteride 0.5 mg 09/16/20 09:00 09/17/20 08:21 Dutasteride 0.5 Mg Cap PO 0.5 mg DAILY WARREN Administration Famotidine 20 mg 09/16/20 09:00 09/17/20 08:21 Famotidine 20 Mg Tab PO 20 mg BID WARREN Administration Sodium Chloride 1,000 mls @ 100 mls/hr 09/15/20 22:39 09/17/20 13:15 Normal Saline 0.9% IV 1,000 mls .Q10H WARREN Administration Meropenem 1 gm/ Device 50 mls @ 100 mls/hr 09/16/20 22:00 09/17/20 13:14 IVPB 50 mls Q8HR WARREN Administration Lisinopril 5 mg 09/16/20 09:00 09/17/20 08:21 Lisinopril 5 Mg Tab PO 5 mg DAILY WARREN Administration Metoprolol Succinate 50 mg 09/16/20 09:00 09/17/20 08:22 Metoprolol Succinate Xl 50 Mg Tab PO 50 mg BID WARREN Administration Mirabegron 50 mg 09/16/20 09:00 09/17/20 08:22 Mirabegron Er 25 Mg Tab PO 50 mg DAILY WARREN Administration Pregabalin 75 mg 09/16/20 09:00 09/17/20 08:22 Pregabalin 75 Mg Cap PO 75 mg BID WARREN Administration Tamsulosin HCl 0.4 mg 09/16/20 09:00 09/17/20 08:22 Tamsulosin Hcl 0.4 Mg Cap PO 0.4 mg DAILY WARREN Administration Zinc Sulfate 220 mg 09/16/20 09:00 09/17/20 08:22 Zinc Sulfate 220 Mg Cap PO 220 mg DAILY WARREN Administration - Exam General Appearance: awake alert Eye: PERRL, anicteric sclera ENT: no oropharyngeal lesions, moist mucosa Neck: supple, no JVD Heart: RRR, no murmur Respiratory: no wheezes, no rales Gastrointestinal: soft, non-tender, non-distended, normal bowel sounds Extremities: no cyanosis, no edema Neurological - other findings: paraplegia, wasting of small muscles of b/l hands Psychiatric: normal affect, A&O x 3 Hosp A/P (1) UTI (urinary tract infection) Status: Acute Qualifiers: Urinary tract infection type: catheter-associated UTI Indwelling urinary catheter type: indwelling urethral catheter Encounter type: subsequent encounter Qualified Code(s): T83.511D - Infection and inflammatory reaction due to indwelling urethral catheter, subsequent encounter; N39.0 - Urinary tract infection, site not specified (2) COVID-19 virus infection Code(s): U07.1 - COVID-19 Status: Acute (3) CAD (coronary artery disease) Code(s): I25.10 - ATHSCL HEART DISEASE OF [place] CORONARY ARTERY W/O ANG PCTRS Status: Chronic Qualifiers: Coronary Disease-Associated Artery/Lesion type: bypass graft [place] vs. 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 - GUILLAIN-BARRE SYNDROME Status: Chronic (6) GERD (gastroesophageal reflux disease) Code(s): K21.9 - GASTRO-ESOPHAGEAL REFLUX DISEASE WITHOUT ESOPHAGITIS Status: Chronic Qualifiers: Esophagitis presence: esophagitis presence not specified Qualified Code(s): K21.9 - Gastro-esophageal reflux disease without esophagitis (7) HLD (hyperlipidemia) Code(s): E78.5 - HYPERLIPIDEMIA, UNSPECIFIED Status: Chronic (8) HTN (hypertension) Code(s): I10 - ESSENTIAL (PRIMARY) HYPERTENSION Status: Chronic Qualifiers: Hypertension type: essential hypertension Qualified Code(s): I10 - Essential (primary) hypertension (9) Moderate protein malnutrition Code(s): E44.0 - MODERATE PROTEIN-CALORIE MALNUTRITION Status: Chronic - Plan is on room air, no covid related symptoms, appreciate help. is on meropenem, urine culture is growing more than 3 organisms, microbiology dept needs to be informed if further growth needs to be done with sensitivity. ?picc line, await adv. 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
[2020-09-18] MEDS: Sodium Chloride 0.9% 1,000 ML IV SCH ×2 (00:50→13:08)
[2020-09-18] MEDS: MEROPENEM 1 GM/50 ML 1 GM in Premix Bag 1 BAG IVPB SCH ×3 (05:26→21:45)
[2020-09-18] MEDS: Acetaminophen 500 MG TAB PO PRN ×2 (05:28→21:11)
[2020-09-18] MEDS: Pregabalin 75 MG CAP PO SCH ×2 (08:33→21:10)
[2020-09-18] MEDS: Aspirin 325 MG TAB PO SCH (08:33)
[2020-09-18] MEDS: Ascorbic Acid 500 mg Chewable Tablet PO SCH (08:33)
[2020-09-18] MEDS: Famotidine 20 MG TAB PO SCH ×2 (08:33→21:11)
[2020-09-18] MEDS: Cholecalciferol 1,000 UNITS (25 MCG) TAB PO SCH (08:33)
[2020-09-18] MEDS: Lisinopril 5 MG TAB PO SCH (08:33)
[2020-09-18] MEDS: Tamsulosin HCl 0.4 MG CAP PO SCH (08:33)
[2020-09-18] MEDS: Zinc Sulfate 220 MG CAP PO SCH (08:33)
[2020-09-18] MEDS: Atorvastatin Calcium 40 MG TAB PO SCH (08:34)
[2020-09-18] MEDS: Dutasteride 0.5 MG CAP PO SCH (08:34)
[2020-09-18 09:13] LABS: Anion Gap 15 mmol/L (10-20); BUN (Urea Nitrogen) 6 mg/dL (8.4-25.7); Calc. Creatinine Clearance 188 mL/min (70-130); Carbon Dioxide 23 mmol/L (23-31); Chloride 104 mmol/L (98-107); Glucose 142 mg/dL (83-110); Potassium 4.2 mmol/L (3.5-5.1); Sodium 138 mmol/L (136-145)
[2020-09-18 10:26] LABS: Band 9 % (5-11); Eosinophils 1 % (0-10); Hemoglobin 12.8 g/dL (14.0-18.0); Lymphocytes 16 % (21-51); MDiff Complete? YES; Mean Corpuscular HGB CONC 34.2 g/dL (32.0-36.0); Mean Corpuscular Hemoglobin 32.4 pg (27.0-31.0); Mean Corpuscular Volume 94.6 fL (78.0-98.0); Mean Platelet Volume 5.9 fL (7.4-10.4); Monocytes 7 % (0-10); Neutrophil 68 % (42-75); Platelet Count 153 thou/uL (130-400); RBC Distribution Width 14.1 % (11.5-14.5); Red Blood Cell (RBC) Count 3.95 mill/uL (4.70-6.10)
--- NOTE | 2020-09-18 14:11 | PDOC.HOSPP ---
- Subjective Encounter Date: 09/18/20 Encounter Time: 14:10 Subjective: Mr. Salazar was seen today in follow-up of UTI and COVID infection. He says the flank pain has improved. He denies any respiratory symptoms related to COVID infection. He denies shortness of breath. He notes just an occsional cough. - Objective Vital Signs & Weight: Vital Signs (12 hours) Temp Pulse Resp BP BP Pulse Ox 09/18/20 11:00 98.5 F 67 18 108/63 99 09/18/20 08:33 79 128/71 09/18/20 08:18 99.9 F H 79 18 128/71 99 09/18/20 08:00 99 09/18/20 05:28 103.1 F H 09/18/20 04:00 103.1 F H Weight Admit Weight 243 lb 9.6 oz Weight 243 lb 9.773 oz I&O: 09/17/20 09/18/20 09/19/20 06:59 06:59 06:59 Intake Total 1800 Output Total 1700 1150 Balance 100 -1150 Result Diagrams: 09/18/20 08:32 09/18/20 08:32 Additional Labs: Accuchecks 09/18/20 09/18/20 09/17/20 11:26 05:13 20:49 POC Glucose 136 H 113 H 122 H 09/17/20 15:48 POC Glucose 97 Hospitalist ROS - Medication Medications: Active Medications Generic Name Dose Route Start Last Admin Trade Name Freq PRN Reason Stop Dose Admin Acetaminophen 1,000 mg 09/15/20 22:39 09/18/20 05:28 Acetaminophen 500 Mg Tab PO 1,000 mg Q6H PRN Administration Mild Pain (1-3) Ascorbic Acid 1,000 mg 09/16/20 09:00 09/18/20 08:33 Ascorbic Acid 500 Mg Chewable Tablet PO 1,000 mg DAILY WARREN Administration Aspirin 325 mg 09/16/20 08:00 09/18/20 08:33 Aspirin 325 Mg Tab PO 325 mg QAM-WM WARREN Administration Atorvastatin Calcium 80 mg 09/16/20 09:00 09/18/20 08:34 Atorvastatin Calcium 40 Mg Tab PO 80 mg DAILY WARREN Administration Cholecalciferol 5,000 units 09/16/20 09:00 09/18/20 08:33 Cholecalciferol 1,000 Units (25 Mcg) Tab PO 5,000 units DAILY WARREN Administration Dutasteride 0.5 mg 09/16/20 09:00 09/18/20 08:34 Dutasteride 0.5 Mg Cap PO 0.5 mg DAILY WARREN Administration Famotidine 20 mg 09/16/20 09:00 09/18/20 08:33 Famotidine 20 Mg Tab PO 20 mg BID WARREN Administration Sodium Chloride 1,000 mls @ 100 mls/hr 09/15/20 22:39 09/18/20 13:08 Normal Saline 0.9% IV 1,000 mls .Q10H WARREN Administration Meropenem 1 gm/ Device 50 mls @ 100 mls/hr 09/16/20 22:00 09/18/20 13:10 IVPB 50 mls Q8HR WARREN Administration Lisinopril 5 mg 09/16/20 09:00 09/18/20 08:33 Lisinopril 5 Mg Tab PO 5 mg DAILY WARREN Administration Metoprolol Succinate 50 mg 09/16/20 09:00 09/18/20 08:34 Metoprolol Succinate Xl 50 Mg Tab PO 50 mg BID WARREN Administration Mirabegron 50 mg 09/16/20 09:00 09/18/20 08:34 Mirabegron Er 25 Mg Tab PO 50 mg DAILY WARREN Administration Pregabalin 75 mg 09/16/20 09:00 09/18/20 08:33 Pregabalin 75 Mg Cap PO 75 mg BID WARREN Administration Tamsulosin HCl 0.4 mg 09/16/20 09:00 09/18/20 08:33 Tamsulosin Hcl 0.4 Mg Cap PO 0.4 mg DAILY WARREN Administration Zinc Sulfate 220 mg 09/16/20 09:00 09/18/20 08:33 Zinc Sulfate 220 Mg Cap PO 220 mg DAILY WARREN Administration - Exam Eye: PERRL, anicteric sclera Heart: RRR, no murmur, no gallops, no rubs, normal peripheral pulses Respiratory: CTAB, no wheezes, no rales, no ronchi, normal chest expansion, no tachypnea, normal percussion Gastrointestinal: soft, non-tender, non-distended, normal bowel sounds, no palpable masses, no hepatomegaly Extremities: no cyanosis Hosp A/P (1) Urinary retention Code(s): R33.9 - RETENTION OF URINE, UNSPECIFIED Status: Acute (2) COVID-19 virus infection Code(s): U07.1 - COVID-19 Status: Acute (3) UTI (urinary tract infection) Status: Acute Qualifiers: Urinary tract infection type: catheter-associated UTI Indwelling urinary catheter type: indwelling urethral catheter Encounter type: subsequent encounter Qualified Code(s): T83.511D - Infection and inflammatory reaction due to indwelling urethral catheter, subsequent encounter; N39.0 - Urinary tract infection, site not specified (4) CAD (coronary artery disease) Code(s): I25.10 - ATHSCL HEART DISEASE OF [place] CORONARY ARTERY W/O ANG PCTRS Status: Chronic Qualifiers: Coronary Disease-Associated Artery/Lesion type: bypass graft [place] vs. 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 He has clinically improved- Will continue Meropenem. 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
[2020-09-19] MEDS: Sodium Chloride 0.9% 1,000 ML IV SCH ×4 (00:50→18:16)
[2020-09-19] MEDS: MEROPENEM 1 GM/50 ML 1 GM in Premix Bag 1 BAG IVPB SCH ×3 (05:49→22:25)
[2020-09-19] MEDS: Dutasteride 0.5 MG CAP PO SCH (07:44)
[2020-09-19] MEDS: Cholecalciferol 1,000 UNITS (25 MCG) TAB PO SCH (07:44)
[2020-09-19] MEDS: Aspirin 325 MG TAB PO SCH (07:45)
[2020-09-19] MEDS: Atorvastatin Calcium 40 MG TAB PO SCH (07:45)
[2020-09-19] MEDS: Famotidine 20 MG TAB PO SCH ×2 (07:45→19:59)
[2020-09-19] MEDS: Acetaminophen 500 MG TAB PO PRN ×2 (07:45→17:53)
[2020-09-19] MEDS: Ascorbic Acid 500 mg Chewable Tablet PO SCH (07:45)
[2020-09-19] MEDS: Tamsulosin HCl 0.4 MG CAP PO SCH (07:45)
[2020-09-19] MEDS: Lisinopril 5 MG TAB PO SCH (07:46)
[2020-09-19] MEDS: Pregabalin 75 MG CAP PO SCH ×2 (07:46→19:59)
[2020-09-19] MEDS: Zinc Sulfate 220 MG CAP PO SCH (07:46)
[2020-09-19] MEDS: Enoxaparin Sodium 40 MG/0.4 ML SYRINGE SC SCH (07:47)
--- NOTE | 2020-09-19 15:25 | PDOC.HOSPP ---
- Subjective Encounter Date: 09/19/20 Encounter Time: 15:22 Subjective: Mr. Salazar was seen today in follow-up of UTI and COVID infection. He does not have any complaints. - Objective Vital Signs & Weight: Vital Signs (12 hours) Temp Pulse Resp BP BP BP Pulse Ox 09/19/20 13:00 98.7 F 09/19/20 11:59 100.2 F H 65 18 109/64 98 09/19/20 09:59 100.0 F H 09/19/20 08:15 100.0 F H 09/19/20 08:00 101.4 F H 78 18 163/80 H 98 09/19/20 07:46 78 163/80 H 09/19/20 07:45 101.4 F H 09/19/20 04:00 97.3 F L 57 L 20 143/71 H 98 Weight Admit Weight 243 lb 9.6 oz Weight 243 lb 9.773 oz I&O: 09/18/20 09/19/20 09/20/20 06:59 06:59 06:59 Intake Total 3136 Output Total 1150 3650 Balance -1150 -514 Result Diagrams: 09/18/20 08:32 09/18/20 08:32 Additional Labs: Accuchecks 09/19/20 09/19/20 09/18/20 14:58 11:02 20:51 POC Glucose 140 H 144 H 201 H 09/18/20 15:20 POC Glucose 155 H Hospitalist ROS - Medication Medications: Active Medications Generic Name Dose Route Start Last Admin Trade Name Freq PRN Reason Stop Dose Admin Acetaminophen 1,000 mg 09/15/20 22:39 09/19/20 07:45 Acetaminophen 500 Mg Tab PO 1,000 mg Q6H PRN Administration Mild Pain (1-3) Ascorbic Acid 1,000 mg 09/16/20 09:00 09/19/20 07:45 Ascorbic Acid 500 Mg Chewable Tablet PO 1,000 mg DAILY WARREN Administration Aspirin 325 mg 09/16/20 08:00 09/19/20 07:45 Aspirin 325 Mg Tab PO 325 mg QAM- WARREN Administration Atorvastatin Calcium 80 mg 09/16/20 09:00 09/19/20 07:45 Atorvastatin Calcium 40 Mg Tab PO 80 mg DAILY WARREN Administration Cholecalciferol 5,000 units 09/16/20 09:00 09/19/20 07:44 Cholecalciferol 1,000 Units (25 Mcg) Tab PO 5,000 units DAILY WARREN Administration Dutasteride 0.5 mg 09/16/20 09:00 09/19/20 07:44 Dutasteride 0.5 Mg Cap PO 0.5 mg DAILY WARREN Administration Enoxaparin Sodium 40 mg 09/19/20 09:00 09/19/20 07:47 Enoxaparin Sodium 40 Mg/0.4 Ml Syringe SC 40 mg 0900 WARREN Administration Famotidine 20 mg 09/16/20 09:00 09/19/20 07:45 Famotidine 20 Mg Tab PO 20 mg BID WARREN Administration Sodium Chloride 1,000 mls @ 100 mls/hr 09/15/20 22:39 09/19/20 12:30 Normal Saline 0.9% IV 1,000 mls .Q10H WARREN Administration Meropenem 1 gm/ Device 50 mls @ 100 mls/hr 09/16/20 22:00 09/19/20 14:44 IVPB 50 mls Q8HR WARREN Administration Lisinopril 5 mg 09/16/20 09:00 09/19/20 07:46 Lisinopril 5 Mg Tab PO 5 mg DAILY WARREN Administration Metoprolol Succinate 50 mg 09/16/20 09:00 09/19/20 07:46 Metoprolol Succinate Xl 50 Mg Tab PO 50 mg BID WARREN Administration Mirabegron 50 mg 09/16/20 09:00 09/19/20 07:46 Mirabegron Er 25 Mg Tab PO 50 mg DAILY WARREN Administration Pregabalin 75 mg 09/16/20 09:00 09/19/20 07:46 Pregabalin 75 Mg Cap PO 75 mg BID WARREN Administration Tamsulosin HCl 0.4 mg 09/16/20 09:00 09/19/20 07:45 Tamsulosin Hcl 0.4 Mg Cap PO 0.4 mg DAILY WARREN Administration Zinc Sulfate 220 mg 09/16/20 09:00 09/19/20 07:46 Zinc Sulfate 220 Mg Cap PO 220 mg DAILY WARREN Administration - Exam Eye: PERRL, anicteric sclera Heart: RRR, no murmur, no gallops, no rubs, normal peripheral pulses Respiratory: CTAB (with the exception of occasional rhonchi and coarse breath sounds) Gastrointestinal: soft, non-tender, non-distended, normal bowel sounds Extremities: no cyanosis, 2+ LE edema Hosp A/P (1) Urinary retention Code(s): R33.9 - RETENTION OF URINE, UNSPECIFIED Status: Acute (2) COVID-19 virus infection Code(s): U07.1 - COVID-19 Status: Acute (3) UTI (urinary tract infection) Status: Acute Qualifiers: Urinary tract infection type: catheter-associated UTI Indwelling urinary catheter type: indwelling urethral catheter Encounter type: subsequent encounter Qualified Code(s): T83.511D - Infection and inflammatory reaction due to indwelling urethral catheter, subsequent encounter; N39.0 - Urinary tract infection, site not specified (4) CAD (coronary artery disease) Code(s): I25.10 - ATHSCL HEART DISEASE OF [place] CORONARY ARTERY W/O ANG PCTRS Status: Chronic Qualifiers: Coronary Disease-Associated Artery/Lesion type: bypass graft [place] vs. 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 He has clinically improved- Will continue Meropenem. 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
[2020-09-19] MEDS: Polyethylene Glycol 3350 17 GM Packet PO PRN (16:06)
[2020-09-19] MEDS ORDERED: Vancomycin HCl 1.25 GM in Sodium Chloride 0.9% 250 ML 250 ML IVPB SCH (21:00)
[2020-09-20] MEDS: Acetaminophen 500 MG TAB PO PRN ×2 (02:37→17:59)
[2020-09-20] MEDS: Sodium Chloride 0.9% 1,000 ML IV SCH ×3 (03:18→20:38)
[2020-09-20] MEDS: MEROPENEM 1 GM/50 ML 1 GM in Premix Bag 1 BAG IVPB SCH ×2 (05:25→13:09)
[2020-09-20] MEDS: Cholecalciferol 1,000 UNITS (25 MCG) TAB PO SCH (08:18)
[2020-09-20] MEDS: Famotidine 20 MG TAB PO SCH ×2 (08:18→20:31)
[2020-09-20] MEDS: Ascorbic Acid 500 mg Chewable Tablet PO SCH (08:18)
[2020-09-20] MEDS: Atorvastatin Calcium 40 MG TAB PO SCH (08:19)
[2020-09-20] MEDS: Zinc Sulfate 220 MG CAP PO SCH (08:19)
[2020-09-20] MEDS: Tamsulosin HCl 0.4 MG CAP PO SCH (08:19)
[2020-09-20] MEDS: Dutasteride 0.5 MG CAP PO SCH (08:19)
[2020-09-20] MEDS: Aspirin 325 MG TAB PO SCH (08:19)
[2020-09-20] MEDS: Lisinopril 5 MG TAB PO SCH (08:19)
[2020-09-20] MEDS: Enoxaparin Sodium 40 MG/0.4 ML SYRINGE SC SCH (08:20)
[2020-09-20] MEDS: Pregabalin 75 MG CAP PO SCH ×2 (08:20→20:30)
[2020-09-20 08:54] LABS: #Eosinphils 0.2 thou/uL (0.0-0.7); #Lymphocytes 0.7 thou/uL (1.20-3.40); #Monocytes 0.6 thou/uL (0.11-0.59); #Neutrophils 6.3 thou/uL (1.40-6.50); %Basophils 0.4 % (0.0-1.0); %Eosinophils 1.9 % (0.0-10.0); %Lymphocytes 9.5 % (21.0-51.0); %Monocytes 7.9 % (0.0-10.0); %Neutrophils 80.4 % (42.0-75.0); Hemoglobin 11.5 g/dL (14.0-18.0); Mean Corpuscular HGB CONC 33.2 g/dL (32.0-36.0); Mean Corpuscular Hemoglobin 31.3 pg (27.0-31.0); Mean Corpuscular Volume 94.1 fL (78.0-98.0); Mean Platelet Volume 8.3 fL (7.4-10.4); Platelet Count 152 thou/uL (130-400); RBC Distribution Width 14.6 % (11.5-14.5); Red Blood Cell (RBC) Count 3.66 mill/uL (4.70-6.10); White Blood Cell (WBC) Count 7.9 thou/uL (4.8-10.8)
[2020-09-20 09:53] LABS: Anion Gap 13 mmol/L (10-20); BUN (Urea Nitrogen) 7 mg/dL (8.4-25.7); Calc. Creatinine Clearance 208 mL/min (70-130); Calcium 7.9 mg/dL (7.8-10.44); Carbon Dioxide 27 mmol/L (23-31); Chloride 102 mmol/L (98-107); Glucose 138 mg/dL (83-110); Potassium 3.9 mmol/L (3.5-5.1); Sodium 138 mmol/L (136-145)
--- NOTE | 2020-09-20 10:48 | PQF ---
CLINICAL DOCUMENTATION CLARIFICATION FORM: Dear Dr. Lubna Dueñas Date / Time: 09/20/20 1025, 09/21/20 Please exercise your independent, professional judgment in responding to the clarification form. Clinical indicators are provided on the bottom of this form for your review. Please check appropriate box(es): [ X] Sepsis due to: UTI Due to: [ X ] INDWELLING ENAMORADO CATHETER [ ] Sepsis Not due to: UTI Due to: [ ] INDWELLING ENAMORADO CATHETER [ ] Sepsis [ ] Septic Shock [ ] Localized infection without sepsis [ ] SIRS due to non-infectious process (please specify etiology) [ ] with organ dysfunction [ ] without organ dysfunction [ ] Other diagnosis [ ] Unable to determine In addition, please specify: Present on Admission (POA): [ X] Yes [ ] No [ ] Unable to determine For continuity of documentation, please document condition throughout progress notes and discharge summary. Thank You. To be completed by CDI/Coding staff for physician review: CLINICAL INDICATORS - SIGNS / SYMPTOMS / LABS / RESULTS AND LOCATION IN MR 09/18 Temp 103.1, 102.7 09/19 Temp 101.4, 102.8 09/15 WBC 14.4 09/16 WBC 16.1 UTI- urine culture is growing citrobacter (2 species) Pseudinomas and Staph. Persistent fever appears non-toxic, this could be related to the COVID infection (PN/Spenser) 09/19 RISK FACTORS / RESULTS AND LOCATION IN MR Covid , catheter associated UTI ( Jagadeeshan/ PN) 09/16 TREATMENTS / RESULTS AND LOCATION IN MR Infectious disease consult ( Carmen) 09/16 Meropenem IV ( 09/16 present) Serial labs ( 09/15 present) Iv Fluids 0.9 NS ( 09/15- present) Thank you! CDS Signature: Mariam Jack RN Phone #: [phone] Date: 09/20/2020 104 This is a permanent part of the Medical Record [facility]
[2020-09-20] MEDS: Polyethylene Glycol 3350 17 GM Packet PO PRN (13:21)
--- NOTE | 2020-09-20 13:50 | PRG ---
DATE OF SERVICE: 09/20/2020 SUBJECTIVE: Mr. Salazar is feeling better. Coughs very infrequently. No dyspnea. Still with Chin catheter. No abdominal pain. No vomiting. He was having fever up to 102.8 and after addition of vancomycin seems to have resolved. OBJECTIVE: VITAL SIGNS: Saturating at 100% on 3 L nasal cannula. Pulse 73. GENERAL: Awake, alert, quadriparesis. LUNGS: Clear. HEART: S1, S2, regular rate. ABDOMEN: Soft, not distended. EXTREMITIES: Peripheral IV access. LABORATORY DATA: White cell count 7.9, hemoglobin 11.5, platelets 152, 80% neutrophils. Creatinine 0.48. Ferritin 712. CRP is 9.19. 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 Flank pain associated with changes in urinalysis and imaging study consistent with pyelonephritis and chronic indwelling Chin catheter. BPH and a positive SARS-CoV2 PCR without significant respiratory tract involvement yet. The final cultures have yielded Citrobacter, two different types, Pseudomonas aeruginosa and MRSA. So, at this point, we will switch him to cefepime plus continue vancomycin and treat for about 2 weeks approximately. Again, he may be a candidate for suprapubic catheter placement. Job ID: [id number]
[2020-09-20] MEDS: Cefepime 2 GM in Sodium Chloride 0.9% 100 ML IVPB SCH (15:23)
--- NOTE | 2020-09-20 17:36 | PDOC.HOSPP ---
- Subjective Encounter Date: 09/20/20 Encounter Time: 17:34 Subjective: Mr. Salazar was seen today in follow-up of UTI and COVID infection. He does not have any new complaints. - Objective Vital Signs & Weight: Vital Signs (12 hours) Temp Pulse Resp BP BP Pulse Ox 09/20/20 16:00 100.9 F H 83 20 145/77 H 98 09/20/20 12:00 99.3 F 73 18 134/69 100 09/20/20 08:19 67 122/69 09/20/20 08:11 99.2 F 67 18 122/69 99 09/20/20 08:00 99 09/20/20 05:50 99.6 F Weight Admit Weight 243 lb 9.6 oz Weight 243 lb 9.773 oz I&O: 09/19/20 09/20/20 09/21/20 06:59 06:59 06:59 Intake Total 3136 2500 Output Total 3650 3150 Balance -514 650 Result Diagrams: 09/20/20 08:27 09/20/20 09:26 Additional Labs: Accuchecks 09/20/20 09/20/20 09/20/20 16:31 11:35 03:53 POC Glucose 100 149 H 129 H 09/19/20 09/19/20 20:03 04:46 POC Glucose 136 H 118 H Hospitalist ROS - Medication Medications: Active Medications Generic Name Dose Route Start Last Admin Trade Name Freq PRN Reason Stop Dose Admin Acetaminophen 1,000 mg 09/15/20 22:39 09/20/20 02:37 Acetaminophen 500 Mg Tab PO 1,000 mg Q6H PRN Administration Mild Pain (1-3) Ascorbic Acid 1,000 mg 09/16/20 09:00 09/20/20 08:18 Ascorbic Acid 500 Mg Chewable Tablet PO 1,000 mg DAILY WARREN Administration Aspirin 325 mg 09/16/20 08:00 09/20/20 08:19 Aspirin 325 Mg Tab PO 325 mg [facility] Administration Atorvastatin Calcium 80 mg 09/16/20 09:00 09/20/20 08:19 Atorvastatin Calcium 40 Mg Tab PO 80 mg DAILY WARREN Administration Cholecalciferol 5,000 units 09/16/20 09:00 09/20/20 08:18 Cholecalciferol 1,000 Units (25 Mcg) Tab PO 5,000 units DAILY WARREN Administration Dutasteride 0.5 mg 09/16/20 09:00 09/20/20 08:19 Dutasteride 0.5 Mg Cap PO 0.5 mg DAILY WARREN Administration Enoxaparin Sodium 40 mg 09/19/20 09:00 09/20/20 08:20 Enoxaparin Sodium 40 Mg/0.4 Ml Syringe SC 40 mg 0900 WARREN Administration Famotidine 20 mg 09/16/20 09:00 09/20/20 08:18 Famotidine 20 Mg Tab PO 20 mg BID WARREN Administration Sodium Chloride 1,000 mls @ 100 mls/hr 09/15/20 22:39 09/20/20 15:23 Normal Saline 0.9% IV 1,000 mls .Q10H WARREN Administration Cefepime HCl 2 gm/ Sodium 100 mls @ 200 mls/hr 09/20/20 14:00 09/20/20 15:23 Chloride IVPB 100 mls 0200,1400 WARREN Administration Lisinopril 5 mg 09/16/20 09:00 09/20/20 08:19 Lisinopril 5 Mg Tab PO 5 mg DAILY WARREN Administration Metoprolol Succinate 50 mg 09/16/20 09:00 09/20/20 16:23 Metoprolol Succinate Xl 50 Mg Tab PO Not Given BID WARREN Mirabegron 50 mg 09/16/20 09:00 09/20/20 08:19 Mirabegron Er 25 Mg Tab PO 50 mg DAILY WARREN Administration Polyethylene Glycol 17 gm 09/19/20 15:25 09/20/20 13:21 Polyethylene Glycol 3350 17 Gm Packet PO 17 gm DAILYPRN PRN Administration Constipation Pregabalin 75 mg 09/16/20 09:00 09/20/20 08:20 Pregabalin 75 Mg Cap PO 75 mg BID WARREN Administration Tamsulosin HCl 0.4 mg 09/16/20 09:00 09/20/20 08:19 Tamsulosin Hcl 0.4 Mg Cap PO 0.4 mg DAILY WARREN Administration Zinc Sulfate 220 mg 09/16/20 09:00 09/20/20 08:19 Zinc Sulfate 220 Mg Cap PO 220 mg DAILY WARREN Administration - Exam Eye: PERRL, anicteric sclera Heart: RRR, no murmur, no gallops, no rubs, normal peripheral pulses Respiratory: CTAB, no wheezes, no rales, no ronchi, normal chest expansion Gastrointestinal: soft, non-tender, non-distended, normal bowel sounds, no palpable masses, no hepatomegaly Extremities: no cyanosis Hosp A/P (1) Urinary retention Code(s): R33.9 - RETENTION OF URINE, UNSPECIFIED Status: Acute (2) COVID-19 virus infection Code(s): U07.1 - COVID-19 Status: Acute (3) UTI (urinary tract infection) Status: Acute Qualifiers: Urinary tract infection type: catheter-associated UTI Indwelling urinary catheter type: indwelling urethral catheter Encounter type: subsequent encounter Qualified Code(s): T83.511D - Infection and inflammatory reaction due to indwelling urethral catheter, subsequent encounter; N39.0 - Urinary tract infection, site not specified (4) CAD (coronary artery disease) Code(s): I25.10 - ATHSCL HEART DISEASE OF [place] CORONARY ARTERY W/O ANG PCTRS Status: Chronic Qualifiers: Coronary Disease-Associated Artery/Lesion type: bypass graft [place] vs. 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 (7) HTN (hypertension) Code(s): I10 - ESSENTIAL (PRIMARY) HYPERTENSION Status: Chronic Qualifiers: Hypertension type: essential hypertension Qualified Code(s): I10 - Essent ial (primary) hypertension - Plan * UTI- ID recommendations noted- He will need 2 weeks of Cefepime and Vancomycin * Will consult Case Management to have this done in long term or Rehab * 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
[2020-09-20] MEDS ORDERED: Metoprolol Tartrate 25 MG TAB PO SCH (19:15)
[2020-09-21] MEDS: Cefepime 2 GM in Sodium Chloride 0.9% 100 ML IVPB SCH ×2 (01:18→14:12)
[2020-09-21] MEDS: Sodium Chloride 0.9% 1,000 ML IV SCH ×2 (04:03→20:48)
[2020-09-21] MEDS: Vancomycin HCl 1.25 GM in Sodium Chloride 0.9% 250 ML 250 ML IVPB SCH ×2 (04:03→15:15)
[2020-09-21] MEDS: Acetaminophen 500 MG TAB PO PRN ×2 (06:21→21:00)
[2020-09-21 08:12] LABS: Hemoglobin 11.7 g/dL (14.0-18.0); Mean Corpuscular Hemoglobin 31.6 pg (27.0-31.0); Mean Corpuscular Volume 95.6 fL (78.0-98.0); Mean Platelet Volume 6.7 fL (7.4-10.4); Platelet Count 140 thou/uL (130-400); RBC Distribution Width 13.9 % (11.5-14.5); Red Blood Cell (RBC) Count 3.72 mill/uL (4.70-6.10); White Blood Cell (WBC) Count 8.4 thou/uL (4.8-10.8)
[2020-09-21 08:23] LABS: Anion Gap 14 mmol/L (10-20); BUN (Urea Nitrogen) 6 mg/dL (8.4-25.7); Calc. Creatinine Clearance 238 mL/min (70-130); Calcium 7.6 mg/dL (7.8-10.44); Carbon Dioxide 24 mmol/L (23-31); Chloride 102 mmol/L (98-107); Glucose 104 mg/dL (83-110); Potassium 3.6 mmol/L (3.5-5.1); Sodium 136 mmol/L (136-145)
[2020-09-21 09:09] LABS: Band 7 % (5-11); Eosinophils 2 % (0-10); Lymphocytes 6 % (21-51); MDiff Complete? YES; Monocytes 4 % (0-10); Neutrophil 81 % (42-75); RBC Morphology Normal
[2020-09-21] MEDS: Dutasteride 0.5 MG CAP PO SCH (09:11)
[2020-09-21] MEDS: Atorvastatin Calcium 40 MG TAB PO SCH (09:11)
[2020-09-21] MEDS: Cholecalciferol 1,000 UNITS (25 MCG) TAB PO SCH (09:12)
[2020-09-21] MEDS: Zinc Sulfate 220 MG CAP PO SCH (09:12)
[2020-09-21] MEDS: Tamsulosin HCl 0.4 MG CAP PO SCH (09:12)
[2020-09-21] MEDS: Famotidine 20 MG TAB PO SCH ×2 (09:12→20:48)
[2020-09-21] MEDS: Pregabalin 75 MG CAP PO SCH ×2 (09:12→20:48)
[2020-09-21] MEDS: Enoxaparin Sodium 40 MG/0.4 ML SYRINGE SC SCH (09:13)
[2020-09-21] MEDS: Aspirin 325 MG TAB PO SCH (09:13)
[2020-09-21] MEDS: Lisinopril 5 MG TAB PO SCH (09:13)
[2020-09-21] MEDS: Ascorbic Acid 500 mg Chewable Tablet PO SCH (12:02)
--- NOTE | 2020-09-21 12:26 | PDOC.HOSPP ---
- Subjective Encounter Date: 09/21/20 Encounter Time: 12:24 Subjective: Mr. Salazar was seen today in follow-up of UTI and COVID infection. He does not have any new complaints. - Objective Vital Signs & Weight: Vital Signs (12 hours) Temp Pulse Resp BP BP Pulse Ox 09/21/20 09:13 72 09/21/20 07:30 99.3 F 72 17 127/70 100 09/21/20 04:00 101.5 F H 91 18 123/75 96 Weight Admit Weight 243 lb 9.6 oz Weight 243 lb 9.773 oz I&O: 09/20/20 09/21/20 09/22/20 06:59 06:59 06:59 Intake Total 2500 4430 Output Total 3159 5418 Balance -650 995 Result Diagrams: 09/21/20 07:53 09/21/20 07:53 Additional Labs: Accuchecks 09/21/20 09/21/20 09/20/20 11:53 06:07 20:28 POC Glucose 147 H 98 147 H 09/20/20 16:31 POC Glucose 100 Hospitalist ROS - Medication Medications: Active Medications Generic Name Dose Route Start Last Admin Trade Name Freq PRN Reason Stop Dose Admin Acetaminophen 1,000 mg 09/15/20 22:39 09/21/20 06:21 Acetaminophen 500 Mg Tab PO 1,000 mg Q6H PRN Administration Mild Pain (1-3) Ascorbic Acid 1,000 mg 09/16/20 09:00 09/21/20 12:02 Ascorbic Acid 500 Mg Chewable Tablet PO 1,000 mg DAILY WARREN Administration Aspirin 325 mg 09/16/20 08:00 09/21/20 09:13 Aspirin 325 Mg Tab PO 325 mg [facility] W[facility] Administration Atorvastatin Calcium 80 mg 09/16/20 09:00 09/21/20 09:11 Atorvastatin Calcium 40 Mg Tab PO 80 mg DAILY WARREN Administration Cholecalciferol 5,000 units 09/16/20 09:00 09/21/20 09:12 Cholecalciferol 1,000 Units (25 Mcg) Tab PO 5,000 units DAILY WARREN Administration Dutasteride 0.5 mg 09/16/20 09:00 09/21/20 09:11 Dutasteride 0.5 Mg Cap PO 0.5 mg DAILY WARREN Administration Enoxaparin Sodium 40 mg 09/19/20 09:00 09/21/20 09:13 Enoxaparin Sodium 40 Mg/0.4 Ml Syringe SC 40 mg 0900 WARREN Administration Famotidine 20 mg 09/16/20 09:00 09/21/20 09:12 Famotidine 20 Mg Tab PO 20 mg BID WARREN Administration Sodium Chloride 1,000 mls @ 100 mls/hr 09/15/20 22:39 09/21/20 04:03 Normal Saline 0.9% IV 1,000 mls .Q10H WARREN Administration Cefepime HCl 2 gm/ Sodium 100 mls @ 200 mls/hr 09/20/20 14:00 09/21/20 01:18 Chloride IVPB 100 mls 0200,1400 WARREN Administration Vancomycin HCl 1.25 gm/ Sodium 250 mls @ 166.67 mls/hr 09/21/20 04:00 04:03 Chloride IVPB 250 mls 0400,1600 WARREN Administration Lisinopril 5 mg 09/16/20 09:00 09/21/20 09:13 Lisinopril 5 Mg Tab PO 5 mg DAILY WARREN Administration Metoprolol Succinate 50 mg 09/21/20 09:00 09/21/20 09:11 Metoprolol Succinate Xl 50 Mg Tab PO 50 mg BID WARREN Administration Mirabegron 50 mg 09/16/20 09:00 09/21/20 09:12 Mirabegron Er 25 Mg Tab PO 50 mg DAILY WARREN Administration Polyethylene Glycol 17 gm 09/19/20 15:25 09/20/20 13:21 Polyethylene Glycol 3350 17 Gm Packet PO 17 gm DAILYPRN PRN Administration Constipation Pregabalin 75 mg 09/16/20 09:00 09/21/20 09:12 Pregabalin 75 Mg Cap PO 75 mg BID WARREN Administration Tamsulosin HCl 0.4 mg 09/16/20 09:00 09/21/20 09:12 Tamsulosin Hcl 0.4 Mg Cap PO 0.4 mg DAILY WARREN Administration Zinc Sulfate 220 mg 09/16/20 09:00 09/21/20 09:12 Zinc Sulfate 220 Mg Cap PO 220 mg DAILY WARREN Administration - Exam Eye: PERRL, anicteric sclera Heart: RRR, no murmur, no gallops, no rubs, normal peripheral pulses Respiratory: CTAB, no wheezes, no rales, no ronchi, normal chest expansion, no tachypnea Gastrointestinal: soft, non-distended, normal bowel sounds Extremities: no edema Hosp A/P (1) Urinary retention Code(s): R33.9 - RETENTION OF URINE, UNSPECIFIED Status: Acute (2) COVID-19 virus infection Code(s): U07.1 - COVID-19 Status: Acute (3) UTI (urinary tract infection) Status: Acute Qualifiers: Urinary tract infection type: catheter-associated UTI Indwelling urinary catheter type: indwelling urethral catheter Encounter type: subsequent encounter Qualified Code(s): T83.511D - Infection and inflammatory reaction due to indwelling urethral catheter, subsequent encounter; N39.0 - Urinary tract infection, site not specified (4) CAD (coronary artery disease) Code(s): I25.10 - ATHSCL HEART DISEASE OF [place] CORONARY ARTERY W/O ANG PCTRS Status: Chronic Qualifiers: Coronary Disease-Associated Artery/Lesion type: bypass graft [place] vs. 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 (7) HTN (hypertension) Code(s): I10 - ESSENTIAL (PRIMARY) HYPERTENSION Status: Chronic Qualifiers: Hypertension type: essential hypertension Qualified Code(s): I10 - Essential (primary) hypertension - Plan * UTI- ID recommendations noted- He will need 2 weeks of Cefepime and Vancomycin- will order PICC line * Longterm evaluation has been placed * 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
--- NOTE | 2020-09-21 14:07 | SPC ---
Left upper extremity PICC placement fluoroscopic guided HISTORY: COVID pneumonia. FINDINGS: After explaining the procedure and answering all questions, the left arm and external porti on of the left upper arm mid line were prepped and draped in usual sterile fashion. Sterile technique, buffered local anesthesia, and fluoroscopic guidance were used to carefully exchan ge the midline catheter for a 5 [place] single lumen PICC. Tip placed at the cavoatrial junction. Catheter was flushed and secured externally. Patient tolerated the procedure well and was returned in unchanged condition. Fluoroscopy time 0 seconds. IMPRESSION : Left upper extremity PICC is ready for use.
[2020-09-22] MEDS: Cefepime 2 GM in Sodium Chloride 0.9% 100 ML IVPB SCH ×2 (00:49→14:10)
[2020-09-22] MEDS: Vancomycin HCl 1.25 GM in Sodium Chloride 0.9% 250 ML 250 ML IVPB SCH ×2 (04:12→16:28)
[2020-09-22] MEDS: Sodium Chloride 0.9% 1,000 ML IV SCH ×2 (04:40→14:10)
[2020-09-22] MEDS: Enoxaparin Sodium 40 MG/0.4 ML SYRINGE SC SCH (08:14)
[2020-09-22] MEDS: Famotidine 20 MG TAB PO SCH ×2 (08:14→19:05)
[2020-09-22] MEDS: Pregabalin 75 MG CAP PO SCH ×2 (08:15→19:05)
[2020-09-22] MEDS: Aspirin 325 MG TAB PO SCH (08:16)
[2020-09-22] MEDS: Ascorbic Acid 500 mg Chewable Tablet PO SCH (08:16)
[2020-09-22] MEDS: Lisinopril 5 MG TAB PO SCH (08:16)
[2020-09-22] MEDS: Cholecalciferol 1,000 UNITS (25 MCG) TAB PO SCH (08:16)
[2020-09-22] MEDS: Atorvastatin Calcium 40 MG TAB PO SCH (08:16)
[2020-09-22] MEDS: Tamsulosin HCl 0.4 MG CAP PO SCH (08:16)
[2020-09-22] MEDS: Dutasteride 0.5 MG CAP PO SCH (08:17)
[2020-09-22] MEDS: Zinc Sulfate 220 MG CAP PO SCH (08:17)
--- NOTE | 2020-09-22 15:09 | PDOC.HOSPP ---
- Subjective Encounter Date: 09/22/20 Encounter Time: 15:08 Subjective: Mr. Salazar was seen today in follow-up of UTI and COVID infection. He does not have any complaints. He does not note any dyspnea or cough, no GI symptoms. - Objective Vital Signs & Weight: Vital Signs (12 hours) Temp Pulse Resp BP BP Pulse Ox 09/22/20 08:16 72 155/87 H 09/22/20 08:00 98.2 F 72 18 155/87 H 92 L Weight Admit Weight 243 lb 9.6 oz Weight 243 lb 9.773 oz I&O: 09/21/20 09/22/20 09/23/20 06:59 06:59 06:59 Intake Total 4481 7388 Output Total 8903 3087 [facility] -[phone] Result Diagrams: 09/21/20 07:53 09/21/20 07:53 Additional Labs: Accuchecks 09/22/20 09/22/20 09/21/20 11:13 04:13 20:56 POC Glucose 129 H 125 H 116 H 09/21/20 15:31 POC Glucose 109 H Hospitalist ROS - Medication Medications: Active Medications Generic Name Dose Route Start Last Admin Trade Name Freq PRN Reason Stop Dose Admin Acetaminophen 1,000 mg 09/15/20 22:39 09/21/20 21:00 Acetaminophen 500 Mg Tab PO 1,000 mg Q6H PRN Administration Mild Pain (1-3) Ascorbic Acid 1,000 mg 09/16/20 09:00 09/22/20 08:16 Ascorbic Acid 500 Mg Chewable Tablet PO 1,000 mg DAILY WARREN Administration Aspirin 325 mg 09/16/20 08:00 09/22/20 08:16 Aspirin 325 Mg Tab PO 325 mg [facility] W[facility]EN Administration Atorvastatin Calcium 80 mg 09/16/20 09:00 09/22/20 08:16 Atorvastatin Calcium 40 Mg Tab PO 80 mg DAILY WARREN Administration Cholecalciferol 5,000 units 09/16/20 09:00 09/22/20 08:16 Cholecalciferol 1,000 Units (25 Mcg) Tab PO 5,000 units DAILY WARREN Administration Dutasteride 0.5 mg 09/16/20 09:00 09/22/20 08:17 Dutasteride 0.5 Mg Cap PO 0.5 mg DAILY WARREN Administration Enoxaparin Sodium 40 mg 09/19/20 09:00 09/22/20 08:14 Enoxaparin Sodium 40 Mg/0.4 Ml Syringe SC 40 mg 0900 WARREN Administration Famotidine 20 mg 09/16/20 09:00 09/22/20 08:14 Famotidine 20 Mg Tab PO 20 mg BID WARREN Administration Sodium Chloride 1,000 mls @ 100 mls/hr 09/15/20 22:39 09/22/20 14:10 Normal Saline 0.9% IV 1,000 mls .Q10H WARREN Administration Cefepime HCl 2 gm/ Sodium 100 mls @ 200 mls/hr 09/20/20 14:00 09/22/20 14:10 Chloride IVPB 100 mls 0200,1400 WARREN Administration Vancomycin HCl 1.25 gm/ Sodium 250 mls @ 166.67 mls/hr 09/21/20 04:00 09/22/20 04:12 Chloride IVPB 250 mls 0400,1600 WARREN Administration Lisinopril 5 mg 09/16/20 09:00 09/22/20 08:16 Lisinopril 5 Mg Tab PO 5 mg DAILY WARREN Administration Metoprolol Succinate 50 mg 09/21/20 09:00 09/22/20 08:15 Metoprolol Succinate Xl 50 Mg Tab PO 50 mg BID WARREN Administration Mirabegron 50 mg 09/16/20 09:00 09/22/20 08:15 Mirabegron Er 25 Mg Tab PO 50 mg DAILY WARREN Administration Polyethylene Glycol 17 gm 09/19/20 15:25 09/20/20 13:21 Polyethylene Glycol 3350 17 Gm Packet PO 17 gm DAILYPRN PRN Administration Constipation Pregabalin 75 mg 09/16/20 09:00 09/22/20 08:15 Pregabalin 75 Mg Cap PO 75 mg BID WARREN Administration Tamsulosin HCl 0.4 mg 09/16/20 09:00 09/22/20 08:16 Tamsulosin Hcl 0.4 Mg Cap PO 0.4 mg DAILY WARREN Administration Zinc Sulfate 220 mg 09/16/20 09:00 09/22/20 08:17 Zinc Sulfate 220 Mg Cap PO 220 mg DAILY WARREN Administration - Exam Eye: PERRL, anicteric sclera Heart: RRR, no murmur, no gallops, no rubs, normal peripheral pulses Respiratory: CTAB, no wheezes, no rales, no ronchi, normal chest expansion, no tachypnea Gastrointestinal: soft, non-tender, non-distended Extremities: no cyanosis, no edema Hosp A/P (1) Urinary retention Code(s): R33.9 - RETENTION OF URINE, UNSPECIFIED Status: Acute (2) COVID-19 virus infection Code(s): U07.1 - COVID-19 Status: Acute (3) UTI (urinary tract infection) Status: Acute Qualifiers: Urinary tract infection type: catheter-associated UTI Indwelling urinary catheter type: indwelling urethral catheter Encounter type: subsequent encounter Qualified Code(s): T83.511D - Infection and inflammatory reaction due to indwelling urethral catheter, subsequent encounter; N39.0 - Urinary tract infection, site not specified (4) CAD (coronary artery disease) Code(s): I25.10 - ATHSCL HEART DISEASE OF [place] CORONARY ARTERY W/O ANG PCTRS Status: Chronic Qualifiers: Coronary Disease-Associated Artery/Lesion type: bypass graft [place] vs. 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 Status: Chronic (7) HTN (hypertension) Code(s): I10 - ESSENTIAL (PRIMARY) HYPERTENSION Status: Chronic Qualifiers: Hypertension type: essential hypertension Qualified Code(s): I10 - Essential (primary) hypertension - Plan * UTI- ID recommendations noted- He will need 2 weeks of Cefepime and Vancomycin- PICC line has been placed * 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
[2020-09-22 15:37] LABS: Vancomycin, Trough 17.5 ug/mL
[2020-09-22] MEDS: Acetaminophen 500 MG TAB PO PRN (16:34)
[2020-09-23] MEDS: Cefepime 2 GM in Sodium Chloride 0.9% 100 ML IVPB SCH ×2 (01:32→12:47)
[2020-09-23] MEDS: Sodium Chloride 0.9% 1,000 ML IV SCH ×4 (01:34→20:08)
[2020-09-23] MEDS: Vancomycin HCl 1.25 GM in Sodium Chloride 0.9% 250 ML 250 ML IVPB SCH ×2 (03:11→16:19)
[2020-09-23] MEDS: Atorvastatin Calcium 40 MG TAB PO SCH (07:36)
[2020-09-23] MEDS: Aspirin 325 MG TAB PO SCH (07:36)
[2020-09-23] MEDS: Ascorbic Acid 500 mg Chewable Tablet PO SCH (07:36)
[2020-09-23] MEDS: Dutasteride 0.5 MG CAP PO SCH (07:36)
[2020-09-23] MEDS: Famotidine 20 MG TAB PO SCH ×2 (07:36→20:51)
[2020-09-23] MEDS: Tamsulosin HCl 0.4 MG CAP PO SCH (07:37)
[2020-09-23] MEDS: Cholecalciferol 1,000 UNITS (25 MCG) TAB PO SCH (07:37)
[2020-09-23] MEDS: Zinc Sulfate 220 MG CAP PO SCH (07:37)
[2020-09-23] MEDS: Enoxaparin Sodium 40 MG/0.4 ML SYRINGE SC SCH (07:38)
[2020-09-23] MEDS: Pregabalin 75 MG CAP PO SCH ×2 (07:38→20:51)
[2020-09-23] MEDS: Lisinopril 5 MG TAB PO SCH (07:43)
[2020-09-23] MEDS: Acetaminophen 500 MG TAB PO PRN ×2 (11:22→16:20)
[2020-09-24] MEDS: Cefepime 2 GM in Sodium Chloride 0.9% 100 ML IVPB SCH ×2 (02:47→13:23)
[2020-09-24] MEDS: Vancomycin HCl 1.25 GM in Sodium Chloride 0.9% 250 ML 250 ML IVPB SCH ×2 (04:37→18:16)
[2020-09-24] MEDS: Sodium Chloride 0.9% 1,000 ML IV SCH ×2 (06:36→17:43)
--- NOTE | 2020-09-24 07:45 | PDOC.HOSPP ---
- Subjective Encounter Date: 09/23/20 Subjective: patient reports she is doing generally well. He had some discomfort with the change out of his Chin catheter today. Other than that he is feeling pretty well. - Objective Vital Signs & Weight: Vital Signs (12 hours) Temp Pulse Resp BP Pulse Ox 09/24/20 04:00 97.8 F 67 18 142/74 H 96 09/24/20 00:00 97.7 F 66 18 117/65 95 09/23/20 19:53 96.8 F L 60 18 120/59 L 95 Weight Admit Weight 243 lb 9.6 oz Weight 243 lb 9.773 oz I&O: 09/23/20 09/24/20 09/25/20 06:59 06:59 06:59 Intake Total 1700 2270 Output Total 900 3510 Balance 800 -1240 Result Diagrams: 09/21/20 07:53 09/21/20 07:53 Additional Labs: Accuchecks 09/24/20 09/23/20 09/23/20 05:14 22:43 15:30 POC Glucose 91 86 129 H 09/23/20 11:16 POC Glucose 127 H Hospitalist ROS - Medication Medications: Active Medications Generic Name Dose Route Start Last Admin Trade Name Freq PRN Reason Stop Dose Admin Acetaminophen 1,000 mg 09/15/20 22:39 09/23/20 16:20 Acetaminophen 500 Mg Tab PO 1,000 mg Q6H PRN Administration Mild Pain (1-3) Ascorbic Acid 1,000 mg 09/16/20 09:00 09/23/20 07:36 Ascorbic Acid 500 Mg Chewable Tablet PO 1,000 mg DAILY WARREN Administration Aspirin 325 mg 09/16/20 08:00 09/23/20 07:36 Aspirin 325 Mg Tab PO 325 mg QA- WARREN Administration Atorvastatin Calcium 80 mg 09/16/20 09:00 09/23/20 07:36 Atorvastatin Calcium 40 Mg Tab PO 80 mg DAILY WARREN Administration Cholecalciferol 5,000 units 09/16/20 09:00 09/23/20 07:37 Cholecalciferol 1,000 Units (25 Mcg) Tab PO 5,000 units DAILY WARREN Administration Dutasteride 0.5 mg 09/16/20 09:00 09/23/20 07:36 Dutasteride 0.5 Mg Cap PO 0.5 mg DAILY WARREN Administration Enoxaparin Sodium 40 mg 09/19/20 09:00 09/23/20 07:38 Enoxaparin Sodium 40 Mg/0.4 Ml Syringe SC 40 mg 09 WARREN Administration Famotidine 20 mg 09/16/20 09:00 09/23/20 20:51 Famotidine 20 Mg Tab PO 20 mg BID WARREN Administration Sodium Chloride 1,000 mls @ 100 mls/hr 09/15/20 22:39 09/24/20 06:36 Normal Saline 0.9% IV 1,000 mls .Q10H WARREN Administration Cefepime HCl 2 gm/ Sodium 100 mls @ 200 mls/hr 09/20/20 14:00 09/24/20 02:47 Chloride IVPB 100 mls 0200,1400 [facility]EN Administration Vancomycin HCl 1.25 gm/ Sodium 250 mls @ 166.67 mls/hr 09/21/20 04:00 09/24/20 04:37 Chloride IVPB 250 mls 0400,1600 [facility]EN Administration Lisinopril 5 mg 09/16/20 09:00 09/23/20 07:43 Lisinopril 5 Mg Tab PO 5 mg DAILY WARREN Administration Metoprolol Succinate 50 mg 09/21/20 09:00 09/23/20 20:51 Metoprolol Succinate Xl 50 Mg Tab PO 50 mg BID WARREN Administration Mirabegron 50 mg 09/16/20 09:00 09/23/20 07:36 Mirabegron Er 25 Mg Tab PO 50 mg DAILY [facility]ARR[facility] Administration Polyethylene Glycol 17 gm 09/19/20 15:25 09/20/20 13:21 Polyethylene Glycol 3350 17 Gm Packet PO 17 gm DAILYPRN PRN Administration Constipation Pregabalin 75 mg 09/16/20 09:00 09/23/20 20:51 Pregabalin 75 Mg Cap PO 75 mg BID WARREN Administration Tamsulosin HCl 0.4 mg 09/16/20 09:00 09/23/20 07:37 Tamsulosin Hcl 0.4 Mg Cap PO 0.4 mg DAILY WARREN Administration Zinc Sulfate 220 mg 09/16/20 09:00 09/23/20 07:37 Zinc Sulfate 220 Mg Cap PO 220 mg DAILY WARREN Administration - Exam General Appearance: NAD, awake alert Heart: RRR, no murmur, no gallops, no rubs, normal peripheral pulses Gastrointestinal: soft, non-tender, non-distended, normal bowel sounds Extremities: no cyanosis, no clubbing, no edema Skin: normal turgor Musculoskeletal: generalized weakness, diffuse muscle atrophy Psychiatric: normal affect, normal behavior, A&O x 3 Hosp A/P (1) UTI (urinary tract infection) Status: Acute Qualifiers: Urinary tract infection type: catheter-associated UTI Indwelling urinary catheter type: indwelling urethral catheter Encounter type: subsequent encounter Qualified Code(s): T83.511D - Infection and inflammatory reaction due to indwelling urethral catheter, subsequent encounter; N39.0 - Urinary tract infection, site not specified (2) Neurogenic bladder Code(s): N31.9 - NEUROMUSCULAR DYSFUNCTION OF BLADDER, UNSPECIFIED Status: Acute (3) COVID-19 virus infection Code(s): U07.1 - COVID-19 Status: Acute (4) CAD (coronary artery disease) Code(s): I25.10 - ATHSCL HEART DISEASE OF [place] CORONARY ARTERY W/O ANG PCTRS Status: Chronic Qualifiers: Coronary Disease-Associated Artery/Lesion type: bypass graft [place] vs. transplanted heart: [place] heart Associated angina: without angina Qualified Code(s): I25.810 - Atherosclerosis of coronary artery bypass graft(s) without an zia pectoris (5) DM2 (diabetes mellitus, type 2) Status: Chronic Qualifiers: Diabetes mellitus exterminator helper termite insulin use: without nursing home use (6) GBS (Guillain [place] syndrome) Code(s): G61.0 - GUILLAIN-BARRE SYNDROME Status: Chronic (7) HLD (hyperlipidemia) Code(s): E78.5 - HYPERLIPIDEMIA, UNSPECIFIED Status: Chronic (8) HTN (hypertension) Code(s): I10 - ESSENTIAL (PRIMARY) HYPERTENSION Status: Chronic Qualifiers: Hypertension type: essential hypertension Qualified Code(s): I10 - Essential (primary) hypertension - Plan UTI: Polymicrobial. He has been evaluated by ID and the plan is to continue a 2 week course of cefepime and vancomycin. PICC line is in place. He will likely be going to a skilled facility to complete this course. History of Adam Wilburn syndrome with functional quadriplegia: This also has resulted in a neurogenic bladder requiring chronic Chin catheter. Patient was due for an exchange and that was accomplished today. Code 19 and viral infection: Patient appears to be generally asymptomatic. Lung exam is normal. Diabetes mellitus: Stable. adequately controlled. Hypertension: Stable. CAD: Stable, asymptomatic.
[2020-09-24] MEDS: Ascorbic Acid 500 mg Chewable Tablet PO SCH (09:14)
[2020-09-24] MEDS: Aspirin 325 MG TAB PO SCH (09:14)
[2020-09-24] MEDS: Zinc Sulfate 220 MG CAP PO SCH (09:14)
[2020-09-24] MEDS: Famotidine 20 MG TAB PO SCH ×2 (09:14→20:13)
[2020-09-24] MEDS: Cholecalciferol 1,000 UNITS (25 MCG) TAB PO SCH (09:14)
[2020-09-24] MEDS: Tamsulosin HCl 0.4 MG CAP PO SCH (09:14)
[2020-09-24] MEDS: Atorvastatin Calcium 40 MG TAB PO SCH (09:14)
[2020-09-24] MEDS: Pregabalin 75 MG CAP PO SCH ×2 (09:15→20:13)
[2020-09-24] MEDS: Lisinopril 5 MG TAB PO SCH (09:15)
[2020-09-24] MEDS: Dutasteride 0.5 MG CAP PO SCH (09:15)
[2020-09-24] MEDS: Enoxaparin Sodium 40 MG/0.4 ML SYRINGE SC SCH (09:16)
--- NOTE | 2020-09-24 13:24 | PDOC.HOSPP ---
- Subjective Encounter Date: 09/24/20 Encounter Time: 10:35 Subjective: Patient seen this morning. He wants to know how long he needs to stay in long-term facility to complete his antibiotics. DC'd IV fluid - Objective Vital Signs & Weight: Vital Signs (12 hours) Temp Pulse Resp BP BP Pulse Ox 09/24/20 09:15 67 09/24/20 09:00 97.6 F 74 18 137/75 94 L 09/24/20 04:00 97.8 F 67 18 142/74 H 96 Weight Admit Weight 243 lb 9.6 oz Weight 243 lb 9.773 oz I&O: 09/23/20 09/24/20 09/25/20 06:59 06:59 06:59 Intake Total 1700 2270 Output Total 900 3510 Balance 800 -1240 Result Diagrams: 09/21/20 07:53 09/21/20 07:53 Additional Labs: Accuchecks 09/24/20 09/24/20 09/23/20 10:41 05:14 22:43 POC Glucose 121 H 91 86 09/23/20 15:30 POC Glucose 129 H Hospitalist ROS - Medication Medications: Active Medications Generic Name Dose Route Start Last Admin Trade Name Freq PRN Reason Stop Dose Admin Acetaminophen 1,000 mg 09/15/20 22:39 09/23/20 16:20 Acetaminophen 500 Mg Tab PO 1,000 mg Q6H PRN Administration Mild Pain (1-3) Ascorbic Acid 1,000 mg 09/16/20 09:00 09/24/20 09:14 Ascorbic Acid 500 Mg Chewable Tablet PO 1,000 mg DAILY WARREN Administration Aspirin 325 mg 09/16/20 08:00 09/24/20 09:14 Aspirin 325 Mg Tab PO 325 mg [facility] Administration Atorvastatin Calcium 80 mg 09/16/20 09:00 09/24/20 09:14 Atorvastatin Calcium 40 Mg Tab PO 80 mg DAILY WARREN Administration Cholecalciferol 5,000 units 09/16/20 09:00 09/24/20 09:14 Cholecalciferol 1,000 Units (25 Mcg) Tab PO 5,000 units DAILY WARREN Administration Dutasteride 0.5 mg 09/16/20 09:00 09/24/20 09:15 Dutasteride 0.5 Mg Cap PO 0.5 mg DAILY [facility]EN Administration Enoxaparin Sodium 40 mg 09/19/20 09:00 09/24/20 09:16 Enoxaparin Sodium 40 Mg/0.4 Ml Syringe SC 40 mg 0900 WARREN Administration Famotidine 20 mg 09/16/20 09:00 09/24/20 09:14 Famotidine 20 Mg Tab PO 20 mg BID WARREN Administration Sodium Chloride 1,000 mls @ 100 mls/hr 09/15/20 22:39 09/24/20 06:36 Normal Saline 0.9% IV 1,000 mls .Q10H WARREN Administration Cefepime HCl 2 gm/ Sodium 100 mls @ 200 mls/hr 09/20/20 14:00 09/24/20 02:47 Chloride IVPB 100 mls 0200,1400 [facility]EN Administration Vancomycin HCl 1.25 gm/ Sodium 250 mls @ 166.67 mls/hr 09/21/20 04:00 09/24/20 04:37 Chloride IVPB 250 mls 0400,1600 [facility]EN Administration Lisinopril 5 mg 09/16/20 09:00 09/24/20 09:15 Lisinopril 5 Mg Tab PO 5 mg DAILY [facility]EN Administration Metoprolol Succinate 50 mg 09/21/20 09:00 09/24/20 09:15 Metoprolol Succinate Xl 50 Mg Tab PO 50 mg BID WARREN Administration Mirabegron 50 mg 09/16/20 09:00 09/24/20 09:15 Mirabegron Er 25 Mg Tab PO 50 mg DAILY [facility]EN Administration Polyethylene Glycol 17 gm 09/19/20 15:25 09/20/20 13:21 Polyethylene Glycol 3350 17 Gm Packet PO 17 gm DAILYPRN PRN Administration Constipation Pregabalin 75 mg 09/16/20 09:00 09/24/20 09:15 Pregabalin 75 Mg Cap PO 75 mg BID WARREN Administration Tamsulosin HCl 0.4 mg 09/16/20 09:00 09/24/20 09:14 Tamsulosin Hcl 0.4 Mg Cap PO 0.4 mg DAILY AWRREN Administration Zinc Sulfate 220 mg 09/16/20 09:00 09/24/20 09:14 Zinc Sulfate 220 Mg Cap PO 220 mg DAILY WARREN Administration - Exam General Appearance: NAD, awake alert General - other findings: Functional quadriplegia Eye: PERRL ENT: normocephalic atraumatic Neck: supple Respiratory: normal chest expansion Neurological: cranial nerve grossly intact, no focal deficits Psychiatric: normal affect, normal behavior, A&O x 3 Hosp A/P - Plan (1) UTI (urinary tract infection) Status: Acute Qualifiers: Urinary tract infection type: catheter-associated UTI Indwelling urinary catheter type: indwelling urethral catheter Encounter type: subsequent encounter Qualified Code(s): T83.511D - Infection and inflammatory reaction due to indwelling urethral catheter, subsequent encounter; N39.0 - Urinary tract infection, site not specified (2) Neurogenic bladder Code(s): N31.9 - NEUROMUSCULAR DYSFUNCTION OF BLADDER, UNSPECIFIED Status: Acute (3) COVID-19 virus infection Code(s): U07.1 - COVID-19 Status: Acute (4) CAD (coronary artery disease) Code(s): I25.10 - ATHSCL HEART DISEASE OF [place] CORONARY ARTERY W/O ANG PCTRS Status: Chronic Qualifiers: Coronary Disease-Associated Artery/Lesion type: bypass graft [place] vs. transplanted heart: [place] heart Associated angina: without angina Qualified Code(s): I25.810 - Atherosclerosis of coronary artery bypass graft(s) without angina pectoris (5) DM2 (diabetes mellitus, type 2) Status: Chronic Qualifiers: Diabetes mellitus intermodal truck driver insulin use: without half-way use (6) GBS (Guillain [place] syndrome) Code(s): G61.0 - GUILLAIN-BARRE SYNDROME Status: Chronic (7) HLD (hyperlipidemia) Code(s): E78.5 - HYPERLIPIDEMIA, UNSPECIFIED Status: Chronic (8) HTN (hypertension) Code(s): I10 - ESSENTIAL (PRIMARY) HYPERTENSION Status: Chronic Qualifiers: Hypertension type: essential hypertension Qualified Code(s): I10 - Essential (primary) hypertension - Plan UTI: Polymicrobial. -continue a 2 week course of cefepime and vancomycin. Status post PICC -long-term facility to complete this course. History of Adam Wilburn syndrome with functional quadriplegia: neurogenic bladder on chronic Chin catheter. Code 19 and viral infection -Stable satting 94% in room air. Diabetes mellitus: Stable. adequately controlled. Hypertension: Stable. CAD: Stable, asymptomatic.
[2020-09-25] MEDS: Cefepime 2 GM in Sodium Chloride 0.9% 100 ML IVPB SCH ×2 (01:03→15:27)
[2020-09-25] MEDS: Vancomycin HCl 1.25 GM in Sodium Chloride 0.9% 250 ML 250 ML IVPB SCH (04:51)
[2020-09-25] MEDS: Famotidine 20 MG TAB PO SCH ×2 (08:52→20:08)
[2020-09-25] MEDS: Atorvastatin Calcium 40 MG TAB PO SCH (08:52)
[2020-09-25] MEDS: Cholecalciferol 1,000 UNITS (25 MCG) TAB PO SCH (08:53)
[2020-09-25] MEDS: Pregabalin 75 MG CAP PO SCH ×2 (08:53→20:07)
[2020-09-25] MEDS: Aspirin 325 MG TAB PO SCH (08:53)
[2020-09-25] MEDS: Enoxaparin Sodium 40 MG/0.4 ML SYRINGE SC SCH (08:54)
[2020-09-25] MEDS: Ascorbic Acid 500 mg Chewable Tablet PO SCH (08:54)
[2020-09-25] MEDS: Tamsulosin HCl 0.4 MG CAP PO SCH (08:54)
[2020-09-25] MEDS: Lisinopril 5 MG TAB PO SCH (08:54)
[2020-09-25] MEDS: Zinc Sulfate 220 MG CAP PO SCH (08:54)
[2020-09-25] MEDS: Dutasteride 0.5 MG CAP PO SCH (08:54)
--- NOTE | 2020-09-25 12:49 | PDOC.HOSPP ---
- Subjective Encounter Date: 09/25/20 Encounter Time: 09:30 Subjective: Patient appears well he is alert oriented, we discussed about his home situation his and his son able to help him as needed. We will also look for home health. And he prefers to go home if possible. - Objective Vital Signs & Weight: Vital Signs (12 hours) Temp Pulse Resp BP BP Pulse Ox 09/25/20 08:54 61 113/70 09/25/20 08:30 92 L 09/25/20 08:00 92 L 09/25/20 07:51 98.3 F 61 18 113/70 91 L 09/25/20 04:00 98.1 F 63 18 147/77 H 97 Weight Admit Weight 243 lb 9.6 oz Weight 243 lb 9.773 oz I&O: 09/24/20 09/25/20 09/26/20 06:59 06:59 06:59 Intake Total 2270 1390 Output Total 3510 2225 Balance -5707 -943 Result Diagrams: 09/21/20 07:53 09/21/20 07:53 Additional Labs: Accuchecks 09/25/20 09/25/20 09/24/20 12:00 05:58 20:26 POC Glucose 136 H 106 H 135 H Hospitalist ROS - Medication Medications: Active Medications Generic Name Dose Route Start Last Admin Trade Name Freq PRN Reason Stop Dose Admin Acetaminophen 1,000 mg 09/15/20 22:39 09/23/20 16:20 Acetaminophen 500 Mg Tab PO 1,000 mg Q6H PRN Administration Mild Pain (1-3) Ascorbic Acid 1,000 mg 09/16/20 09:00 09/25/20 08:54 Ascorbic Acid 500 Mg Chewable Tablet PO 1,000 mg DAILY WARREN Administration Aspirin 325 mg 09/16/20 08:00 09/25/20 08:53 Aspirin 325 Mg Tab PO 325 mg QA- WARREN Administration Atorvastatin Calcium 80 mg 09/16/20 09:00 09/25/20 08:52 Atorvastatin Calcium 40 Mg Tab PO 80 mg DAILY [facility]ARREN Administration Cholecalciferol 5,000 units 09/16/20 09:00 09/25/20 08:53 Cholecalciferol 1,000 Units (25 Mcg) Tab PO 5,000 units DAILY WARREN Administration Dutasteride 0.5 mg 09/16/20 09:00 09/25/20 08:54 Dutasteride 0.5 Mg Cap PO 0.5 mg DAILY [facility] Administration Enoxaparin Sodium 40 mg 09/19/20 09:00 09/25/20 08:54 Enoxaparin Sodium 40 Mg/0.4 Ml Syringe SC 40 mg 0900 WARREN Administration Famotidine 20 mg 09/16/20 09:00 09/25/20 08:52 Famotidine 20 Mg Tab PO 20 mg BID WARREN Administration Cefepime HCl 2 gm/ Sodium 100 mls @ 200 mls/hr 09/20/20 14:00 09/25/20 01:03 Chloride IVPB 100 mls 0200,1400 W[facility]EN Administration Vancomycin HCl 1.25 gm/ Sodium 250 mls @ 166.67 mls/hr 09/21/20 04:00 09/25/20 04:51 Chloride IVPB 250 mls 0400,1600 W[facility]EN Administration Lisinopril 5 mg 09/16/20 09:00 09/25/20 08:54 Lisinopril 5 Mg Tab PO Not Given DAILY WARREN Metoprolol Succinate 50 mg 09/21/20 09:00 09/25/20 08:55 Metoprolol Succinate Xl 50 Mg Tab PO Not Given BID WARREN Mirabegron 50 mg 09/16/20 09:00 09/25/20 08:52 Mirabegron Er 25 Mg Tab PO 50 mg DAILY [facility] Administration Polyethylene Glycol 17 gm 09/19/20 15:25 09/20/20 13:21 Polyethylene Glycol 3350 17 Gm Packet PO 17 gm DAILYPRN PRN Administration Constipation Pregabalin 75 mg 09/16/20 09:00 09/25/20 08:53 Pregabalin 75 Mg Cap PO 75 mg BID WARREN Administration Tamsulosin HCl 0.4 mg 09/16/20 09:00 09/25/20 08:54 Tamsulosin Hcl 0.4 Mg Cap PO 0.4 mg DAILY [facility] Administration Zinc Sulfate 220 mg 09/16/20 09:00 09/25/20 08:54 Zinc Sulfate 220 Mg Cap PO 220 mg DAILY [facility]ARREN Administration - Exam General Appearance: NAD, awake alert Eye: PERRL, scleral icterus ENT: normocephalic atraumatic Neck: supple Heart: RRR, normal peripheral pulses Respiratory: CTAB, normal chest expansion Gastrointestinal: soft, normal bowel sounds Neurological: cranial nerve grossly intact, no focal deficits Psychiatric: A&O x 3 Hosp A/P - Plan (1) UTI (urinary tract infection) Status: Acute Qualifiers: Urinary tract infection type: catheter-associated UTI Indwelling urinary catheter type: indwelling urethral catheter Encounter type: subsequent encounter Qualified Code(s): T83.511D - Infection and inflammatory reaction due to indwelling urethral catheter, subsequent encounter; N39.0 - Urinary tract infection, site not specified (2) Neurogenic bladder Code(s): N31.9 - NEUROMUSCULAR DYSFUNCTION OF BLADDER, UNSPECIFIED Status: Acute (3) COVID-19 virus infection Code(s): U07.1 - COVID-19 Status: Acute (4) CAD (coronary artery disease) Code(s): I25.10 - ATHSCL HEART DISEASE OF [place] CORONARY ARTERY W/O ANG PCTRS Status: Chronic Qualifiers: Coronary Disease-Associated Artery/Lesion type: bypass graft [place] vs. transplanted heart: [place] heart Associated angina: without angina Qualified Code(s): I25.810 - Atherosclerosis of coronary artery bypass graft(s) without angina pectoris (5) DM2 (diabetes mellitus, type 2) Status: Chronic Qualifiers: Diabetes mellitus shelter insulin use: without terminal press operator use (6) GBS (Guillain [place] syndrome) Code(s): G61.0 - GUILLAIN-BARRE SYNDROME Status: Chronic (7) HLD (hyperlipidemia) Code(s): E78.5 - HYPERLIPIDEMIA, UNSPECIFIED Status: Chronic (8) HTN (hypertension) Code(s): I10 - ESSENTIAL (PRIMARY) HYPERTENSION Status: Chronic Qualifiers: Hypertension type: essential hypertension Qualified Code(s): I10 - Essential (primary) hypertension - Plan UTI: Polymicrobial. -continue a 2 week course of cefepime and vancomycin. Status post PICC -[facility] facility to complete this course. History of Adam Wilburn syndrome with functional quadriplegia: neurogenic bladder on chronic Chin catheter. Covid 19 and viral infection -Stable satting 94% in room air. Diabetes mellitus: Stable. adequately controlled. Hypertension: Stable. CAD: Stable, asymptomatic. Since he needs to be on IV antibiotics for 2weeks not sure that home health can give vancomycin twice a day dose as well as 55 twice a day dose Stop date is October ramp manager consult pending for swing bed for IV antibiotic infusion.
[2020-09-25 15:13] LABS: Vancomycin, Trough 25.4 ug/mL
[2020-09-25] MEDS: Vancomycin 1 GM in Premix Bag 1 BAG IVPB SCH (17:13)
[2020-09-26] MEDS: Cefepime 2 GM in Sodium Chloride 0.9% 100 ML IVPB SCH ×2 (01:51→14:15)
[2020-09-26] MEDS: Vancomycin 1 GM in Premix Bag 1 BAG IVPB SCH ×2 (04:55→14:15)
[2020-09-26] MEDS: Aspirin 325 MG TAB PO SCH (08:01)
[2020-09-26] MEDS: Ascorbic Acid 500 mg Chewable Tablet PO SCH (08:01)
[2020-09-26] MEDS: Atorvastatin Calcium 40 MG TAB PO SCH (08:02)
[2020-09-26] MEDS: Zinc Sulfate 220 MG CAP PO SCH (08:02)
[2020-09-26] MEDS: Dutasteride 0.5 MG CAP PO SCH (08:02)
[2020-09-26] MEDS: Lisinopril 5 MG TAB PO SCH (08:02)
[2020-09-26] MEDS: Cholecalciferol 1,000 UNITS (25 MCG) TAB PO SCH (08:02)
[2020-09-26] MEDS: Famotidine 20 MG TAB PO SCH ×2 (08:02→20:44)
[2020-09-26] MEDS: Pregabalin 75 MG CAP PO SCH ×2 (08:03→20:45)
[2020-09-26] MEDS: Tamsulosin HCl 0.4 MG CAP PO SCH (08:03)
[2020-09-26] MEDS: Enoxaparin Sodium 40 MG/0.4 ML SYRINGE SC SCH (08:04)
--- NOTE | 2020-09-26 13:35 | PDOC.HOSPP ---
- Subjective Encounter Date: 09/26/20 Encounter Time: 11:15 Subjective: I have explained to the patient that he needs to have IV antibiotics for 2 weeks. In this context he probably have to go to the swing bed or other facilities where they will provide twice a day IV antibiotic infusion for 2 w eeks. After explaining the situation to him patient is agreed to go to the swing bed. - Objective Vital Signs & Weight: Vital Signs (12 hours) Temp Pulse Resp BP Pulse Ox 09/26/20 08:02 64 09/26/20 07:51 98.6 F 64 18 133/77 91 L Weight Admit Weight 243 lb 9.6 oz Weight 243 lb 9.773 oz I&O: 09/25/20 09/26/20 09/27/20 06:59 06:59 06:59 Intake Total 1390 Output Total 2225 1200 Balance -835 -1200 Result Diagrams: 09/21/20 07:53 09/21/20 07:53 Additional Labs: Accuchecks 09/26/20 09/25/20 05:09 15:49 POC Glucose 89 109 H Hospitalist ROS - Medication Medications: Active Medications Generic Name Dose Route Start Last Admin Trade Name Freq PRN Reason Stop Dose Admin Acetaminophen 1,000 mg 09/15/20 22:39 09/23/20 16:20 Acetaminophen 500 Mg Tab PO 1,000 mg Q6H PRN Administration Mild Pain (1-3) Ascorbic Acid 1,000 mg 09/16/20 09:00 09/26/20 08:01 Ascorbic Acid 500 Mg Chewable Tablet PO 1,000 mg DAILY WARREN Administration Aspirin 325 mg 09/16/20 08:00 09/26/20 08:01 Aspirin 325 Mg Tab PO 325 mg [facility] Administration Atorvastatin Calcium 80 mg 09/16/20 09:00 09/26/20 08:02 Atorvastatin Calcium 40 Mg Tab PO 80 mg DAILY WARREN Administration Cholecalciferol 5,000 units 09/16/20 09:00 09/26/20 08:02 Cholecalciferol 1,000 Units (25 Mcg) Tab PO 5,000 units DAILY WARREN Administration Dutasteride 0.5 mg 09/16/20 09:00 09/26/20 08:02 Dutasteride 0.5 Mg Cap PO 0.5 mg DAILY WARREN Administration Enoxaparin Sodium 40 mg 09/19/20 09:00 09/26/20 08:04 Enoxaparin Sodium 40 Mg/0.4 Ml Syringe SC 40 mg 0900 WARREN Administration Famotidine 20 mg 09/16/20 09:00 09/26/20 08:02 Famotidine 20 Mg Tab PO 20 mg BID WARREN Administration Cefepime HCl 2 gm/ Sodium 100 mls @ 200 mls/hr 09/20/20 14:00 09/26/20 01:51 Chloride IVPB 100 mls 0200,1400 WARREN Administration Vancomycin HCl 1 gm/ Device 200 mls @ 200 mls/hr 09/25/20 16:00 09/26/20 04:55 IVPB 200 mls 0400,1600 WARREN Administration Lisinopril 5 mg 09/16/20 09:00 09/26/20 08:02 Lisinopril 5 Mg Tab PO 5 mg DAILY WARREN Administration Metoprolol Succinate 50 mg 09/21/20 09:00 09/26/20 08:02 Metoprolol Succinate Xl 50 Mg Tab PO 50 mg BID WARREN Administration Mirabegron 50 mg 09/16/20 09:00 09/26/20 08:02 Mirabegron Er 25 Mg Tab PO 50 mg DAILY WARREN Administration Polyethylene Glycol 17 gm 09/19/20 15:25 09/20/20 13:21 Polyethylene Glycol 3350 17 Gm Packet PO 17 gm DAILYPRN PRN Administration Constipation Pregabalin 75 mg 09/16/20 09:00 09/26/20 08:03 Pregabalin 75 Mg Cap PO 75 mg BID WARREN Administration Tamsulosin HCl 0.4 mg 09/16/20 09:00 09/26/20 08:03 Tamsulosin Hcl 0.4 Mg Cap PO 0.4 mg DAILY WARREN Administration Zinc Sulfate 220 mg 09/16/20 09:00 09/26/20 08:02 Zinc Sulfate 220 Mg Cap PO 220 mg DAILY WARREN Administration - Exam General Appearance: NAD, awake alert Eye: PERRL ENT: normocephalic atraumatic Neck: supple Heart: RRR Respiratory: CTAB, normal chest expansion Gastrointestinal: soft Neurological: no focal deficits Hosp A/P - Plan (1) UTI (urinary tract infection) Status: Acute Qualifiers: Urinary tract infection type: catheter-associated UTI Indwelling urinary catheter type: indwelling urethral catheter Encounter type: subsequent encounter Qualified Code(s): T83.511D - Infection and inflammatory reaction due to indwelling urethral catheter, subsequent encounter; N39.0 - Urinary tract infection, site not specified (2) Neurogenic bladder Code(s): N31.9 - NEUROMUSCULAR DYSFUNCTION OF BLADDER, UNSPECIFIED Status: Acute (3) COVID-19 virus infection Code(s): U07.1 - COVID-19 Status: Acute (4) CAD (coronary artery disease) Code(s): I25.10 - ATHSCL HEART DISEASE OF [place] CORONARY ARTERY W/O ANG PCTRS Status: Chronic Qualifiers: Coronary Disease-Associated Artery/Lesion type: bypass graft [place] vs. 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 -continue a 2 week course of cefepime and vancomycin. Status post PICC -senior care facility to complete this course. History of Adam Wilburn syndrome with functional quadriplegia: neurogenic bladder on chronic Chin catheter. Covid 19 and viral infection -Stable satting 94% in room air. Diabetes mellitus: Stable. adequately controlled. Hypertension: Stable. CAD: Stable, asymptomatic. Since he needs to be on IV antibiotics for 2weeks not sure that home health can give vancomycin twice a day dose as well as 55 twice a day dose Stop date is October financial analysis manager consult pending for swing bed for IV antibiotic infusion.
[2020-09-27] MEDS: Cefepime 2 GM in Sodium Chloride 0.9% 100 ML IVPB SCH ×2 (01:21→15:23)
[2020-09-27] MEDS: Vancomycin 1 GM in Premix Bag 1 BAG IVPB SCH ×2 (04:14→16:22)
[2020-09-27] MEDS: Enoxaparin Sodium 40 MG/0.4 ML SYRINGE SC SCH (07:41)
[2020-09-27] MEDS: Famotidine 20 MG TAB PO SCH ×2 (07:42→21:20)
[2020-09-27] MEDS: Aspirin 325 MG TAB PO SCH (07:42)
[2020-09-27] MEDS: Atorvastatin Calcium 40 MG TAB PO SCH (07:42)
[2020-09-27] MEDS: Cholecalciferol 1,000 UNITS (25 MCG) TAB PO SCH (07:42)
[2020-09-27] MEDS: Dutasteride 0.5 MG CAP PO SCH (07:42)
[2020-09-27] MEDS: Lisinopril 5 MG TAB PO SCH (07:43)
[2020-09-27] MEDS: Ascorbic Acid 500 mg Chewable Tablet PO SCH (07:43)
[2020-09-27] MEDS: Pregabalin 75 MG CAP PO SCH ×2 (07:43→21:20)
[2020-09-27] MEDS: Tamsulosin HCl 0.4 MG CAP PO SCH (07:44)
[2020-09-27] MEDS: Zinc Sulfate 220 MG CAP PO SCH (07:44)
--- NOTE | 2020-09-27 15:44 | PDOC.HOSPP ---
- Subjective Encounter Date: 09/27/20 Encounter Time: 11:30 Subjective: Patient seen this morning. He has no acute complaints. - Objective Vital Signs & Weight: Vital Signs (12 hours) Temp Pulse Resp BP BP Pulse Ox 09/27/20 08:00 98.1 F 67 14 151/85 H 94 L 09/27/20 04:25 98.1 F 68 16 150/69 H 93 L Weight Admit Weight 243 lb 9.6 oz Weight 243 lb 9.773 oz I&O: 09/26/20 09/27/20 09/28/20 06:59 06:59 06:59 Intake Total 460 Output Total 1200 1900 Balance -1200 -1440 Result Diagrams: 09/21/20 07:53 09/21/20 07:53 Additional Labs: Accuchecks 09/27/20 09/27/20 09/26/20 11:38 05:16 16:37 POC Glucose 116 H 95 78 09/26/20 09/25/20 09/24/20 11:55 21:27 16:18 POC Glucose 108 H 90 138 H Hospitalist ROS - Medication Medications: Active Medications Generic Name Dose Route Start Last Admin Trade Name Freq PRN Reason Stop Dose Admin Acetaminophen 1,000 mg 09/15/20 22:39 09/23/20 16:20 Acetaminophen 500 Mg Tab PO 1,000 mg Q6H PRN Administration Mild Pain (1-3) Ascorbic Acid 1,000 mg 09/16/20 09:00 09/27/20 07:43 Ascorbic Acid 500 Mg Chewable Tablet PO 1,000 mg DAILY WARREN Administration Aspirin 325 mg 09/16/20 08:00 09/27/20 07:42 Aspirin 325 Mg Tab PO 325 mg [facility] Administration Atorvastatin Calcium 80 mg 09/16/20 09:00 09/27/20 07:42 Atorvastatin Calcium 40 Mg Tab PO 80 mg DAILY WARREN Administration Cholecalciferol 5,000 units 09/16/20 09:00 09/27/20 07:42 Cholecalciferol 1,000 Units (25 Mcg) Tab PO 5,000 units DAILY WARREN Administration Dutasteride 0.5 mg 09/16/20 09:00 09/27/20 07:42 Dutasteride 0.5 Mg Cap PO 0.5 mg DAILY WARREN Administration Enoxaparin Sodium 40 mg 09/19/20 09:00 09/27/20 07:41 Enoxaparin Sodium 40 Mg/0.4 Ml Syringe SC 40 mg 0900 WARREN Administration Famotidine 20 mg 09/16/20 09:00 09/27/20 07:42 Famotidine 20 Mg Tab PO 20 mg BID WARREN Administration Cefepime HCl 2 gm/ Sodium 100 mls @ 200 mls/hr 09/20/20 14:00 09/27/20 15:23 Chloride IVPB 100 mls 0200,1400 WARREN Administration Vancomycin HCl 1 gm/ Device 200 mls @ 200 mls/hr 09/25/20 16:00 09/27/20 04:14 IVPB 200 mls 0400,1600 WARREN Administration Lisinopril 5 mg 09/16/20 09:00 09/27/20 07:43 Lisinopril 5 Mg Tab PO 5 mg DAILY WARREN Administration Metoprolol Succinate 50 mg 09/21/20 09:00 09/27/20 07:43 Metoprolol Succinate Xl 50 Mg Tab PO 50 mg BID WARREN Administration Mirabegron 50 mg 09/16/20 09:00 09/27/20 07:44 Mirabegron Er 25 Mg Tab PO 50 mg DAILY [facility]ARREN Administration Polyethylene Glycol 17 gm 09/19/20 15:25 09/20/20 13:21 Polyethylene Glycol 3350 17 Gm Packet PO 17 gm DAILYPRN PRN Administration Constipation Pregabalin 75 mg 09/16/20 09:00 09/27/20 07:43 Pregabalin 75 Mg Cap PO 75 mg BID WARREN Administration Tamsulosin HCl 0.4 mg 09/16/20 09:00 09/27/20 07:44 Tamsulosin Hcl 0.4 Mg Cap PO 0.4 mg DAILY WARREN Administration Zinc Sulfate 220 mg 09/16/20 09:00 09/27/20 07:44 Zinc Sulfate 220 Mg Cap PO 220 mg DAILY WARREN Administration - Exam General Appearance: NAD, awake alert Eye: PERRL ENT: normocephalic atraumatic Neck: supple Heart: RRR Respiratory: CTAB, normal chest expansion Gastrointestinal: soft, normal bowel sounds Neurological: cranial nerve grossly intact, no focal deficits Neurological - other findings: Functional quadruplegic Musculoskeletal: generalized weakness Psychiatric: normal behavior, A&O x 3 Hosp A/P - Plan (1) UTI (urinary tract infection) Status: Acute Qualifiers: Urinary tract infection type: catheter-associated UTI Indwelling urinary catheter type: indwelling urethral catheter Encounter type: subsequent encounter Qualified Code(s): T83.511D - Infection and inflammatory reaction due to indwelling urethral catheter, subsequent encounter; N39.0 - Urinary tract infection, site not specified (2) Neurogenic bladder Code(s): N31.9 - NEUROMUSCULAR DYSFUNCTION OF BLADDER, UNSPECIFIED Status: Acute (3) COVID-19 virus infection Code(s): U07.1 - COVID-19 Status: Acute (4) CAD (coronary artery disease) Code(s): I25.10 - ATHSCL HEART DISEASE OF [place] CORONARY ARTERY W/O ANG PCTRS Status: Chronic Qualifiers: Coronary Disease-Associated Artery/Lesion type: bypass graft [place] vs. 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 -continue a 2 week course of cefepime and vancomycin. Status post PICC -detention facility to complete this course. History of Adam Wilburn syndrome with functional quadriplegia: neurogenic bladder on chronic Chin catheter. Covid 19 and viral infection -Stable satting 94% in room air. Diabetes mellitus: Stable. adequately controlled. Hypertension: Stable. CAD: Stable, asymptomatic. Since he needs to be on IV antibiotics for 2weeks not sure that home health can give vancomycin twice a day dose as well as 55 twice a day dose Stop date is October procurement services manager consult pending for swing bed for IV antibiotic infusion.
[2020-09-27 16:08] LABS: Vancomycin, Trough 15.5 ug/mL
[2020-09-28] MEDS: Cefepime 2 GM in Sodium Chloride 0.9% 100 ML IVPB SCH ×2 (03:23→14:42)
[2020-09-28] MEDS: Vancomycin 1 GM in Premix Bag 1 BAG IVPB SCH ×2 (03:23→15:57)
[2020-09-28 04:35] LABS: Anion Gap 11 mmol/L (10-20); BUN (Urea Nitrogen) 7 mg/dL (8.4-25.7); Calc. Creatinine Clearance 204 mL/min (70-130); Calcium 7.8 mg/dL (7.8-10.44); Carbon Dioxide 29 mmol/L (23-31); Chloride 103 mmol/L (98-107); Glucose 127 mg/dL (83-110); Potassium 4.2 mmol/L (3.5-5.1); Sodium 139 mmol/L (136-145)
[2020-09-28 07:45] LABS: #Basophils 0.1 thou/uL (0.0-0.2); #Eosinphils 0.2 thou/uL (0.0-0.7); #Lymphocytes 1.4 thou/uL (1.20-3.40); #Monocytes 0.7 thou/uL (0.11-0.59); #Neutrophils 5.8 thou/uL (1.40-6.50); %Basophils 0.6 % (0.0-1.0); %Eosinophils 2.9 % (0.0-10.0); %Lymphocytes 17.7 % (21.0-51.0); %Monocytes 8.2 % (0.0-10.0); %Neutrophils 70.6 % (42.0-75.0); Hemoglobin 12.3 g/dL (14.0-18.0); Mean Corpuscular HGB CONC 33.8 g/dL (32.0-36.0); Mean Corpuscular Hemoglobin 32.3 pg (27.0-31.0); Mean Corpuscular Volume 95.5 fL (78.0-98.0); Mean Platelet Volume 6.1 fL (7.4-10.4); Platelet Count 263 thou/uL (130-400); RBC Distribution Width 13.7 % (11.5-14.5); Red Blood Cell (RBC) Count 3.82 mill/uL (4.70-6.10); White Blood Cell (WBC) Count 8.1 thou/uL (4.8-10.8)
[2020-09-28] MEDS: Famotidine 20 MG TAB PO SCH (07:59)
[2020-09-28] MEDS: Enoxaparin Sodium 40 MG/0.4 ML SYRINGE SC SCH (07:59)
[2020-09-28] MEDS: Ascorbic Acid 500 mg Chewable Tablet PO SCH (07:59)
[2020-09-28] MEDS: Atorvastatin Calcium 40 MG TAB PO SCH (08:00)
[2020-09-28] MEDS: Tamsulosin HCl 0.4 MG CAP PO SCH (08:00)
[2020-09-28] MEDS: Lisinopril 5 MG TAB PO SCH (08:00)
[2020-09-28] MEDS: Cholecalciferol 1,000 UNITS (25 MCG) TAB PO SCH (08:00)
[2020-09-28] MEDS: Zinc Sulfate 220 MG CAP PO SCH (08:00)
[2020-09-28] MEDS: Pregabalin 75 MG CAP PO SCH (08:01)
[2020-09-28] MEDS: Dutasteride 0.5 MG CAP PO SCH (08:02)
[2020-09-28] MEDS: Aspirin 325 MG TAB PO SCH (08:02)
--- NOTE | 2020-09-28 14:20 | PDOC.DS.DS ---
Provider - Provider Date of Admission: 09/15/20 12:38 Admitting Provider: Manuel Santana DO Primary Care Physician: Stormy Zamora PA-C Course - Hospital Course Hospital Course: 75-year-old male presented with (1) UTI (urinary tract infection) Status: Acute Qualifiers: Urinary tract infection type: catheter-associated UTI Indwelling urinary catheter type: indwelling urethral catheter Encounter type: subsequent encounter Qualified Code(s): T83.511D - Infection and inflammatory reaction due to indwelling urethral catheter, subsequent encounter; N39.0 - Urinary tract infection, site not specified (2) Neurogenic bladder Code(s): N31.9 - NEUROMUSCULAR DYSFUNCTION OF BLADDER, UNSPECIFIED Status: Acute (3) COVID-19 virus infection Code(s): U07.1 - COVID-19 Status: Acute (4) CAD (coronary artery disease) Code(s): I25.10 - ATHSCL HEART DISEASE OF [place] CORONARY ARTERY W/O ANG PCTRS Status: Chronic Qualifiers: Coronary Disease-Associated Artery/Lesion type: bypass graft [place] vs. 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 -continue a 2 week course of cefepime and vancomycin. Status post PICC vancomycin twice a day dose as well as cefepime twice a day dose Stop date is October. Needs weekly lab including CBC CMP and CRP and vancomycin trough level and has to be followed with ID clinic. History of Adam Wilburn syndrome with functional quadriplegia: neurogenic bladder on chronic Dumont catheter. Covid 19 and viral infection -Stable satting 94% in room air. Diabetes mellitus: Stable. adequately controlled. Hypertension: Stable. CAD: Stable, asymptomatic. Stable to be discharged to the swing bed. Discharge time over 30 minutes. Resuscitation Status: 09/15/20 15:23 Resuscitation Status Routine Resuscitation Status: FULL: Full Resuscitation - Labs Lab Results: 09/28/20 06:10 09/28/20 03:30 Abnormal Lab Results - Last 48 hrs 09/28/20 03:30: BUN 7 L, Creatinine 0.49 L 09/28/20 06:10: RBC 3.82 L, Hgb 12.3 L, Hct 36.4 L, MCH 32.3 H, MPV 6.1 L, Lymphocytes % 17.7 L, Monocytes # 0.7 H Microbiology - Entire Visit 09/15/20 10:17 Urine dumont catheter Urine Culture - Final Citrobacter amalonaticus Citrobacter freundii Pseudomonas aeruginosa Methicillin resistant S.aureus - Physical Exam Vitals: Vital Signs (12 hours) Temp Pulse Resp BP BP BP Pulse Ox 09/28/20 12:07 98 F 62 20 125/72 94 L 09/28/20 08:00 114/69 65 L 09/28/20 07:18 97 F L 65 18 114/69 95 09/28/20 06:15 97.9 F 65 20 126/74 91 L Weight Admit Weight 243 lb 9.6 oz Weight 243 lb 9.773 oz Physical Exam: The patient was seen and examined on the day of discharge. Discharge plan discussed with the patient. Likely will be discharged to the swing bed today. Papers signed. Plan - Discharge Medications Home Medications: Medication Instructions Recorded Confirmed Type Aspirin 325 mg PO DAILY 01/06/20 09/15/20 History Lisinopril 0.5 tab PO DAILY 01/06/20 09/15/20 History Loratadine [Claritin] 10 mg PO DAILY 01/06/20 09/15/20 History Metoprolol Succinate 1 tab PO BID 01/06/20 09/15/20 History Pregabalin 1 tab PO BID 01/06/20 09/15/20 History metFORMIN HCl [Metformin HCl ER] 2 tab PO BID 01/06/20 09/15/20 History Melatonin/Pyridoxine HCL (B6) 2 tablet PO HS 01/19/20 09/15/20 History [Melatonin 3 mg Tablet] Mirabegron [Myrbetriq ER] 50 mg PO DAILY 01/19/20 09/15/20 History Pantoprazole [Protonix] 40 mg PO DAILY #30 tab 01/19/20 09/15/20 Rx Tamsulosin HCl [Flomax] 0.4 mg PO DAILY 01/19/20 09/15/20 History cloNIDine HCl 0.1 mg PO Q6HR PRN 01/19/20 09/15/20 History azaTHIOprine [Azathioprine] 50 mg PO BID 09/16/20 09/16/20 History traZODone HCl [Trazodone HCl] 50 mg PO HS 09/16/20 09/16/20 History Atorvastatin Calcium [Lipitor] 80 mg PO DAILY tab 09/28/20 Rx Cefepime [Maxipime] 2 gm IVPB 0200,1400 vial 09/28/20 Rx Dutasteride [Avodart] 0.5 mg PO DAILY cap 09/28/20 Rx Vancomycin 1 gm IVPB 0400,1600 bag 09/28/20 Rx Allergies: No Known Allergies Allergy (Verified 09/15/20 22:46) - Discharge Instructions Discharge Instructions:: PCP follow up in 2 to 3 weeks after rehab. Activity:: Activity as Tolerated Nourishment:: Heart Healthy Diet - Follow up Plan Referrals: Stormy Zamora PA-C [Primary Care Provider] - Shaun Morales MD [Active] - Disposition: INTERMEDIATE FACILITY Quality - Care Measures CORE MEASURES:: N/A
[2020-09-28 16:55] VITALS: BP 148/82; TEMP 97.8
== END 2020-09-28 17:56 | DRG 698 ==
LOC: ERS 10:13 → ERHOLD 12:38 → T4-B 22:36
PROVIDERS: ADMIT Family Medicine; ATTEND Internal Medicine
PROC: 0T2BX0Z Change Drainage Device in Bladder, External Approach (ICD-10-PCS; principal; 2020-09-15)
PROC: 8E0ZXY6 Isolation (ICD-10-PCS; 2020-09-15)
PROC: 02HV33Z Insertion of Infusion Device into Superior Vena Cava, Percutaneous Approach (ICD-10-PCS; 2020-09-21)
PROC: B518ZZA Fluoroscopy of Superior Vena Cava, Guidance (ICD-10-PCS; 2020-09-21)
DX: T83.511A Infection and inflammatory reaction due to indwelling urethral catheter, initial encounter (principal); U07.1 COVID-19; G82.50 Quadriplegia, unspecified; A41.52 Sepsis due to Pseudomonas; A41.02 Sepsis due to Methicillin resistant Staphylococcus aureus; A41.89 Other specified sepsis; G61.0 Guillain-Barre syndrome; E44.0 Moderate protein-calorie malnutrition; N12 Tubulo-interstitial nephritis, not specified as acute or chronic; I25.810 Atherosclerosis of coronary artery bypass graft(s) without angina pectoris; Y84.6 Urinary catheterization as the cause of abnormal reaction of the patient, or of later complication, without mention of misadventure at the time of the procedure; N31.9 Neuromuscular dysfunction of bladder, unspecified; I10 Essential (primary) hypertension; E78.5 Hyperlipidemia, unspecified; E11.9 Type 2 diabetes mellitus without complications; K21.9 Gastro-esophageal reflux disease without esophagitis; N40.0 Benign prostatic hyperplasia without lower urinary tract symptoms; R33.9 Retention of urine, unspecified; Z95.1 Presence of aortocoronary bypass graft; Z79.82 Long term (current) use of aspirin; Z79.899 Other long term (current) drug therapy; Z79.84 Long term (current) use of oral hypoglycemic drugs; Z79.52 Long term (current) use of systemic steroids; Z99.3 Dependence on wheelchair; Z68.34 Body mass index [BMI] 34.0-34.9, adult; Z82.49 Family history of ischemic heart disease and other diseases of the circulatory system
CPT/HCPCS: 36415; 36416; 36569; 71045; 74176; 80048; 80053; 80202; 81003; 81015; 82550; 82728; 85025; 85379; 86140; 87077; 87086; 87186; 87635; 96365; 96366; 96367; C1751; J0692; J0696; J1644; J1650; J2185; J3370; J3490; J7030; J7050; Q0162; U0003

== ENCOUNTER 2020-10-18 09:53 | Inpatient (IN) | payer MEDICARE, BC ==
[~2020-10-18 09:53] MED LIST changes: +Iopamidol-370 76% 500 ML 1 ML ONE; +Lidocaine 1% PF 5 ML VIAL ONE; -OCTAGAM 10% 80 GM, OCTAGAM 10% 10 GM in Admixture Fee 1 EACH IVPB SCH; +PROPOFOL 200 MG/20 ML VIAL ONE; +Rocuronium Bromide 10 MG/ML (10ML VIAL) ONE; +ePHEDrine 50 MG/ML VIAL ONE
[2020-10-18 10:23] LABS: Hemoglobin 13.6 g/dL (14.0-18.0); Mean Corpuscular HGB CONC 31.9 g/dL (32.0-36.0); Mean Corpuscular Volume 97.4 fL (78.0-98.0); Mean Platelet Volume 6.3 fL (7.4-10.4); Platelet Count 277 thou/uL (130-400); RBC Distribution Width 14.6 % (11.5-14.5); Red Blood Cell (RBC) Count 4.37 mill/uL (4.70-6.10); White Blood Cell (WBC) Count 19.9 thou/uL (4.8-10.8)
[2020-10-18] MEDS ORDERED: Morphine 4 MG/ML VIAL ONE (10:34)
--- NOTE | 2020-10-18 10:43 | RAD ---
CHEST 1 VIEW: HISTORY: Right lower quadrant pain. Chest pain. COMPARISON: Radiograph 09/16/2020. FINDINGS: Heart size is enlarged. Lungs are hypoinflated with vascular crowding and atelectatic changes. No p neumothorax. Multiple midline sternotomy wires. IMPRESSION: Lung hypoinflation with cardiomegaly and scattered atelectatic changes. No definite evidence for pne umonia or significant change. POS: [facility]
[2020-10-18 10:48] LABS: Band 28 % (5-11); Eosinophils 2 % (0-10); Lymphocytes 9 % (21-51); MDiff Complete? YES; Neutrophil 57 % (42-75); Platelet Morphology Comment Appears Adequate; RBC Morphology Normal; Reactive Lymphocytes 3 % (0-10); Vacuoles SLIGHT
[2020-10-18 10:53] LABS: ALT (SGPT) 50 U/L (8-55); AST (SGOT) 52 U/L (5-34); Albumin 3.4 g/dL (3.4-4.8); Alkaline Phosphatase 98 U/L (40-110); Anion Gap 18 mmol/L (10-20); BUN (Urea Nitrogen) 10 mg/dL (8.4-25.7); Bilirubin, Total 1.5 mg/dL (0.2-1.2); Calc. Creatinine Clearance 0 mL/min (70-130); Carbon Dioxide 31 mmol/L (23-31); Chloride 96 mmol/L (98-107); Glucose 208 mg/dL (83-110); Lipase 11 U/L (8-78); Potassium 4.6 mmol/L (3.5-5.1); Protein, Total 6.4 g/dL (5.8-8.1); Sodium 140 mmol/L (136-145)
[2020-10-18 11:01] LABS: Bilirubin Negative (Negative); Blood, Urine Large (Negative); Glucose, Urine (Dipstick) 100 mg/dL (Negative); Ketone, Urine Negative (Negative); Leukocyte Small (Negative); Nitrite Positive (Negative); Protein, Urine (Dipstick) 30 mg/dL (Neg-Trace); pH, Urine 7.5 (5.0-9.0)
[2020-10-18 11:14] LABS: Clarity Clear (Clear)
[2020-10-18 11:15] LABS: Bacteria/HPF 3+ HPF (None Seen)
[2020-10-18] MEDS ORDERED: cefTRIAXone\\ROCEPHIN 1 GM VIAL ONE (12:06)
--- NOTE | 2020-10-18 12:32 | CT ---
CT ABDOMEN AND PELVIS WITH IV CONTRAST: HISTORY: Right lower quadrant abdominal pain. FINDINGS: Comparison is made with the CT stone protocol of 09/15/2020. A tiny left pleural effusion is seen with bibasilar atelectatic changes. Tiny calcified granulomas a re seen in the liver and spleen. There are calcified gallstones in a distended gallbladder. There i s a small amount of free fluid in the right upper and lower quadrant. The appendix is mildly dilated measuring 7-8 mm with intraluminal fluid. No significant periappendicular inflammatory changes are seen, though there is a small amount of fluid adjacent to it. There are mild inflammatory changes in the inferior aspect of the gallbladder. No free air or lymphadenopathy is noted in the abdomen or pelvis. There are vascular calcifications without evidence of aneurysmal dilatation of the abdominal aorta. The small bowel loops are not abno rmally dilated. The pancreas and adrenal glands are normal. Nonobstructing bilateral renal calculi (4 mm on the righ t and 8 mm in the left) and calculi in the bladder are again seen. No hydroureteral nephrosis is not ed on either side. There is a 7 mm low-density lesion in the left renal cortex, likely cyst. A Fole y catheter in the urinary bladder is again seen. There are vascular calcifications without evidence of aneurysmal dilatation of the abdominal aorta. Multilevel degenerative changes are seen in the spine. There is colonic diverticulosis. Small fat-c ontaining umbilical hernia is again noted. IMPRESSION: 1. Tiny left pleural effusion. 2. Cholelithiasis with distended gallbladder and mild adjacent inflammatory change. The possibility of acute cholecystitis should be considered. 3. Mildly dilated fluid-filled appendix. Early or developing appendicitis should be considered. POS: [facility]
[2020-10-18] MEDS ORDERED: Piperacillin/Tazobactam 4.5 GM VIAL ONE (12:36)
--- NOTE | 2020-10-18 13:35 | ULT ---
GALLBLADDER ULTRASOUND: Date: 10/18/2020 HISTORY: Abdominal pain. RUQ pain. Correlation: made with CT abdomen and pelvis from earlier today. FINDINGS: The pancreas is not well visualized due to overlying bowel gas. The liver demonstrates mild increased echogenicity indicative of mild fatty infiltration without focal mass or abnormal biliary ductal dil atation. The common duct measures 7.0 mm in diameter. The gallbladder is distended, measuring 11.0 cm , with shadowing gallstones, mild gallbladder wall thickening (4.0 mm), and small amount of free flui d adjacent to the liver and gallbladder (pericholecystic fluid). A nonobstructing right renal calculu s is again noted. The machine gunner reports a positive May's sign. IMPRESSION: Cholelithiasis with gallbladder distention, gallbladder wall thickening, pericholecystic fluid, and positive sonographic May's sign. Findings are highly suspicious for acute cholecystitis. POS: [facility]
[2020-10-18] MEDS ORDERED: Iothalamate Meglumine 60% 50 ML VIAL FS ONE (13:46)
[2020-10-18] MEDS ORDERED: Bupivacaine PF 0.5% 30 ML VIAL ONE (13:46)
[2020-10-18] MEDS ORDERED: Lidocaine 2% w/Epinephrine 1:200K 20 ML VIAL ONE (13:46)
[2020-10-18] MEDS ORDERED: Fentanyl 100 MCG/2 ML VIAL ONE ×3 (14:18→16:56)
[2020-10-18] MEDS ORDERED: Phenylephrine 10 MG/ML VIAL ONE (14:18)
--- NOTE | 2020-10-18 14:31 | HP ---
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 He is tender in both right upper quadrant and right lower quadrant. CAT scan obtained revealed changes suggestive of cholecystitis with inflammatory change about the gallbladder, calcified gallstones, but also a dilated appendix without inflammatory changes. Some concern for early acute appendicitis was raised. The patient has had intermittent elevation of his bilirubin to a mild degree in his blood draws over the past months to years. Currently, his bilirubin is 1.5; AST 52; ALT normal at 50; alkaline phosphatase 98, normal; lipase is normal. White count 19, hemoglobin 13. Gallbladder ultrasound was subsequently obtained revealing cholelithiasis with gallbladder distention, gallbladder wall thickening, pericholecystic fluid, positive sonographic May sign with a bile duct of 4 mm. ALLERGIES: NONE. SOCIAL HISTORY: Tobacco, none. Alcohol, none. MEDICATIONS AT HOME: 1. Trazodone 50 mg at bedtime. 2. Metformin b.i.d., 2 tabs, . 3. He is listed as taking vancomycin IV which he was on for pyelonephritis but he is not currently taking that. 4. Azathioprine 50 mg b.i.d. 5. Flomax 0.4 mg a day. 6. Pregabalin b.i.d. 7. Protonix 40 mg a day. 8. Myrbetriq 50 mg daily. 9. Metoprolol 1 p.o. b.i.d. 10. Melatonin at bedtime. 11. Loratadine 10 mg daily. 12. Lisinopril 0.5 mg daily. 13. Avodart 0.5 mg daily. 14. Cefepime discontinued, on it for pyelo. PICC line has been removed. 15. Atorvastatin daily. 16. Aspirin daily. PAST SURGICAL HISTORY: Coronary artery bypass grafting, 1999, [place]. Total knee replacement, 11/20/2017. Upper and lower endoscopy, Dr. Weir. PAST MEDICAL HISTORY: Diabetes mellitus; hypertension; coronary artery disease; elevated cholesterol; stable coronary artery disease, although asymptomatic. The patient had a nuclear medicine Cardiolite stress test, December 2019, that was normal. Echocardiogram, 01/19/2020, with normal ejection fraction. No significant valvular disease. The patient had a COVID illness positive in August. He was not really sick from that. COVID test positive, 09/15/2020. He was not re-tested. REVIEW OF SYSTEMS: Noncontributory. PHYSICAL EXAMINATION: VITAL SIGNS: Blood pressure 140/78, respiratory rate 18, heart rate 80. HEAD, EARS, EYES, NOSE, AND THROAT: Unremarkable. Sclerae nonicteric. Skin not jaundiced. LUNGS: Clear to auscultation. No wheezing. CARDIAC: Regular rate and rhythm without murmur or gallop. ABDOMEN: Soft. Tenderness in his right upper quadrant. No guarding or rebound. Tenderness to right lower quadrant. EXTREMITIES: Unremarkable. ASSESSMENT AND PLAN: 1. Acute cholecystitis with cholelithiasis. Recommend laparoscopic video cholecystectomy. Cholangiogram reveals his bile duct is normal caliber at 4 mm. However, his bilirubin is intermittently elevated. We will check this. 2. We will view his appendix, consider appendectomy, as he is slightly tender over his appendix and CAT scan raises the question of possible appendicitis. 3. 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 4. Coronary artery disease, stable. Negative cardiac stress test and echocardiogram, December 2019. Job ID: [id number]
[2020-10-18] MEDS ORDERED: Ondansetron HCl/PF 4 MG/2 ML Vial IVP PRN (15:16)
[2020-10-18] MEDS ORDERED: Promethazine HCl 25 MG/ML VIAL SLOW IVP PRN (15:16)
[2020-10-18] MEDS ORDERED: Promethazine HCl 25 MG/ML VIAL IM PRN (15:16)
[2020-10-18] MEDS ORDERED: Dextrose 5% in Water 1,000 ML IV PRN (16:10)
[2020-10-18] MEDS ORDERED: Morphine 4 MG/ML VIAL SLOW IVP PRN (16:10)
[2020-10-18] MEDS ORDERED: Ondansetron PF 4 MG/2 ML Vial IVP PRN (16:10)
[2020-10-18] MEDS ORDERED: Dextrose 50% Abboject 50 ML SYRINGE SLOW IVP PRN (16:10)
[2020-10-18] MEDS ORDERED: Ondansetron ODT 4 MG TAB PO PRN (16:10)
[2020-10-18] MEDS ORDERED: HumaLOG 300 UNITS/3 ML VIAL SC PRN (16:10)
[2020-10-18] MEDS ORDERED: hydrALAZINE 20 MG/ML VIAL SLOW IVP PRN (16:10)
--- NOTE | 2020-10-18 19:12 | OP ---
DATE OF PROCEDURE: 10/18/2020 PREOPERATIVE DIAGNOSES: Acute cholecystitis, possible appendicitis. POSTOPERATIVE DIAGNOSES: Severe acute cholecystitis, cholelithiasis, possible early appendicitis, Guillain-[place] syndrome. PROCEDURES PERFORMED: Laparoscopic video cholecystectomy, Basilia used, laparoscopic video appendectomy. ANESTHESIA: General, local 0.5% Marcaine 30 mL mixed with 1% Xylocaine with epinephrine 20 mL. FINDINGS: Severe acute cholecystitis. Basilia used in the gallbladder bed. Perhaps slightly minimally indurated appendix, questionable appendicitis DESCRIPTION OF PROCEDURE: The patient was taken to the operating room, where under general anesthesia, abdomen was clipped of hair, prepared with ChloraPrep and draped in routine fashion. Local anesthetic was infiltrated in the skin and subcutaneous tissue about all port sites. An infraumbilical incision made, pneumoperitoneum to 15 mmHg was obtained with a Veress needle, replaced with a 5 port, video laparoscope inserted. Right subxiphoid incision made and a 12 port placed. Right subcostal incision made in midclavicular anterior axillary line and 5 ports placed. The gallbladder was acutely inflamed, thickened wall, edematous, and omental adhesions taken down with quite a bit of bloody oozing. Fundus was grasped and retracted cephalad. Liver appeared to be normal. Infundibulum grasped and retracted laterally. Careful dissection revealed a critical view. Cystic artery and duct doubly clipped proximally and divided, and gallbladder dissected free from liver bed, obtaining good hemostasis prior to division of final peritoneal attachments. Gallbladder and contents removed in the endobag. Irrigant evacuated. Good hemostasis assured with cautery. Basilia was used. Attention was turned to the appendix. With the patient in Trendelenburg, left lateral decubitus position, appendix appeared slightly indurated, but not inflamed. Mesoappendix was taken down with the LigaSure. The stump of the appendix divided at the cecal stump with an Endo-KAYLEIGH blue load stapler and stapled cecal stump, hemostatic after clip placement. Appendix removed and submitted to Pathology. Good hemostasis ensured. Irrigant and pneumoperitoneum evacuated. All instruments removed and subxiphoid fascia approximated with 0 Vicryl. All skin incisions approximated with interrupted subdermal 4-0 Monocryl and [place] glue applied. Job ID: [id number]
[2020-10-18] MEDS: Lactated Ringer's 1,000 ML IV SCH ×2 (19:53→22:22)
[2020-10-18] MEDS: traMADol HCl 50 MG TAB PO PRN (19:58)
[2020-10-18 21:12] LABS: Lactic Acid 3.5 mmol/L (0.5-2.2)
[2020-10-18 22:02] VITALS: BMI 35.2
[2020-10-18] MEDS: Famotidine 20 MG TAB PO SCH (22:18)
[2020-10-18] MEDS: Morphine 2 MG/ML VIAL SLOW IVP PRN (22:32)
[2020-10-19] MEDS: Morphine 2 MG/ML VIAL SLOW IVP PRN ×2 (02:26→06:45)
[2020-10-19 06:21] LABS: ALT (SGPT) 46 U/L (8-55); AST (SGOT) 52 U/L (5-34); Albumin 2.7 g/dL (3.4-4.8); Alkaline Phosphatase 62 U/L (40-110); Anion Gap 13 mmol/L (10-20); BUN (Urea Nitrogen) 12 mg/dL (8.4-25.7); Bilirubin, Total 1.5 mg/dL (0.2-1.2); Calc. Creatinine Clearance 218 mL/min (70-130); Calcium 8.2 mg/dL (7.8-10.44); Carbon Dioxide 28 mmol/L (23-31); Chloride 98 mmol/L (98-107); Globulin 2.4 g/dL (2.4-3.5); Glucose 127 mg/dL (83-110); Potassium 4.2 mmol/L (3.5-5.1); Protein, Total 5.1 g/dL (5.8-8.1); Sodium 135 mmol/L (136-145)
[2020-10-19 06:27] LABS: Hemoglobin 10.6 g/dL (14.0-18.0); Mean Corpuscular HGB CONC 32.7 g/dL (32.0-36.0); Mean Corpuscular Volume 97.8 fL (78.0-98.0); Mean Platelet Volume 6.3 fL (7.4-10.4); Platelet Count 173 thou/uL (130-400); RBC Distribution Width 14.9 % (11.5-14.5)
[2020-10-19] MEDS: Famotidine 20 MG TAB PO SCH ×2 (07:33→21:05)
[2020-10-19] MEDS: traMADol HCl 50 MG TAB PO PRN ×3 (07:33→19:40)
[2020-10-19] MEDS: Acetaminophen 500 MG TAB PO PRN ×3 (07:33→19:39)
[2020-10-19] MEDS: Enoxaparin Sodium 40 MG/0.4 ML SYRINGE SC SCH (07:34)
[2020-10-19 07:43] LABS: Band 12 % (5-11); Lymphocytes 8 % (21-51); MDiff Complete? YES; Monocytes 9 % (0-10); Neutrophil 71 % (42-75); Platelet Morphology Comment Appears Adequate; Polychromasia SLIGHT = 2-3 cells (100X) (0-2/hpf)
[2020-10-19] MEDS: Lactated Ringer's 1,000 ML IV SCH (11:21)
[2020-10-19] MEDS: Oxybutynin 5 MG TAB PO PRN (18:11)
--- NOTE | 2020-10-19 18:53 | PRG ---
DATE OF SERVICE: 10/19/2020 SUBJECTIVE: Cam Salazar is doing well after laparoscopic appendectomy, cholecystectomy yesterday. He has a Chin catheter in place, which he was admitted with. He used this at home due to his Guillain-[place]'s. OBJECTIVE: VITAL SIGNS: Temperature 98.2 degrees, pulse 79, and blood pressure 95/55. Room air sat is 88% to 89%, on oxygen 94%. Encourage to use of incentive spirometer. LUNGS: Clear to auscultation. ABDOMEN: Soft. Laparoscopic wounds well healed. Abdomen nontender. EXTREMITIES: Unremarkable. Chin catheter, bedside drainage. LABORATORY DATA: White count is 18,000 this morning, hemoglobin 10.6. Bilirubin 1.5, which is what it was preoperatively. Liver function tests otherwise normal. Electrolytes okay. ASSESSMENT AND PLAN: Status post laparoscopic video appendectomy, cholecystectomy. Continue observation today. Check labs tomorrow. Plan, discharge home tomorrow if he is doing well. Job ID: [id number]
[2020-10-19] MEDS ORDERED: traZODone HCl 50 MG TAB PO SCH (21:00)
[2020-10-19] MEDS ORDERED: Melatonin 3 MG TAB PO SCH (21:00)
[2020-10-19] MEDS: Pregabalin 75 MG CAP PO SCH (21:04)
[2020-10-20 05:58] LABS: Hemoglobin 8.8 g/dL (14.0-18.0); Mean Corpuscular HGB CONC 33.2 g/dL (32.0-36.0); Mean Corpuscular Hemoglobin 31.8 pg (27.0-31.0); Mean Corpuscular Volume 95.6 fL (78.0-98.0); Mean Platelet Volume 6.9 fL (7.4-10.4); Platelet Count 139 thou/uL (130-400); RBC Distribution Width 14.9 % (11.5-14.5); Red Blood Cell (RBC) Count 2.78 mill/uL (4.70-6.10); White Blood Cell (WBC) Count 12.5 thou/uL (4.8-10.8)
[2020-10-20 06:14] LABS: ALT (SGPT) 39 U/L (8-55); AST (SGOT) 42 U/L (5-34); Albumin 2.5 g/dL (3.4-4.8); Alkaline Phosphatase 65 U/L (40-110); Anion Gap 12 mmol/L (10-20); BUN (Urea Nitrogen) 16 mg/dL (8.4-25.7); Calc. Creatinine Clearance 197 mL/min (70-130); Calcium 8.2 mg/dL (7.8-10.44); Carbon Dioxide 28 mmol/L (23-31); Chloride 96 mmol/L (98-107); Globulin 2.6 g/dL (2.4-3.5); Glucose 77 mg/dL (83-110); Potassium 4.2 mmol/L (3.5-5.1); Protein, Total 5.1 g/dL (5.8-8.1); Sodium 132 mmol/L (136-145)
[2020-10-20] MEDS ORDERED: Aspirin 325 MG TAB PO SCH (08:00)
[2020-10-20 08:08] LABS: Band 3 % (5-11); Eosinophils 3 % (0-10); Lymphocytes 8 % (21-51); MDiff Complete? YES; Monocytes 7 % (0-10); Neutrophil 79 % (42-75); Platelet Morphology Comment Appears Adequate; Polychromasia SLIGHT = 2-3 cells (100X) (0-2/hpf)
[2020-10-20] MEDS: Famotidine 20 MG TAB PO SCH (08:31)
[2020-10-20] MEDS: metFORMIN XR 500 MG TAB PO SCH ×2 (08:31→16:07)
[2020-10-20] MEDS: Pregabalin 75 MG CAP PO SCH (08:31)
[2020-10-20] MEDS: Enoxaparin Sodium 40 MG/0.4 ML SYRINGE SC SCH (08:32)
[2020-10-20] MEDS: Oxybutynin 5 MG TAB PO PRN ×2 (08:34→16:07)
[2020-10-20] MEDS ORDERED: Loratadine 10 MG TAB PO SCH (09:00)
[2020-10-20] MEDS ORDERED: Atorvastatin Calcium 40 MG TAB PO SCH (09:00)
[2020-10-20] MEDS ORDERED: Dutasteride 0.5 MG CAP PO SCH (09:00)
[2020-10-20] MEDS ORDERED: Lisinopril 5 MG TAB PO SCH (09:00)
[2020-10-20] MEDS ORDERED: Tamsulosin HCl 0.4 MG CAP PO SCH (09:00)
[2020-10-20] MEDS: traMADol HCl 50 MG TAB PO PRN ×2 (11:51→16:07)
[2020-10-20] MEDS: Acetaminophen 500 MG TAB PO PRN (11:51)
--- NOTE | 2020-10-20 12:20 | PQF ---
CLINICAL DOCUMENTATION CLARIFICATION FORM: Deaigor Mckeon Date: 10/20/20 Please exercise your independent, professional judgment in responding to the clarification form. Clinical indicators are provided on the bottom of this form for your review. Please check appropriate box(es): [ ] Sepsis due to: Due to: [ ] Device (please specify) [ ] Implant [ ] Graft [ ] Infusion Due to: [ ] Procedure (please specify) [ ] Severe sepsis with associated acute organ dysfunction: [ ] Acute Respiratory Failure [ ] Acute Kidney injury w/o ATN [ ] Acute Kidney Injury w ATN [ ] Encephalopathy (metabolic) (septic) [ ] Disseminated Intravascular Coagulopathy (DIC) [ ] Hepatic Failure [ ] Additional/Other: please specify: [ ] Septic Shock [ ] Localized infection without sepsis [ ] SIRS due to non-infectious process (please specify etiology) [ ] with organ dysfunction [ ] without organ dysfunction [ ] Other diagnosis [ ] Unable to determine In addition, please specify: Present on Admission (POA): [ ] Yes [ ] No [ ] Unable to determine For continuity of documentation, please document condition throughout progress notes and discharge summary. Thank You. To be completed by CDI/Coding staff for physician review: CLINICAL INDICATORS - SIGNS / SYMPTOMS / LABS / RESULTS AND LOCATION IN MR WBC 10/18: 19.9 BANDS 10/18: 28 LACTIC ACID 10/18: 3.5 TEMP 100.5 RISK FACTORS / RESULTS AND LOCATION IN MR CHOLECYSTITIS (OP NOTE) EARLY APPENDICITIS (OP NOTE) UTI (ER NOTE) TREATMENTS / RESULTS AND LOCATION IN MR IV ZOSYN (ER) IV ROCEPHIN (ER) IV FLUIDS (ER) IV LEVAQUIN (10/18-PRESENT) BLOOD AND URINE CULTURES LAP CHOLECYSTECTOMY/APPY CDS Signature: Stormy Merida RN Phone #: [phone] Date: 10/20/20 This is a permanent part of the Medical Record [facility]
[2020-10-20 16:54] VITALS: BP 98/63; TEMP 98.3
[2020-10-20] MEDS ORDERED: azaTHIOprine 50 MG TAB PO SCH (21:00)
[2020-10-20] MEDS ORDERED: Nystatin Powder 15 GM BOT TOP SCH (21:00)
--- NOTE | 2020-10-21 00:33 | DIS ---
DATE OF ADMISSION: 10/18/2020 DATE OF DISCHARGE: 10/20/2020 DISCHARGE DIAGNOSES: 1. Acute cholecystitis, cystic duct obstruction, cholelithiasis with necrotizing infection of the gallbladder, normal appendix with appendectomy. 2. Guillain-[place]. 3. Obesity, 35 BMI. 4. Chronic indwelling Chin, admitted with that. 5. Nonambulatory. 6. Diabetes. 7. Hypertension. PREOPERATIVE MEDICATIONS: 1. K-Dur. 2. Calcium. 3. Nystatin powder. 4. Claritin. 5. Trazodone. 6. Crestor. 7. Flomax. 8. Metformin. 9. Metoprolol succinate. 10. Lisinopril. 11. Aspirin. 12. Pregabalin. 13. Protonix. 14. Myrbetriq. 15. Melatonin at bedtime. 16. Avodart. 17. Lipitor. 18. Tramadol. 19. Tylenol. The patient has had a Chin at home. MICROBIOLOGY: Urine culture from the Chin on admission, more than 10 to 5th gram-negative rods, Pseudomonas. PROCEDURES: CT scan of the abdomen and pelvis demonstrating cholecystitis, cholelithiasis suggesting appendiceal dilatation of fluid without inflammation, possible early appendicitis. Abdominal ultrasound, cholecystitis, cholelithiasis, positive sonographic May's sign, normal bile duct caliber. Liver function tests normal. White count on admission 19, discharge 12; hemoglobin on admission 13, discharge 8. HISTORY: 75-year-old male patient presented with abdominal pain with tenderness in is right upper quadrant, right lower quadrant, underwent the above imaging studies, received intravenous fluids, antibiotics, taken to the operating room for laparoscopic cholecystectomy and appendectomy. Postoperatively admitted due to his comorbidities, observed and did well, convalesced, tolerated his diet. He was treated with Zosyn in the ER, Levaquin IV daily until discharged home. Resuming his home medications. Sent a prescription to his pharmacy 30 of tramadol. Follow up with his PCP. Follow up in my office p.r.n. Transferring patient is very difficult and he was observed 2 days after surgery here. Job ID: [id number]
[2020-10-21] MEDS ORDERED: Potassium Chloride 20 MEQ TAB PO SCH (09:00)
[2020-10-21] MEDS ORDERED: Calcium Carbonate 500 MG TAB PO SCH (09:00)
[2020-10-21] MEDS ORDERED: Rosuvastatin 20 MG TAB PO SCH (21:00)
== END 2020-10-20 16:15 | disposition home or self-care (01) | DRG 418 ==
LOC: ERS 09:53 → ERHOLD 16:17 → SURG B 19:04
PROVIDERS: ADMIT Specialist; ATTEND Specialist
PROC: 0FT44ZZ Resection of Gallbladder, Percutaneous Endoscopic Approach (ICD-10-PCS; principal; 2020-10-18)
PROC: 0DTJ4ZZ Resection of Appendix, Percutaneous Endoscopic Approach (ICD-10-PCS; 2020-10-18)
DX: K80.01 Calculus of gallbladder with acute cholecystitis with obstruction (principal); G61.0 Guillain-Barre syndrome; K82.A1 Gangrene of gallbladder in cholecystitis; E11.9 Type 2 diabetes mellitus without complications; I10 Essential (primary) hypertension; Z86.16 Personal history of COVID-19; I25.10 Atherosclerotic heart disease of native coronary artery without angina pectoris; E78.00 Pure hypercholesterolemia, unspecified; Z79.899 Other long term (current) drug therapy; Z79.82 Long term (current) use of aspirin
CPT/HCPCS: 36415; 36416; 71045; 74177; 76705; 80053; 81003; 81015; 83605; 83690; 83880; 84484; 85025; 87040; 87077; 87086; 87186; 88304; 93005; 94760; 96365; 96367; 96375; J0696; J1650; J1956; J2270; J2370; J2543; J2704; J3010; J3490; Q0162; Q9967; S0020

== ENCOUNTER 2020-11-22 20:57 | Inpatient (IN) | payer MEDICARE, BC ==
[~2020-11-22 20:57] MED LIST changes: -Lidocaine 1% PF 5 ML VIAL ONE; -PROPOFOL 200 MG/20 ML VIAL ONE; -Rocuronium Bromide 10 MG/ML (10ML VIAL) ONE; -ePHEDrine 50 MG/ML VIAL ONE
[2020-11-22] MEDS ORDERED: Ondansetron PF 4 MG/2 ML Vial ONE ×3 (21:20→23:58)
[2020-11-22 21:27] LABS: Bacteria/HPF 4+ HPF (None Seen); Bilirubin Negative (Negative); Blood, Urine 1+ (Negative); Clarity Turbid (Clear); Glucose, Urine (Dipstick) Normal (Negative); Ketone, Urine Negative (Negative); Leukocyte 500 Leu/uL (Negative); Nitrite Negative (Negative); Protein, Urine (Dipstick) 50 mg/dL (Neg-Trace); Specific Gravity, Urine 1.012 (1.002-1.036); Squamous Epithelial 0-3 HPF (0-3); Urobilinogen Normal mg/dL (Less than 2); WBC/HPF 21-50 HPF (0-3)
[2020-11-22 22:10] LABS: Hemoglobin 15.1 g/dL (14.0-18.0); Mean Corpuscular HGB CONC 32.4 g/dL (32.0-36.0); Mean Corpuscular Hemoglobin 31.7 pg (27.0-31.0); Mean Corpuscular Volume 97.9 fL (78.0-98.0); Mean Platelet Volume 6.4 fL (7.4-10.4); Platelet Count 160 thou/uL (130-400); RBC Distribution Width 14.8 % (11.5-14.5); Red Blood Cell (RBC) Count 4.75 mill/uL (4.70-6.10); White Blood Cell (WBC) Count 14.7 thou/uL (4.8-10.8)
[2020-11-22 22:22] LABS: ALT (SGPT) 160 U/L (8-55); AST (SGOT) 94 U/L (5-34); Albumin 3.5 g/dL (3.4-4.8); Alkaline Phosphatase 146 U/L (40-110); Anion Gap 18 mmol/L (10-20); BUN (Urea Nitrogen) 19 mg/dL (8.4-25.7); Bilirubin, Total 0.9 mg/dL (0.2-1.2); Calc. Creatinine Clearance 0 mL/min (70-130); Calcium 8.6 mg/dL (7.8-10.44); Carbon Dioxide 23 mmol/L (23-31); Chloride 103 mmol/L (98-107); Globulin 2.7 g/dL (2.4-3.5); Glucose 174 mg/dL (83-110); Lipase 17 U/L (8-78); Potassium 4.8 mmol/L (3.5-5.1); Protein, Total 6.2 g/dL (5.8-8.1); Sodium 139 mmol/L (136-145)
[2020-11-22 22:33] LABS: Band 5 % (5-11); Eosinophils 2 % (0-10); Lymphocytes 13 % (21-51); MDiff Complete? YES; Monocytes 3 % (0-10); Neutrophil 76 % (42-75); Platelet Morphology Comment Appears Adequate; RBC Morphology Normal
[2020-11-22] MEDS ORDERED: cefTRIAXone\\ROCEPHIN 1 GM VIAL ONE (22:46)
[2020-11-22] MEDS ORDERED: Vancomycin 1 GM/200 ML BAG ONE (23:08)
[2020-11-23] MEDS ORDERED: Ketorolac Tromethamine 30 MG/ML VIAL ONE (00:10)
[2020-11-23 01:24] LABS: Lactic Acid 3.5 mmol/L (0.5-2.2)
[2020-11-23] MEDS ORDERED: Morphine 2 MG/ML VIAL SLOW IVP PRN (02:33)
[2020-11-23] MEDS ORDERED: Morphine 2 MG/ML VIAL ONE (02:41)
[2020-11-23] MEDS ORDERED: Norepinephrine 8 MG/0.9% NS 250 ML ONE (04:39)
[2020-11-23] MEDS ORDERED: Ketorolac Tromethamine 30 MG/ML VIAL IVP SCH (04:41)
[2020-11-23] MEDS ORDERED: Hydrocortisone Sod Succ/PF 250 mg/2 ml Vial SLOW IVP SCH ×2 (04:45→15:00)
[2020-11-23] MEDS ORDERED: Norepinephrine 8 MG/0.9% NS 250 ML IVPB SCH (04:45)
[2020-11-23] MEDS ORDERED: PHARMACY TO DOSE CEFEPIME IVPB PRN (05:00)
[2020-11-23] MEDS ORDERED: Dextrose 50% Abboject 50 ML SYRINGE SLOW IVP PRN (05:00)
[2020-11-23] MEDS ORDERED: Dextrose 5% in Water 1,000 ML IV PRN (05:00)
[2020-11-23] MEDS ORDERED: Ketamine 50 MG/ML (10ML VIAL) ONE (05:02)
[2020-11-23] MEDS ORDERED: Phenylephrine 10 MG/ML VIAL ONE (05:02)
[2020-11-23] MEDS ORDERED: Iothalamate Meglumine 60% 50 ML VIAL FS ONE (05:09)
[2020-11-23] MEDS ORDERED: Hydrocortisone Sod Succ/PF 100 mg/2 ml Vial ONE (05:13)
[2020-11-23] MEDS ORDERED: Cefepime 2 GM VIAL ONE (05:13)
[2020-11-23 05:16] LABS: SARS-CoV-2 PCR by NAA Not Detected (NotDetected)
[2020-11-23] MEDS: Cefepime 2 GM in Sodium Chloride 0.9% 100 ML IVPB SCH ×2 (05:17→17:07)
[2020-11-23] MEDS ORDERED: Midazolam HCl 2 mg/2 ml Vial ONE (05:53)
[2020-11-23] MEDS ORDERED: Propofol 1,000 MG/100 ML VIAL IV ONE (07:25)
[2020-11-23] MEDS ORDERED: Fentanyl BOLUS 250 ML IVPB PRN (08:00)
[2020-11-23] MEDS ORDERED: Fentanyl CADD 100 ML IV SCH (08:00)
[2020-11-23] MEDS ORDERED: Propofol BOLUS 1,000 MG/100 ML VIAL IV PRN (08:00)
[2020-11-23] MEDS ORDERED: Propofol 1,000 MG/100 ML VIAL IV PRN (08:00)
[2020-11-23] MEDS ORDERED: Lorazepam 2 MG/ML VIAL SLOW IVP PRN (08:00)
[2020-11-23 08:10] VITALS: BMI 35.0
[2020-11-23 08:11] LABS: Hemoglobin 13.5 g/dL (14.0-18.0); Mean Corpuscular HGB CONC 31.9 g/dL (32.0-36.0); Mean Corpuscular Hemoglobin 31.3 pg (27.0-31.0); Mean Platelet Volume 6.6 fL (7.4-10.4); Platelet Count 154 thou/uL (130-400); RBC Distribution Width 15.2 % (11.5-14.5); Red Blood Cell (RBC) Count 4.33 mill/uL (4.70-6.10); White Blood Cell (WBC) Count 23.8 thou/uL (4.8-10.8)
[2020-11-23] MEDS: Sodium Chloride 0.9% 1,000 ML IV SCH ×3 (08:11→22:33)
[2020-11-23 08:14] LABS: Actual Bicarbonate (HCO3a) 16.3 mEq/L (22-28); Base Excess (BEa) -8.9 mEq/L (-2.0 to +3.0); CO2 Tension 33.2 mmHg (35.0-45.0); Calcium, Ionized (arterial) 1.16 mmol/L (1.12-1.30); Carboxyhemoglobin (COHb) 0.7 gm% (0.0-3.0); Hemoglobin (Hb) 13.8 g/dL (14.0-18.0); O2 Tension (PaO2), arterial 80.4 mmHg (> 70.0); Potassium - ABG Lab 3.78 mmol/L (3.70-5.30); pH, Arterial 7.31 (7.35-7.45)
[2020-11-23 08:26] LABS: Puncture Site Arterial Line
[2020-11-23] MEDS ORDERED: Fentanyl CADD 100 ML ONE (08:26)
[2020-11-23 08:37] LABS: Band 43 % (5-11); Eosinophils 1 % (0-10); Lymphocytes 1 % (21-51); MDiff Complete? YES; Metamyelocyte 4 % (0-0); Monocytes 8 % (0-10); Neutrophil 43 % (42-75); Platelet Morphology Comment Appears Adequate; Polychromasia SLIGHT = 2-3 cells (100X) (0-2/hpf); Vacuoles MODERATE
[2020-11-23 08:49] LABS: ALT (SGPT) 113 U/L (8-55); AST (SGOT) 56 U/L (5-34); Albumin 2.9 g/dL (3.4-4.8); Alkaline Phosphatase 116 U/L (40-110); Anion Gap 18 mmol/L (10-20); BUN (Urea Nitrogen) 20 mg/dL (8.4-25.7); Bilirubin, Total 1.6 mg/dL (0.2-1.2); Calc. Creatinine Clearance 130 mL/min (70-130); Calcium 7.8 mg/dL (7.8-10.44); Carbon Dioxide 16 mmol/L (23-31); Chloride 106 mmol/L (98-107); Globulin 2.3 g/dL (2.4-3.5); Glucose 174 mg/dL (83-110); Potassium 3.8 mmol/L (3.5-5.1); Protein, Total 5.2 g/dL (5.8-8.1); Sodium 136 mmol/L (136-145)
[2020-11-23] MEDS ORDERED: Heparin 1,000 UNITS/ML VIAL ONE (09:21)
[2020-11-23] MEDS ORDERED: Succinylcholine 200 MG/10 ml SYRINGE FS ONE (10:04)
[2020-11-23] MEDS ORDERED: Ondansetron PF 4 MG/2 ML Vial ONE (10:04)
[2020-11-23] MEDS ORDERED: Rocuronium Bromide 10 MG/ML (10ML VIAL) ONE (10:04)
[2020-11-23] MEDS ORDERED: Vancomycin HCl 750 MG in Sodium Chloride 0.9% 250 ML 250 ML IVPB SCH (10:15)
[2020-11-23] MEDS ORDERED: VANCOMYCIN 1.75 GM/350 ML BAG IVPB SCH ×2 (11:00→22:00)
[2020-11-23] MEDS: Heparin 5,000 UNITS/ML VIAL SC SCH ×3 (14:21→22:28)
[2020-11-23] MEDS ORDERED: Hydrocortisone Sod Succ/PF 100 mg/2 ml Vial IVP SCH (16:00)
[2020-11-23] MEDS: Morphine 2 MG/ML VIAL SLOW IVP PRN (16:47)
[2020-11-23] MEDS: Hydrocortisone Sod Succ/PF 100 mg/2 ml Vial IVP SCH (21:00)
[2020-11-23] MEDS: VANCOMYCIN 1.75 GM/350 ML BAG 1.75 GM in Premix Bag 1 BAG IVPB SCH (22:34)
[2020-11-24 04:07] LABS: Anion Gap 14 mmol/L (10-20); BUN (Urea Nitrogen) 20 mg/dL (8.4-25.7); Calc. Creatinine Clearance 210 mL/min (70-130); Calcium 7.8 mg/dL (7.8-10.44); Carbon Dioxide 19 mmol/L (23-31); Chloride 109 mmol/L (98-107); Glucose 136 mg/dL (83-110); Potassium 3.8 mmol/L (3.5-5.1); Sodium 138 mmol/L (136-145)
[2020-11-24] MEDS: Cefepime 2 GM in Sodium Chloride 0.9% 100 ML IVPB SCH ×2 (04:08→17:23)
[2020-11-24 04:30] LABS: Band 50 % (5-11); Hemoglobin 11.8 g/dL (14.0-18.0); Lymphocytes 2 % (21-51); MDiff Complete? YES; Mean Corpuscular HGB CONC 32.5 g/dL (32.0-36.0); Mean Corpuscular Hemoglobin 31.5 pg (27.0-31.0); Monocytes 2 % (0-10); Neutrophil 46 % (42-75); Platelet Count 106 thou/uL (130-400); Platelet Morphology Comment Appears Decreased; RBC Distribution Width 15.3 % (11.5-14.5); Red Blood Cell (RBC) Count 3.73 mill/uL (4.70-6.10); White Blood Cell (WBC) Count 22.9 thou/uL (4.8-10.8)
[2020-11-24] MEDS: Morphine 2 MG/ML VIAL SLOW IVP PRN ×5 (04:56→18:23)
[2020-11-24] MEDS: Sodium Chloride 0.9% 1,000 ML IV SCH ×2 (05:54→16:37)
[2020-11-24] MEDS: Heparin 5,000 UNITS/ML VIAL SC SCH ×3 (09:53→19:57)
[2020-11-24] MEDS: VANCOMYCIN 1.75 GM/350 ML BAG 1.75 GM in Premix Bag 1 BAG IVPB SCH ×2 (09:53→22:52)
[2020-11-24] MEDS: Hydrocortisone Sod Succ/PF 100 mg/2 ml Vial IVP SCH ×2 (09:53→16:37)
[2020-11-24] MEDS: HumaLOG 300 UNITS/3 ML VIAL SC PRN (11:51)
[2020-11-24] MEDS: traZODone HCl 50 MG TAB PO SCH (19:56)
[2020-11-24 22:32] LABS: Vancomycin, Trough 22.3 ug/mL
[2020-11-24] MEDS ORDERED: Acetaminophen 325 MG TAB ONE (23:09)
[2020-11-24] MEDS: Acetaminophen 325 MG TAB PO PRN (23:44)
[2020-11-25] MEDS: Cefepime 2 GM in Sodium Chloride 0.9% 100 ML IVPB SCH ×3 (04:01→20:58)
[2020-11-25] MEDS ORDERED: Vancomycin HCl 1.5 GM in Sodium Chloride 0.9% 250 ML 300 ML IVPB SCH (05:00)
[2020-11-25] MEDS: Acetaminophen 325 MG TAB PO PRN ×2 (06:11→17:41)
[2020-11-25 09:14] LABS: ALT (SGPT) 67 U/L (8-55); AST (SGOT) 30 U/L (5-34); Albumin 2.7 g/dL (3.4-4.8); Alkaline Phosphatase 91 U/L (40-110); Anion Gap 13 mmol/L (10-20); BUN (Urea Nitrogen) 17 mg/dL (8.4-25.7); Bilirubin, Total 0.5 mg/dL (0.2-1.2); Calc. Creatinine Clearance 206 mL/min (70-130); Calcium 7.9 mg/dL (7.8-10.44); Carbon Dioxide 19 mmol/L (23-31); Chloride 109 mmol/L (98-107); Globulin 2.3 g/dL (2.4-3.5); Glucose 88 mg/dL (83-110); Potassium 3.3 mmol/L (3.5-5.1); Sodium 138 mmol/L (136-145)
[2020-11-25 09:34] LABS: #Eosinphils 0.1 thou/uL (0.0-0.7); #Lymphocytes 1.3 thou/uL (1.20-3.40); #Monocytes 0.7 thou/uL (0.11-0.59); #Neutrophils 15.3 thou/uL (1.40-6.50); %Basophils 0.1 % (0.0-1.0); %Eosinophils 0.4 % (0.0-10.0); %Lymphocytes 7.5 % (21.0-51.0); %Monocytes 4.1 % (0.0-10.0); Band 23 % (5-11); Hemoglobin 12.9 g/dL (14.0-18.0); Lymphocytes 7 % (21-51); MDiff Complete? YES; Mean Corpuscular HGB CONC 33.9 g/dL (32.0-36.0); Mean Corpuscular Hemoglobin 33.4 pg (27.0-31.0); Mean Corpuscular Volume 98.6 fL (78.0-98.0); Mean Platelet Volume 8.5 fL (7.4-10.4); Monocytes 2 % (0-10); Neutrophil 67 % (42-75); Platelet Count 37 thou/uL (130-400); Platelet Morphology Comment Appears Decreased; Polychromasia SLIGHT = 2-3 cells (100X) (0-2/hpf); RBC Distribution Width 14.9 % (11.5-14.5); Reactive Lymphocytes 1 % (0-10); Red Blood Cell (RBC) Count 3.85 mill/uL (4.70-6.10); White Blood Cell (WBC) Count 17.4 thou/uL (4.8-10.8)
[2020-11-25] MEDS: Rosuvastatin 20 MG TAB PO SCH (10:04)
[2020-11-25] MEDS: Heparin 5,000 UNITS/ML VIAL SC SCH ×4 (10:05→19:57)
[2020-11-25] MEDS: Calcium Carbonate 500 MG TAB PO SCH (10:05)
[2020-11-25] MEDS: Tamsulosin HCl 0.4 MG CAP PO SCH (10:05)
[2020-11-25] MEDS: predniSONE 20 MG TAB PO SCH (10:05)
[2020-11-25] MEDS: Morphine 2 MG/ML VIAL SLOW IVP PRN (14:46)
[2020-11-25] MEDS: Mag-Al 1200 mg/1200 mg/30 ML UDCUP PO PRN (15:14)
[2020-11-25] MEDS: Calcium Carbonate 500 MG ChewTAB PO PRN (15:14)
[2020-11-25] MEDS ORDERED: Ondansetron PF 4 MG/2 ML Vial IVP PRN (16:00)
[2020-11-25] MEDS ORDERED: Vancomycin 1.5 GRAM/300 ML BAG 1.5 GM in Premix Bag 1 BAG IVPB SCH (17:00)
[2020-11-25] MEDS: traZODone HCl 50 MG TAB PO SCH (20:00)
[2020-11-26] MEDS: Calcium Carbonate 500 MG ChewTAB PO PRN (02:31)
[2020-11-26] MEDS: Acetaminophen 325 MG TAB PO PRN ×2 (02:32→12:12)
[2020-11-26] MEDS: Mag-Al 1200 mg/1200 mg/30 ML UDCUP PO PRN ×2 (02:32→20:08)
[2020-11-26] MEDS: Cefepime 2 GM in Sodium Chloride 0.9% 100 ML IVPB SCH ×3 (05:37→22:03)
[2020-11-26 05:48] LABS: ALT (SGPT) 70 U/L (8-55); AST (SGOT) 31 U/L (5-34); Albumin 2.8 g/dL (3.4-4.8); Alkaline Phosphatase 103 U/L (40-110); Anion Gap 12 mmol/L (10-20); BUN (Urea Nitrogen) 14 mg/dL (8.4-25.7); Bilirubin, Total 0.5 mg/dL (0.2-1.2); Calc. Creatinine Clearance 219 mL/min (70-130); Calcium 8.1 mg/dL (7.8-10.44); Carbon Dioxide 21 mmol/L (23-31); Chloride 107 mmol/L (98-107); Globulin 2.5 g/dL (2.4-3.5); Glucose 90 mg/dL (83-110); Potassium 3.4 mmol/L (3.5-5.1); Protein, Total 5.3 g/dL (5.8-8.1); Sodium 137 mmol/L (136-145)
[2020-11-26 05:50] LABS: #Eosinphils 0.1 thou/uL (0.0-0.7); #Lymphocytes 1.2 thou/uL (1.20-3.40); #Monocytes 0.4 thou/uL (0.11-0.59); #Neutrophils 9.7 thou/uL (1.40-6.50); %Basophils 0.3 % (0.0-1.0); %Eosinophils 0.7 % (0.0-10.0); %Lymphocytes 10.5 % (21.0-51.0); %Monocytes 3.3 % (0.0-10.0); %Neutrophils 85.1 % (42.0-75.0); Hemoglobin 12.9 g/dL (14.0-18.0); Mean Corpuscular HGB CONC 32.5 g/dL (32.0-36.0); Mean Corpuscular Hemoglobin 31.1 pg (27.0-31.0); Mean Corpuscular Volume 95.6 fL (78.0-98.0); Platelet Count 73 thou/uL (130-400); Platelet Morphology Comment Appears Decreased; RBC Distribution Width 14.7 % (11.5-14.5); Red Blood Cell (RBC) Count 4.15 mill/uL (4.70-6.10); White Blood Cell (WBC) Count 11.3 thou/uL (4.8-10.8)
[2020-11-26] MEDS: Rosuvastatin 20 MG TAB PO SCH (08:45)
[2020-11-26] MEDS: predniSONE 20 MG TAB PO SCH (08:45)
[2020-11-26] MEDS: Calcium Carbonate 500 MG TAB PO SCH (08:45)
[2020-11-26] MEDS: Tamsulosin HCl 0.4 MG CAP PO SCH (08:45)
[2020-11-26] MEDS: Heparin 5,000 UNITS/ML VIAL SC SCH ×3 (08:50→20:10)
[2020-11-26] MEDS ORDERED: Bisacodyl 10 MG SUPP PR PRN (10:29)
[2020-11-26] MEDS: Morphine 2 MG/ML VIAL SLOW IVP PRN ×2 (13:38→20:09)
[2020-11-26] MEDS: traZODone HCl 50 MG TAB PO SCH (20:09)
[2020-11-27] MEDS: Acetaminophen 325 MG TAB PO PRN (04:58)
[2020-11-27] MEDS: Cefepime 2 GM in Sodium Chloride 0.9% 100 ML IVPB SCH ×3 (04:59→20:36)
[2020-11-27 05:04] LABS: #Eosinphils 0.1 thou/uL (0.0-0.7); #Lymphocytes 1.2 thou/uL (1.20-3.40); #Monocytes 0.3 thou/uL (0.11-0.59); #Neutrophils 5.9 thou/uL (1.40-6.50); %Basophils 0.2 % (0.0-1.0); %Eosinophils 1.8 % (0.0-10.0); %Lymphocytes 16.3 % (21.0-51.0); %Monocytes 4.5 % (0.0-10.0); %Neutrophils 77.2 % (42.0-75.0); Hemoglobin 11.9 g/dL (14.0-18.0); Mean Corpuscular HGB CONC 32.5 g/dL (32.0-36.0); Mean Corpuscular Hemoglobin 30.6 pg (27.0-31.0); Mean Platelet Volume 7.1 fL (7.4-10.4); Platelet Count 92 thou/uL (130-400); RBC Distribution Width 14.5 % (11.5-14.5); Red Blood Cell (RBC) Count 3.88 mill/uL (4.70-6.10); White Blood Cell (WBC) Count 7.6 thou/uL (4.8-10.8)
[2020-11-27 05:21] LABS: ALT (SGPT) 56 U/L (8-55); AST (SGOT) 19 U/L (5-34); Albumin 2.8 g/dL (3.4-4.8); Alkaline Phosphatase 91 U/L (40-110); Anion Gap 7 mmol/L (10-20); BUN (Urea Nitrogen) 14 mg/dL (8.4-25.7); Bilirubin, Total 0.5 mg/dL (0.2-1.2); Calc. Creatinine Clearance 219 mL/min (70-130); Calcium 8.2 mg/dL (7.8-10.44); Carbon Dioxide 31 mmol/L (23-31); Chloride 104 mmol/L (98-107); Globulin 2.4 g/dL (2.4-3.5); Glucose 105 mg/dL (83-110); Potassium 3.3 mmol/L (3.5-5.1); Protein, Total 5.2 g/dL (5.8-8.1); Sodium 139 mmol/L (136-145)
[2020-11-27] MEDS: predniSONE 20 MG TAB PO SCH (09:22)
[2020-11-27] MEDS: Rosuvastatin 20 MG TAB PO SCH (09:23)
[2020-11-27] MEDS: Calcium Carbonate 500 MG TAB PO SCH (09:23)
[2020-11-27] MEDS: Heparin 5,000 UNITS/ML VIAL SC SCH ×2 (09:23→20:36)
[2020-11-27] MEDS: Tamsulosin HCl 0.4 MG CAP PO SCH (09:23)
[2020-11-27] MEDS: Morphine 2 MG/ML VIAL SLOW IVP PRN (16:02)
[2020-11-27] MEDS: traZODone HCl 50 MG TAB PO SCH (20:36)
[2020-11-28] MEDS: Acetaminophen 325 MG TAB PO PRN ×2 (02:44→20:05)
[2020-11-28] MEDS: Cefepime 2 GM in Sodium Chloride 0.9% 100 ML IVPB SCH ×3 (05:51→21:04)
[2020-11-28 06:18] LABS: #Basophils 0.1 thou/uL (0.0-0.2); #Eosinphils 0.2 thou/uL (0.0-0.7); #Lymphocytes 1.5 thou/uL (1.20-3.40); #Monocytes 0.5 thou/uL (0.11-0.59); #Neutrophils 5.8 thou/uL (1.40-6.50); %Basophils 0.7 % (0.0-1.0); %Eosinophils 2.2 % (0.0-10.0); %Monocytes 6.3 % (0.0-10.0); %Neutrophils 71.9 % (42.0-75.0); Hemoglobin 12.3 g/dL (14.0-18.0); Mean Corpuscular HGB CONC 34.6 g/dL (32.0-36.0); Mean Corpuscular Hemoglobin 32.7 pg (27.0-31.0); Mean Corpuscular Volume 94.5 fL (78.0-98.0); Platelet Count 103 thou/uL (130-400); RBC Distribution Width 14.4 % (11.5-14.5); Red Blood Cell (RBC) Count 3.75 mill/uL (4.70-6.10)
[2020-11-28 06:42] LABS: ALT (SGPT) 49 U/L (8-55); AST (SGOT) 21 U/L (5-34); Albumin 2.8 g/dL (3.4-4.8); Alkaline Phosphatase 87 U/L (40-110); Anion Gap 11 mmol/L (10-20); BUN (Urea Nitrogen) 11 mg/dL (8.4-25.7); Bilirubin, Total 0.8 mg/dL (0.2-1.2); Calc. Creatinine Clearance 229 mL/min (70-130); Calcium 8.2 mg/dL (7.8-10.44); Carbon Dioxide 29 mmol/L (23-31); Chloride 102 mmol/L (98-107); Globulin 2.4 g/dL (2.4-3.5); Glucose 91 mg/dL (83-110); Potassium 3.3 mmol/L (3.5-5.1); Protein, Total 5.2 g/dL (5.8-8.1); Sodium 139 mmol/L (136-145)
[2020-11-28] MEDS: Rosuvastatin 20 MG TAB PO SCH (07:56)
[2020-11-28] MEDS: Tamsulosin HCl 0.4 MG CAP PO SCH (07:57)
[2020-11-28] MEDS: predniSONE 20 MG TAB PO SCH (07:57)
[2020-11-28] MEDS: Heparin 5,000 UNITS/ML VIAL SC SCH ×2 (07:57→20:04)
[2020-11-28] MEDS: Calcium Carbonate 500 MG TAB PO SCH (11:29)
[2020-11-28] MEDS: HumaLOG 300 UNITS/3 ML VIAL SC PRN (12:58)
[2020-11-28] MEDS: traZODone HCl 50 MG TAB PO SCH (20:06)
[2020-11-29] MEDS: Cefepime 2 GM in Sodium Chloride 0.9% 100 ML IVPB SCH ×3 (05:44→21:01)
[2020-11-29] MEDS: Acetaminophen 325 MG TAB PO PRN ×2 (05:49→23:19)
[2020-11-29 06:09] LABS: #Basophils 0.1 thou/uL (0.0-0.2); #Eosinphils 0.3 thou/uL (0.0-0.7); #Monocytes 0.5 thou/uL (0.11-0.59); #Neutrophils 5.4 thou/uL (1.40-6.50); %Basophils 0.6 % (0.0-1.0); %Eosinophils 3.1 % (0.0-10.0); %Lymphocytes 24.6 % (21.0-51.0); %Neutrophils 65.7 % (42.0-75.0); Hemoglobin 12.9 g/dL (14.0-18.0); Mean Corpuscular Hemoglobin 33.1 pg (27.0-31.0); Mean Corpuscular Volume 94.5 fL (78.0-98.0); Mean Platelet Volume 6.9 fL (7.4-10.4); Platelet Count 121 thou/uL (130-400); RBC Distribution Width 14.4 % (11.5-14.5); White Blood Cell (WBC) Count 8.2 thou/uL (4.8-10.8)
[2020-11-29 06:23] LABS: ALT (SGPT) 52 U/L (8-55); AST (SGOT) 27 U/L (5-34); Albumin 2.9 g/dL (3.4-4.8); Alkaline Phosphatase 86 U/L (40-110); Anion Gap 12 mmol/L (10-20); BUN (Urea Nitrogen) 10 mg/dL (8.4-25.7); Bilirubin, Total 0.8 mg/dL (0.2-1.2); Calc. Creatinine Clearance 234 mL/min (70-130); Calcium 8.3 mg/dL (7.8-10.44); Carbon Dioxide 27 mmol/L (23-31); Chloride 103 mmol/L (98-107); Globulin 2.4 g/dL (2.4-3.5); Glucose 106 mg/dL (83-110); Potassium 3.2 mmol/L (3.5-5.1); Protein, Total 5.3 g/dL (5.8-8.1); Sodium 139 mmol/L (136-145)
[2020-11-29] MEDS: predniSONE 20 MG TAB PO SCH (08:19)
[2020-11-29] MEDS: Tamsulosin HCl 0.4 MG CAP PO SCH (08:19)
[2020-11-29] MEDS: Rosuvastatin 20 MG TAB PO SCH (08:19)
[2020-11-29] MEDS: Heparin 5,000 UNITS/ML VIAL SC SCH ×2 (08:20→20:57)
[2020-11-29] MEDS: Calcium Carbonate 500 MG TAB PO SCH (08:20)
[2020-11-29] MEDS ORDERED: Potassium Chloride 20 MEQ TAB PO SCH (09:00)
[2020-11-29] MEDS: traZODone HCl 50 MG TAB PO SCH (20:57)
[2020-11-30] MEDS: Cefepime 2 GM in Sodium Chloride 0.9% 100 ML IVPB SCH ×3 (06:00→21:00)
[2020-11-30 06:49] LABS: #Eosinphils 0.2 thou/uL (0.0-0.7); #Lymphocytes 1.6 thou/uL (1.20-3.40); #Monocytes 0.5 thou/uL (0.11-0.59); #Neutrophils 7.9 thou/uL (1.40-6.50); %Basophils 0.3 % (0.0-1.0); %Eosinophils 2.1 % (0.0-10.0); %Lymphocytes 15.9 % (21.0-51.0); %Monocytes 5.2 % (0.0-10.0); %Neutrophils 76.6 % (42.0-75.0); Mean Corpuscular HGB CONC 33.7 g/dL (32.0-36.0); Mean Corpuscular Hemoglobin 31.8 pg (27.0-31.0); Mean Corpuscular Volume 94.3 fL (78.0-98.0); Mean Platelet Volume 6.8 fL (7.4-10.4); Platelet Count 154 thou/uL (130-400); RBC Distribution Width 14.4 % (11.5-14.5); Red Blood Cell (RBC) Count 4.08 mill/uL (4.70-6.10); White Blood Cell (WBC) Count 10.4 thou/uL (4.8-10.8)
[2020-11-30 07:12] LABS: ALT (SGPT) 52 U/L (8-55); AST (SGOT) 20 U/L (5-34); Alkaline Phosphatase 85 U/L (40-110); Anion Gap 11 mmol/L (10-20); BUN (Urea Nitrogen) 10 mg/dL (8.4-25.7); Calc. Creatinine Clearance 234 mL/min (70-130); Calcium 8.4 mg/dL (7.8-10.44); Carbon Dioxide 28 mmol/L (23-31); Chloride 103 mmol/L (98-107); Globulin 2.3 g/dL (2.4-3.5); Glucose 92 mg/dL (83-110); Potassium 3.1 mmol/L (3.5-5.1); Protein, Total 5.3 g/dL (5.8-8.1); Sodium 139 mmol/L (136-145)
[2020-11-30] MEDS ORDERED: Potassium Chloride 20 MEQ TAB PO SCH (07:45)
[2020-11-30] MEDS: Rosuvastatin 20 MG TAB PO SCH (08:05)
[2020-11-30] MEDS: Tamsulosin HCl 0.4 MG CAP PO SCH (08:06)
[2020-11-30] MEDS: predniSONE 20 MG TAB PO SCH (08:06)
[2020-11-30] MEDS: Calcium Carbonate 500 MG TAB PO SCH (08:06)
[2020-11-30] MEDS: Heparin 5,000 UNITS/ML VIAL SC SCH ×2 (08:07→20:44)
[2020-11-30] MEDS: Acetaminophen 325 MG TAB PO PRN (18:01)
[2020-11-30] MEDS ORDERED: Ketorolac Tromethamine 30 MG/ML VIAL IVP SCH (18:30)
[2020-11-30] MEDS: Morphine 2 MG/ML VIAL SLOW IVP PRN (20:40)
[2020-11-30] MEDS: traZODone HCl 50 MG TAB PO SCH (20:44)
[2020-12-01] MEDS ORDERED: Fentanyl 100 MCG/2 ML VIAL SLOW IVP SCH (00:45)
[2020-12-01] MEDS ORDERED: Vancomycin HCl 25 MG/ML Oral PO SCH (00:45)
[2020-12-01] MEDS: Morphine 2 MG/ML VIAL SLOW IVP PRN ×4 (04:31→22:09)
[2020-12-01] MEDS: Acetaminophen 325 MG TAB PO PRN ×2 (04:46→20:47)
[2020-12-01] MEDS: Cefepime 2 GM in Sodium Chloride 0.9% 100 ML IVPB SCH ×3 (05:00→22:09)
[2020-12-01] MEDS: Vancomycin HCl 25 MG/ML Oral PO SCH ×3 (05:00→17:52)
[2020-12-01 07:22] LABS: #Eosinphils 0.2 thou/uL (0.0-0.7); #Lymphocytes 0.8 thou/uL (1.20-3.40); #Monocytes 0.8 thou/uL (0.11-0.59); #Neutrophils 15.2 thou/uL (1.40-6.50); %Basophils 0.1 % (0.0-1.0); %Eosinophils 0.9 % (0.0-10.0); %Lymphocytes 4.8 % (21.0-51.0); %Monocytes 4.5 % (0.0-10.0); %Neutrophils 89.7 % (42.0-75.0); Hemoglobin 13.6 g/dL (14.0-18.0); Mean Corpuscular HGB CONC 31.9 g/dL (32.0-36.0); Mean Corpuscular Hemoglobin 30.8 pg (27.0-31.0); Mean Corpuscular Volume 96.4 fL (78.0-98.0); Mean Platelet Volume 6.2 fL (7.4-10.4); Platelet Count 150 thou/uL (130-400); RBC Distribution Width 14.8 % (11.5-14.5); Red Blood Cell (RBC) Count 4.41 mill/uL (4.70-6.10); White Blood Cell (WBC) Count 16.9 thou/uL (4.8-10.8)
[2020-12-01 07:38] LABS: ALT (SGPT) 41 U/L (8-55); AST (SGOT) 14 U/L (5-34); Alkaline Phosphatase 88 U/L (40-110); Anion Gap 12 mmol/L (10-20); BUN (Urea Nitrogen) 10 mg/dL (8.4-25.7); Bilirubin, Total 1.3 mg/dL (0.2-1.2); Calc. Creatinine Clearance 219 mL/min (70-130); Calcium 8.4 mg/dL (7.8-10.44); Carbon Dioxide 23 mmol/L (23-31); Chloride 104 mmol/L (98-107); Globulin 2.4 g/dL (2.4-3.5); Glucose 110 mg/dL (83-110); Potassium 3.2 mmol/L (3.5-5.1); Protein, Total 5.4 g/dL (5.8-8.1); Sodium 136 mmol/L (136-145)
[2020-12-01] MEDS: Heparin 5,000 UNITS/ML VIAL SC SCH ×2 (07:59→20:48)
[2020-12-01] MEDS: predniSONE 20 MG TAB PO SCH (07:59)
[2020-12-01] MEDS: Saccharomyces boulardii 250 MG CAP PO SCH (08:00)
[2020-12-01] MEDS: Rosuvastatin 20 MG TAB PO SCH (08:00)
[2020-12-01] MEDS: Dicyclomine 10 MG CAP PO SCH ×4 (08:00→20:47)
[2020-12-01] MEDS: Tamsulosin HCl 0.4 MG CAP PO SCH (08:00)
[2020-12-01] MEDS: Calcium Carbonate 500 MG TAB PO SCH (08:01)
[2020-12-01] MEDS ORDERED: Iopamidol 370 76% 100 ML VIAL ONE (13:52)
[2020-12-01] MEDS: traZODone HCl 50 MG TAB PO SCH (20:48)
[2020-12-01] MEDS ORDERED: Potassium Chloride 20 MEQ in Premix Bag 1 BAG IVPB SCH (23:59)
[2020-12-02] MEDS: Vancomycin HCl 25 MG/ML Oral PO SCH ×5 (00:53→23:35)
[2020-12-02] MEDS: Morphine 2 MG/ML VIAL SLOW IVP PRN (05:42)
[2020-12-02] MEDS: Cefepime 2 GM in Sodium Chloride 0.9% 100 ML IVPB SCH ×3 (05:42→22:23)
[2020-12-02 08:04] LABS: Albumin 2.9 g/dL (3.4-4.8); Anion Gap 12 mmol/L (10-20); BUN (Urea Nitrogen) 9 mg/dL (8.4-25.7); Bilirubin, Total 1.1 mg/dL (0.2-1.2); Calc. Creatinine Clearance 229 mL/min (70-130); Calcium 8.3 mg/dL (7.8-10.44); Carbon Dioxide 24 mmol/L (23-31); Chloride 106 mmol/L (98-107); Globulin 2.6 g/dL (2.4-3.5); Glucose 98 mg/dL (83-110); Potassium 3.6 mmol/L (3.5-5.1); Protein, Total 5.5 g/dL (5.8-8.1); Sodium 138 mmol/L (136-145)
[2020-12-02 08:05] LABS: ALT (SGPT) 31 U/L (8-55); AST (SGOT) 12 U/L (5-34); Alkaline Phosphatase 79 U/L (40-110)
[2020-12-02] MEDS: Saccharomyces boulardii 250 MG CAP PO SCH (08:47)
[2020-12-02] MEDS: predniSONE 20 MG TAB PO SCH (08:47)
[2020-12-02] MEDS: Calcium Carbonate 500 MG TAB PO SCH (08:47)
[2020-12-02] MEDS: Rosuvastatin 20 MG TAB PO SCH (08:48)
[2020-12-02] MEDS: Tamsulosin HCl 0.4 MG CAP PO SCH (08:48)
[2020-12-02] MEDS: Dicyclomine 10 MG CAP PO SCH ×4 (08:48→19:53)
[2020-12-02] MEDS: Heparin 5,000 UNITS/ML VIAL SC SCH ×2 (08:48→19:53)
[2020-12-02 08:56] LABS: Band 13 % (5-11); Eosinophils 3 % (0-10); Hemoglobin 13.3 g/dL (14.0-18.0); Lymphocytes 9 % (21-51); MDiff Complete? YES; Mean Corpuscular Hemoglobin 31.7 pg (27.0-31.0); Mean Corpuscular Volume 96.1 fL (78.0-98.0); Mean Platelet Volume 6.6 fL (7.4-10.4); Monocytes 2 % (0-10); Neutrophil 73 % (42-75); Ovalocytes SLIGHT = 2-5 cells (100X) (0-1/hpf); Platelet Count 141 thou/uL (130-400); Platelet Morphology Comment Appears Adequate; RBC Distribution Width 14.6 % (11.5-14.5); Red Blood Cell (RBC) Count 4.21 mill/uL (4.70-6.10); White Blood Cell (WBC) Count 15.9 thou/uL (4.8-10.8)
[2020-12-02] MEDS: HumaLOG 300 UNITS/3 ML VIAL SC PRN ×2 (12:13→16:30)
[2020-12-02] MEDS: traZODone HCl 50 MG TAB PO SCH (19:52)
[2020-12-02] MEDS: Acetaminophen 325 MG TAB PO PRN (22:24)
[2020-12-02 22:27] LABS: SARS-CoV-2 PCR by NAA Not Detected (NotDetected)
[2020-12-03] MEDS: Morphine 2 MG/ML VIAL SLOW IVP PRN (00:56)
[2020-12-03] MEDS: Cefepime 2 GM in Sodium Chloride 0.9% 100 ML IVPB SCH ×2 (05:37→12:50)
[2020-12-03] MEDS: Vancomycin HCl 25 MG/ML Oral PO SCH ×3 (05:37→17:48)
[2020-12-03 07:10] LABS: #Eosinphils 0.1 thou/uL (0.0-0.7); #Lymphocytes 1.1 thou/uL (1.20-3.40); #Monocytes 0.5 thou/uL (0.11-0.59); #Neutrophils 12.9 thou/uL (1.40-6.50); %Basophils 0.2 % (0.0-1.0); %Eosinophils 0.9 % (0.0-10.0); %Lymphocytes 7.7 % (21.0-51.0); %Monocytes 3.5 % (0.0-10.0); %Neutrophils 87.8 % (42.0-75.0); Hemoglobin 12.7 g/dL (14.0-18.0); Mean Corpuscular HGB CONC 32.9 g/dL (32.0-36.0); Mean Corpuscular Hemoglobin 31.2 pg (27.0-31.0); Mean Corpuscular Volume 94.8 fL (78.0-98.0); Mean Platelet Volume 6.7 fL (7.4-10.4); Platelet Count 145 thou/uL (130-400); RBC Distribution Width 14.5 % (11.5-14.5); Red Blood Cell (RBC) Count 4.08 mill/uL (4.70-6.10); White Blood Cell (WBC) Count 14.7 thou/uL (4.8-10.8)
[2020-12-03 07:30] LABS: ALT (SGPT) 25 U/L (8-55); AST (SGOT) 10 U/L (5-34); Albumin 2.8 g/dL (3.4-4.8); Alkaline Phosphatase 80 U/L (40-110); Anion Gap 11 mmol/L (10-20); BUN (Urea Nitrogen) 10 mg/dL (8.4-25.7); Bilirubin, Total 0.8 mg/dL (0.2-1.2); Calc. Creatinine Clearance 229 mL/min (70-130); Calcium 8.1 mg/dL (7.8-10.44); Carbon Dioxide 22 mmol/L (23-31); Chloride 106 mmol/L (98-107); Globulin 2.5 g/dL (2.4-3.5); Glucose 115 mg/dL (83-110); Potassium 3.2 mmol/L (3.5-5.1); Protein, Total 5.3 g/dL (5.8-8.1); Sodium 136 mmol/L (136-145)
[2020-12-03] MEDS: predniSONE 20 MG TAB PO SCH (08:03)
[2020-12-03] MEDS: Calcium Carbonate 500 MG TAB PO SCH (08:03)
[2020-12-03] MEDS: Dicyclomine 10 MG CAP PO SCH ×4 (08:03→20:12)
[2020-12-03] MEDS: Rosuvastatin 20 MG TAB PO SCH (08:04)
[2020-12-03] MEDS: Saccharomyces boulardii 250 MG CAP PO SCH (08:04)
[2020-12-03] MEDS: Heparin 5,000 UNITS/ML VIAL SC SCH ×2 (08:04→20:12)
[2020-12-03] MEDS: Tamsulosin HCl 0.4 MG CAP PO SCH (08:04)
[2020-12-03] MEDS ORDERED: Potassium Chloride 40 MEQ in Premix Bag 1 BAG IVPB SCH (08:15)
[2020-12-03] MEDS: Potassium Chloride 20 MEQ in Premix Bag 1 BAG IVPB SCH ×2 (08:57→12:00)
[2020-12-03] MEDS ORDERED: Dexamethasone 20 MG/5 ML VIAL ONE (09:14)
[2020-12-03] MEDS ORDERED: Lidocaine 1% PF 5 ML VIAL ONE (09:14)
[2020-12-03] MEDS ORDERED: PROPOFOL 200 MG/20 ML VIAL ONE (09:14)
[2020-12-03] MEDS ORDERED: PHENYLEPHRINE-NS 100 MCG/ML 10 ML SYRINGE ONE (09:14)
[2020-12-03] MEDS ORDERED: Ondansetron PF 4 MG/2 ML Vial ONE (09:14)
[2020-12-03] MEDS ORDERED: Fentanyl 100 MCG/2 ML VIAL ONE (09:14)
[2020-12-03] MEDS ORDERED: Iothalamate Meglumine 60% 50 ML VIAL FS ONE (09:30)
[2020-12-03] MEDS: Calcium Carbonate 500 MG ChewTAB PO PRN (18:45)
[2020-12-03] MEDS: traZODone HCl 50 MG TAB PO SCH (20:12)
[2020-12-03] MEDS: Acetaminophen 325 MG TAB PO PRN (20:23)
[2020-12-04] MEDS: Vancomycin HCl 25 MG/ML Oral PO SCH ×4 (00:35→16:57)
[2020-12-04 06:20] LABS: #Basophils 0.1 thou/uL (0.0-0.2); #Eosinphils 0.2 thou/uL (0.0-0.7); #Lymphocytes 1.4 thou/uL (1.20-3.40); #Monocytes 0.6 thou/uL (0.11-0.59); #Neutrophils 7.9 thou/uL (1.40-6.50); %Basophils 0.5 % (0.0-1.0); %Eosinophils 2.3 % (0.0-10.0); %Lymphocytes 13.7 % (21.0-51.0); %Monocytes 5.6 % (0.0-10.0); %Neutrophils 77.8 % (42.0-75.0); Hemoglobin 13.6 g/dL (14.0-18.0); Mean Corpuscular HGB CONC 32.1 g/dL (32.0-36.0); Mean Corpuscular Hemoglobin 30.4 pg (27.0-31.0); Mean Corpuscular Volume 94.6 fL (78.0-98.0); Mean Platelet Volume 6.7 fL (7.4-10.4); Platelet Count 171 thou/uL (130-400); RBC Distribution Width 14.6 % (11.5-14.5); Red Blood Cell (RBC) Count 4.48 mill/uL (4.70-6.10); White Blood Cell (WBC) Count 10.1 thou/uL (4.8-10.8)
[2020-12-04 06:21] LABS: ALT (SGPT) 23 U/L (8-55); AST (SGOT) 21 U/L (5-34); Albumin 2.8 g/dL (3.4-4.8); Alkaline Phosphatase 95 U/L (40-110); Anion Gap 17 mmol/L (10-20); BUN (Urea Nitrogen) 9 mg/dL (8.4-25.7); Bilirubin, Total 1.7 mg/dL (0.2-1.2); Calc. Creatinine Clearance 214 mL/min (70-130); Calcium 8.1 mg/dL (7.8-10.44); Carbon Dioxide 17 mmol/L (23-31); Chloride 107 mmol/L (98-107); Globulin 3.1 g/dL (2.4-3.5); Glucose 89 mg/dL (83-110); Potassium 4.6 mmol/L (3.5-5.1); Protein, Total 5.9 g/dL (5.8-8.1); Sodium 136 mmol/L (136-145)
[2020-12-04] MEDS: Saccharomyces boulardii 250 MG CAP PO SCH (08:16)
[2020-12-04] MEDS: predniSONE 20 MG TAB PO SCH (08:16)
[2020-12-04] MEDS: Dicyclomine 10 MG CAP PO SCH ×4 (08:16→21:32)
[2020-12-04] MEDS: Tamsulosin HCl 0.4 MG CAP PO SCH (08:16)
[2020-12-04] MEDS: Heparin 5,000 UNITS/ML VIAL SC SCH ×2 (08:16→21:32)
[2020-12-04] MEDS: Rosuvastatin 20 MG TAB PO SCH (08:16)
[2020-12-04] MEDS: Calcium Carbonate 500 MG TAB PO SCH (08:17)
[2020-12-04] MEDS: HumaLOG 300 UNITS/3 ML VIAL SC PRN (14:10)
[2020-12-04] MEDS: traZODone HCl 50 MG TAB PO SCH (21:32)
[2020-12-04] MEDS: Acetaminophen 325 MG TAB PO PRN (22:32)
[2020-12-05] MEDS: Vancomycin HCl 25 MG/ML Oral PO SCH ×5 (00:36→23:55)
[2020-12-05 05:45] LABS: #Basophils 0.1 thou/uL (0.0-0.2); #Eosinphils 0.2 thou/uL (0.0-0.7); #Lymphocytes 1.6 thou/uL (1.20-3.40); #Monocytes 0.6 thou/uL (0.11-0.59); #Neutrophils 5.6 thou/uL (1.40-6.50); %Basophils 0.7 % (0.0-1.0); %Eosinophils 2.7 % (0.0-10.0); %Lymphocytes 19.7 % (21.0-51.0); %Monocytes 6.9 % (0.0-10.0); Hemoglobin 13.4 g/dL (14.0-18.0); Mean Corpuscular HGB CONC 33.3 g/dL (32.0-36.0); Mean Corpuscular Hemoglobin 31.5 pg (27.0-31.0); Mean Corpuscular Volume 94.6 fL (78.0-98.0); Mean Platelet Volume 6.4 fL (7.4-10.4); Platelet Count 170 thou/uL (130-400); RBC Distribution Width 14.5 % (11.5-14.5); Red Blood Cell (RBC) Count 4.26 mill/uL (4.70-6.10); White Blood Cell (WBC) Count 7.9 thou/uL (4.8-10.8)
[2020-12-05 06:08] LABS: ALT (SGPT) 22 U/L (8-55); AST (SGOT) 10 U/L (5-34); Albumin 2.8 g/dL (3.4-4.8); Alkaline Phosphatase 81 U/L (40-110); Anion Gap 13 mmol/L (10-20); BUN (Urea Nitrogen) 8 mg/dL (8.4-25.7); Bilirubin, Total 0.7 mg/dL (0.2-1.2); Calc. Creatinine Clearance 229 mL/min (70-130); Calcium 8.3 mg/dL (7.8-10.44); Carbon Dioxide 24 mmol/L (23-31); Chloride 105 mmol/L (98-107); Globulin 2.5 g/dL (2.4-3.5); Glucose 102 mg/dL (83-110); Potassium 3.1 mmol/L (3.5-5.1); Protein, Total 5.3 g/dL (5.8-8.1); Sodium 139 mmol/L (136-145)
[2020-12-05] MEDS: Heparin 5,000 UNITS/ML VIAL SC SCH ×2 (08:39→20:30)
[2020-12-05] MEDS: Calcium Carbonate 500 MG TAB PO SCH (08:40)
[2020-12-05] MEDS: Dicyclomine 10 MG CAP PO SCH ×5 (08:40→20:29)
[2020-12-05] MEDS: Rosuvastatin 20 MG TAB PO SCH (08:40)
[2020-12-05] MEDS: Saccharomyces boulardii 250 MG CAP PO SCH (08:40)
[2020-12-05] MEDS: predniSONE 20 MG TAB PO SCH (08:41)
[2020-12-05] MEDS: Tamsulosin HCl 0.4 MG CAP PO SCH (08:42)
[2020-12-05] MEDS: HumaLOG 300 UNITS/3 ML VIAL SC PRN (11:32)
[2020-12-05] MEDS: Calcium Carbonate 500 MG ChewTAB PO PRN (13:22)
[2020-12-05] MEDS: Mag-Al 1200 mg/1200 mg/30 ML UDCUP PO PRN (13:22)
[2020-12-05] MEDS: traZODone HCl 50 MG TAB PO SCH (20:30)
[2020-12-06] MEDS: Vancomycin HCl 25 MG/ML Oral PO SCH ×4 (05:30→23:54)
[2020-12-06 05:59] LABS: #Eosinphils 0.2 thou/uL (0.0-0.7); #Lymphocytes 1.2 thou/uL (1.20-3.40); #Monocytes 0.6 thou/uL (0.11-0.59); #Neutrophils 5.2 thou/uL (1.40-6.50); %Basophils 0.1 % (0.0-1.0); %Eosinophils 2.2 % (0.0-10.0); %Lymphocytes 16.3 % (21.0-51.0); %Monocytes 8.8 % (0.0-10.0); %Neutrophils 72.6 % (42.0-75.0); Hemoglobin 12.6 g/dL (14.0-18.0); Mean Corpuscular HGB CONC 32.8 g/dL (32.0-36.0); Mean Corpuscular Hemoglobin 30.8 pg (27.0-31.0); Mean Platelet Volume 6.5 fL (7.4-10.4); Platelet Count 177 thou/uL (130-400); RBC Distribution Width 14.2 % (11.5-14.5); Red Blood Cell (RBC) Count 4.09 mill/uL (4.70-6.10); White Blood Cell (WBC) Count 7.2 thou/uL (4.8-10.8)
[2020-12-06 06:21] LABS: ALT (SGPT) 21 U/L (8-55); AST (SGOT) 8 U/L (5-34); Albumin 2.7 g/dL (3.4-4.8); Alkaline Phosphatase 74 U/L (40-110); Anion Gap 11 mmol/L (10-20); BUN (Urea Nitrogen) 11 mg/dL (8.4-25.7); Bilirubin, Total 0.5 mg/dL (0.2-1.2); Calc. Creatinine Clearance 198 mL/min (70-130); Calcium 8.1 mg/dL (7.8-10.44); Carbon Dioxide 24 mmol/L (23-31); Chloride 106 mmol/L (98-107); Globulin 2.5 g/dL (2.4-3.5); Glucose 138 mg/dL (83-110); Potassium 3.2 mmol/L (3.5-5.1); Protein, Total 5.2 g/dL (5.8-8.1); Sodium 138 mmol/L (136-145)
[2020-12-06] MEDS: Calcium Carbonate 500 MG TAB PO SCH (09:21)
[2020-12-06] MEDS: Tamsulosin HCl 0.4 MG CAP PO SCH (09:21)
[2020-12-06] MEDS: Dicyclomine 10 MG CAP PO SCH ×4 (09:22→21:23)
[2020-12-06] MEDS: Rosuvastatin 20 MG TAB PO SCH (09:22)
[2020-12-06] MEDS: Heparin 5,000 UNITS/ML VIAL SC SCH ×2 (09:22→21:23)
[2020-12-06] MEDS: Saccharomyces boulardii 250 MG CAP PO SCH (09:22)
[2020-12-06] MEDS: predniSONE 20 MG TAB PO SCH (09:22)
[2020-12-06] MEDS ORDERED: Potassium Chloride 20 MEQ TAB PO SCH (10:00)
[2020-12-06] MEDS: HumaLOG 300 UNITS/3 ML VIAL SC PRN ×2 (11:46→17:21)
[2020-12-06] MEDS: Morphine 2 MG/ML VIAL SLOW IVP PRN (15:41)
[2020-12-06] MEDS: traZODone HCl 50 MG TAB PO SCH (21:24)
[2020-12-07] MEDS: Vancomycin HCl 25 MG/ML Oral PO SCH ×2 (05:27→11:58)
[2020-12-07 06:10] LABS: #Eosinphils 0.2 thou/uL (0.0-0.7); #Lymphocytes 1.6 thou/uL (1.20-3.40); #Monocytes 0.7 thou/uL (0.11-0.59); #Neutrophils 4.6 thou/uL (1.40-6.50); %Basophils 0.4 % (0.0-1.0); %Eosinophils 2.3 % (0.0-10.0); %Lymphocytes 22.9 % (21.0-51.0); %Monocytes 9.5 % (0.0-10.0); %Neutrophils 64.8 % (42.0-75.0); Hemoglobin 13.1 g/dL (14.0-18.0); Mean Corpuscular HGB CONC 32.1 g/dL (32.0-36.0); Mean Corpuscular Hemoglobin 30.4 pg (27.0-31.0); Mean Corpuscular Volume 94.8 fL (78.0-98.0); Mean Platelet Volume 6.3 fL (7.4-10.4); Platelet Count 192 thou/uL (130-400); RBC Distribution Width 14.3 % (11.5-14.5); Red Blood Cell (RBC) Count 4.31 mill/uL (4.70-6.10); White Blood Cell (WBC) Count 7.1 thou/uL (4.8-10.8)
[2020-12-07 06:29] LABS: ALT (SGPT) 23 U/L (8-55); AST (SGOT) 17 U/L (5-34); Albumin 2.9 g/dL (3.4-4.8); Alkaline Phosphatase 70 U/L (40-110); Anion Gap 13 mmol/L (10-20); BUN (Urea Nitrogen) 8 mg/dL (8.4-25.7); Bilirubin, Total 0.5 mg/dL (0.2-1.2); Calc. Creatinine Clearance 224 mL/min (70-130); Calcium 8.5 mg/dL (7.8-10.44); Carbon Dioxide 24 mmol/L (23-31); Chloride 104 mmol/L (98-107); Globulin 2.8 g/dL (2.4-3.5); Glucose 108 mg/dL (83-110); Protein, Total 5.7 g/dL (5.8-8.1); Sodium 137 mmol/L (136-145)
[2020-12-07] MEDS: Heparin 5,000 UNITS/ML VIAL SC SCH (08:15)
[2020-12-07] MEDS: Calcium Carbonate 500 MG TAB PO SCH (08:15)
[2020-12-07] MEDS: predniSONE 20 MG TAB PO SCH (08:15)
[2020-12-07] MEDS: Dicyclomine 10 MG CAP PO SCH ×2 (08:15→12:31)
[2020-12-07] MEDS: Saccharomyces boulardii 250 MG CAP PO SCH (08:16)
[2020-12-07] MEDS: Tamsulosin HCl 0.4 MG CAP PO SCH (08:16)
[2020-12-07] MEDS: Rosuvastatin 20 MG TAB PO SCH (08:16)
[2020-12-07 11:42] VITALS: BP 142/73; TEMP 97.9
[2020-12-07] MEDS: HumaLOG 300 UNITS/3 ML VIAL SC PRN (11:59)
[2020-12-11 03:13] LABS: CA Oxalate Dihydrate 10 % (.); CA Oxalate Monohydrate 85 % (.); Color Brown (.); Stone Weight 30 mg (.)
== END 2020-12-07 13:13 | disposition swing bed (61) | DRG 854 ==
LOC: ERS 20:57 → ERHOLD 11-23 00:33 → CCU 11-23 07:12 → T4-A 11-27 14:15
PROVIDERS: ADMIT Internal Medicine; ATTEND Internal Medicine
PROC: 0T778DZ Dilation of Left Ureter with Intraluminal Device, Via Natural or Artificial Opening Endoscopic (ICD-10-PCS; principal; 2020-11-23)
PROC: 3E033XZ Introduction of Vasopressor into Peripheral Vein, Percutaneous Approach (ICD-10-PCS; 2020-11-23)
PROC: 5A1935Z Respiratory Ventilation, Less than 24 Consecutive Hours (ICD-10-PCS; 2020-11-23)
PROC: 02HV33Z Insertion of Infusion Device into Superior Vena Cava, Percutaneous Approach (ICD-10-PCS; 2020-11-23)
PROC: B518ZZA Fluoroscopy of Superior Vena Cava, Guidance (ICD-10-PCS; 2020-11-23)
PROC: B548ZZA Ultrasonography of Superior Vena Cava, Guidance (ICD-10-PCS; 2020-11-23)
PROC: 0BH17EZ Insertion of Endotracheal Airway into Trachea, Via Natural or Artificial Opening (ICD-10-PCS; 2020-11-23)
PROC: 0TC48ZZ Extirpation of Matter from Left Kidney Pelvis, Via Natural or Artificial Opening Endoscopic (ICD-10-PCS; 2020-12-03)
PROC: 0T778DZ Dilation of Left Ureter with Intraluminal Device, Via Natural or Artificial Opening Endoscopic (ICD-10-PCS; 2020-12-03)
PROC: BT1FZZZ Fluoroscopy of Left Kidney, Ureter and Bladder (ICD-10-PCS; 2020-12-03)
DX: A41.52 Sepsis due to Pseudomonas (principal); A04.72 Enterocolitis due to Clostridium difficile, not specified as recurrent; G61.0 Guillain-Barre syndrome; N13.6 Pyonephrosis; G82.22 Paraplegia, incomplete; E44.0 Moderate protein-calorie malnutrition; K57.32 Diverticulitis of large intestine without perforation or abscess without bleeding; Z20.822 Contact with and (suspected) exposure to COVID-19; A41.51 Sepsis due to Escherichia coli [E. coli]; I25.10 Atherosclerotic heart disease of native coronary artery without angina pectoris; E11.9 Type 2 diabetes mellitus without complications; I10 Essential (primary) hypertension; N40.1 Benign prostatic hyperplasia with lower urinary tract symptoms; R33.8 Other retention of urine; E78.5 Hyperlipidemia, unspecified; N31.8 Other neuromuscular dysfunction of bladder; E78.00 Pure hypercholesterolemia, unspecified; E66.01 Morbid (severe) obesity due to excess calories; E87.6 Hypokalemia; D64.9 Anemia, unspecified; Z95.1 Presence of aortocoronary bypass graft; Z68.35 Body mass index [BMI] 35.0-35.9, adult; Z90.49 Acquired absence of other specified parts of digestive tract; Z86.16 Personal history of COVID-19; Z82.49 Family history of ischemic heart disease and other diseases of the circulatory system; Z99.3 Dependence on wheelchair; Z87.440 Personal history of urinary (tract) infections; Z79.899 Other long term (current) drug therapy; Z79.82 Long term (current) use of aspirin; Z79.84 Long term (current) use of oral hypoglycemic drugs; Z79.52 Long term (current) use of systemic steroids
CPT/HCPCS: 36415; 36416; 36569; 71045; 74177; 74178; 74420; 80048; 80053; 80202; 81001; 81015; 82365; 82805; 83605; 83690; 83735; 85025; 87077; 87086; 87186; 87324; 87449; 87635; 88300; 93005; 94002; 94760; 96374; 96375; 96376; C1751; J0692; J0696; J1100; J1644; J1720; J1815; J1885; J2250; J2270; J2370; J2405; J2704; J3010; J3370; J3480; J3490; J7050; J7512; Q9961; Q9967; U0003; U0005

== ENCOUNTER 2021-02-04 22:15 | Inpatient (IN) | payer MEDICARE, BC ==
[2021-02-04 22:47] VITALS: BMI 33.5
[2021-02-05] MEDS ORDERED: Acetaminophen 325 MG TAB PO PRN (00:40)
[2021-02-05] MEDS ORDERED: Mag-Al Plus 1200 MG/1200 MG/120 MG/30 ML UDCUP PO PRN (00:40)
[2021-02-05] MEDS ORDERED: Polyethylene Glycol 3350 17 GM Packet PO PRN (00:40)
[2021-02-05] MEDS ORDERED: Ondansetron ODT 4 MG TAB PO PRN (00:43)
[2021-02-05] MEDS ORDERED: Dextrose 50% Abboject 50 ML SYRINGE SLOW IVP PRN (01:03)
[2021-02-05] MEDS ORDERED: Dextrose 5% in Water 1,000 ML IV PRN (01:03)
[2021-02-05] MEDS ORDERED: HumaLOG 300 UNITS/3 ML VIAL SC PRN ×2 (01:03)
[2021-02-05] MEDS: Sodium Chloride 0.9% 1,000 ML IV SCH ×2 (05:53→16:17)
[2021-02-05] MEDS: Calcium Carbonate 500 MG TAB PO SCH (08:39)
[2021-02-05] MEDS: Pantoprazole 40 MG VIAL IVP SCH ×2 (08:39→21:55)
[2021-02-05] MEDS: Rosuvastatin 20 MG TAB PO SCH (08:39)
[2021-02-05] MEDS: predniSONE 20 MG TAB PO SCH (08:39)
[2021-02-05] MEDS: Tamsulosin HCl 0.4 MG CAP PO SCH (08:39)
[2021-02-05 17:35] LABS: Band 5 % (5-11); Hemoglobin 9.7 g/dL (14.0-18.0); Lymphocytes 5 % (21-51); MDiff Complete? YES; Mean Corpuscular HGB CONC 33.8 g/dL (32.0-36.0); Mean Corpuscular Hemoglobin 30.6 pg (27.0-31.0); Mean Corpuscular Volume 90.6 fL (78.0-98.0); Mean Platelet Volume 6.7 fL (7.4-10.4); Monocytes 4 % (0-10); Neutrophil 86 % (42-75); Platelet Count 125 thou/uL (130-400); Platelet Morphology Comment Appears Decreased; Polychromasia SLIGHT = 2-3 cells (100X) (0-2/hpf); RBC Distribution Width 14.2 % (11.5-14.5); Red Blood Cell (RBC) Count 3.15 mill/uL (4.70-6.10); White Blood Cell (WBC) Count 11.3 thou/uL (4.8-10.8)
[2021-02-05 17:42] LABS: Anion Gap 12 mmol/L (10-20); BUN (Urea Nitrogen) 24 mg/dL (8.4-25.7); Calc. Creatinine Clearance 162 mL/min (70-130); Calcium 7.3 mg/dL (7.8-10.44); Carbon Dioxide 17 mmol/L (23-31); Chloride 108 mmol/L (98-107); Glucose 179 mg/dL (83-110); Potassium 5.2 mmol/L (3.5-5.1); Sodium 132 mmol/L (136-145)
[2021-02-05 21:16] LABS: Hemoglobin 9.6 g/dL (14.0-18.0)
[2021-02-05] MEDS: traZODone HCl 50 MG TAB PO SCH (21:55)
[2021-02-06 04:22] LABS: SARS-CoV-2 NAA Rapid Test Not Detected (NotDetected)
[2021-02-06] MEDS: Sodium Chloride 0.9% 1,000 ML IV SCH ×2 (05:10→19:59)
[2021-02-06 05:59] LABS: #Lymphocytes 1.4 thou/uL (1.20-3.40); #Monocytes 0.4 thou/uL (0.11-0.59); #Neutrophils 6.9 thou/uL (1.40-6.50); %Basophils 0.1 % (0.0-1.0); %Eosinophils 0.4 % (0.0-10.0); %Lymphocytes 15.7 % (21.0-51.0); %Neutrophils 79.7 % (42.0-75.0); Hemoglobin 8.8 g/dL (14.0-18.0); Mean Corpuscular HGB CONC 34.8 g/dL (32.0-36.0); Mean Corpuscular Hemoglobin 31.3 pg (27.0-31.0); Mean Corpuscular Volume 90.1 fL (78.0-98.0); Mean Platelet Volume 6.3 fL (7.4-10.4); Platelet Count 135 thou/uL (130-400); RBC Distribution Width 14.3 % (11.5-14.5); Red Blood Cell (RBC) Count 2.82 mill/uL (4.70-6.10); White Blood Cell (WBC) Count 8.7 thou/uL (4.8-10.8)
[2021-02-06 06:18] LABS: Anion Gap 8 mmol/L (10-20); BUN (Urea Nitrogen) 19 mg/dL (8.4-25.7); Calc. Creatinine Clearance 183 mL/min (70-130); Calcium 7.5 mg/dL (7.8-10.44); Carbon Dioxide 23 mmol/L (23-31); Chloride 107 mmol/L (98-107); Glucose 84 mg/dL (83-110); Sodium 134 mmol/L (136-145)
[2021-02-06] MEDS ORDERED: Lidocaine 1% PF 5 ML VIAL ONE (09:06)
[2021-02-06] MEDS ORDERED: PROPOFOL 200 MG/20 ML VIAL ONE (09:06)
[2021-02-06] MEDS: Calcium Carbonate 500 MG TAB PO SCH (10:22)
[2021-02-06] MEDS: Rosuvastatin 20 MG TAB PO SCH (10:22)
[2021-02-06] MEDS: Tamsulosin HCl 0.4 MG CAP PO SCH (10:22)
[2021-02-06] MEDS: predniSONE 20 MG TAB PO SCH (10:22)
[2021-02-06] MEDS: Pantoprazole 40 MG VIAL IVP SCH ×2 (10:22→21:13)
[2021-02-06 16:55] LABS: INR-International Normal Ratio 1.2; Prothrombin Time 15.4 sec (12.0-14.7)
[2021-02-06 17:06] LABS: ALT (SGPT) 646 U/L (8-55); AST (SGOT) 489 U/L (5-34); Albumin 2.4 g/dL (3.4-4.8); Alkaline Phosphatase 91 U/L (40-110); Bilirubin, Direct 0.5 mg/dL (0.1-0.3); Bilirubin, Total 0.9 mg/dL (0.2-1.2); Protein, Total 4.2 g/dL (5.8-8.1)
[2021-02-06] MEDS: traZODone HCl 50 MG TAB PO SCH (21:12)
[2021-02-07 07:04] LABS: #Basophils 0.1 thou/uL (0.0-0.2); #Lymphocytes 0.9 thou/uL (1.20-3.40); #Monocytes 0.3 thou/uL (0.11-0.59); #Neutrophils 5.5 thou/uL (1.40-6.50); %Basophils 0.9 % (0.0-1.0); %Eosinophils 0.7 % (0.0-10.0); %Lymphocytes 13.7 % (21.0-51.0); %Monocytes 3.7 % (0.0-10.0); Hemoglobin 8.5 g/dL (14.0-18.0); Mean Corpuscular HGB CONC 34.8 g/dL (32.0-36.0); Mean Corpuscular Hemoglobin 31.6 pg (27.0-31.0); Mean Platelet Volume 6.1 fL (7.4-10.4); Platelet Count 124 thou/uL (130-400); RBC Distribution Width 14.1 % (11.5-14.5); Red Blood Cell (RBC) Count 2.67 mill/uL (4.70-6.10); White Blood Cell (WBC) Count 6.8 thou/uL (4.8-10.8)
[2021-02-07 07:25] LABS: Anion Gap 7 mmol/L (10-20); BUN (Urea Nitrogen) 11 mg/dL (8.4-25.7); Calc. Creatinine Clearance 221 mL/min (70-130); Calcium 6.4 mg/dL (7.8-10.44); Carbon Dioxide 20 mmol/L (23-31); Chloride 113 mmol/L (98-107); Glucose 74 mg/dL (83-110); Potassium 3.4 mmol/L (3.5-5.1); Sodium 137 mmol/L (136-145)
[2021-02-07 08:23] LABS: ALT (SGPT) 530 U/L (8-55); AST (SGOT) 290 U/L (5-34); Albumin 1.9 g/dL (3.4-4.8); Alkaline Phosphatase 77 U/L (40-110); Bilirubin, Direct 0.3 mg/dL (0.1-0.3); Bilirubin, Total 0.7 mg/dL (0.2-1.2); Protein, Total 3.4 g/dL (5.8-8.1)
[2021-02-07] MEDS: predniSONE 20 MG TAB PO SCH (08:37)
[2021-02-07] MEDS: Lactinex Tablet PO SCH (08:37)
[2021-02-07] MEDS: Pantoprazole 40 MG VIAL IVP SCH ×2 (08:37→20:53)
[2021-02-07] MEDS: Calcium Carbonate 500 MG TAB PO SCH (08:37)
[2021-02-07] MEDS: Tamsulosin HCl 0.4 MG CAP PO SCH (08:37)
[2021-02-07] MEDS: Potassium Chloride 20 MEQ TAB PO SCH ×2 (12:25→17:34)
[2021-02-07 15:05] LABS: HBCM Index 0.06 S/CO (0-0.79); HBSAg Index 0.21 S/CO (0-0.99); Hep A IgM AB Non-Reactive (NonReactive); Hep A IgM S/CO 0.07 S/CO (0-0.79); Hep B Surf Ag Non-Reactive S/CO (NonReactive); Hep C IgG Ab Non-Reactive (NonReactive); Hep C Index 0.04 S/CO (0-0.79); Hepatitis B Core IgM Abs Non-Reactive (NonReactive)
[2021-02-07] MEDS: traZODone HCl 50 MG TAB PO SCH (20:52)
[2021-02-08 07:40] LABS: #Eosinphils 0.1 thou/uL (0.0-0.7); #Lymphocytes 1.3 thou/uL (1.20-3.40); #Monocytes 0.4 thou/uL (0.11-0.59); #Neutrophils 5.5 thou/uL (1.40-6.50); %Basophils 0.1 % (0.0-1.0); %Eosinophils 0.8 % (0.0-10.0); %Lymphocytes 17.4 % (21.0-51.0); %Monocytes 5.5 % (0.0-10.0); %Neutrophils 76.2 % (42.0-75.0); Hemoglobin 8.9 g/dL (14.0-18.0); Mean Corpuscular HGB CONC 33.1 g/dL (32.0-36.0); Mean Corpuscular Hemoglobin 30.5 pg (27.0-31.0); Mean Corpuscular Volume 92.2 fL (78.0-98.0); Mean Platelet Volume 6.8 fL (7.4-10.4); Platelet Count 113 thou/uL (130-400); RBC Distribution Width 14.6 % (11.5-14.5); Red Blood Cell (RBC) Count 2.92 mill/uL (4.70-6.10); White Blood Cell (WBC) Count 7.3 thou/uL (4.8-10.8)
[2021-02-08 07:44] LABS: ALT (SGPT) 533 U/L (8-55); AST (SGOT) 153 U/L (5-34); Albumin 2.4 g/dL (3.4-4.8); Alkaline Phosphatase 92 U/L (40-110); Bilirubin, Direct 0.4 mg/dL (0.1-0.3); Bilirubin, Total 0.9 mg/dL (0.2-1.2); Protein, Total 4.2 g/dL (5.8-8.1)
[2021-02-08 07:48] LABS: Anion Gap 10 mmol/L (10-20); BUN (Urea Nitrogen) 11 mg/dL (8.4-25.7); Calc. Creatinine Clearance 175 mL/min (70-130); Calcium 7.8 mg/dL (7.8-10.44); Carbon Dioxide 23 mmol/L (23-31); Chloride 106 mmol/L (98-107); Glucose 91 mg/dL (83-110); Potassium 4.6 mmol/L (3.5-5.1); Sodium 134 mmol/L (136-145)
[2021-02-08] MEDS: Pantoprazole 40 MG VIAL IVP SCH (08:50)
[2021-02-08] MEDS: Tamsulosin HCl 0.4 MG CAP PO SCH (08:50)
[2021-02-08] MEDS: predniSONE 20 MG TAB PO SCH (08:50)
[2021-02-08] MEDS: Calcium Carbonate 500 MG TAB PO SCH (08:50)
[2021-02-08] MEDS: Lactinex Tablet PO SCH (08:50)
[2021-02-08] MEDS: traZODone HCl 50 MG TAB PO SCH (21:42)
[2021-02-08] MEDS: Pantoprazole 40 MG GRANULES PACKET PO SCH (21:43)
[2021-02-09] MEDS: Acyclovir 400 mg Tablet PO SCH ×6 (00:56→22:58)
[2021-02-09 05:36] LABS: #Lymphocytes 1.2 thou/uL (1.20-3.40); #Monocytes 0.4 thou/uL (0.11-0.59); #Neutrophils 6.3 thou/uL (1.40-6.50); %Basophils 0.5 % (0.0-1.0); %Eosinophils 0.6 % (0.0-10.0); %Lymphocytes 15.2 % (21.0-51.0); %Monocytes 4.4 % (0.0-10.0); %Neutrophils 79.3 % (42.0-75.0); Hemoglobin 8.9 g/dL (14.0-18.0); Mean Corpuscular HGB CONC 33.6 g/dL (32.0-36.0); Mean Corpuscular Hemoglobin 31.1 pg (27.0-31.0); Mean Corpuscular Volume 92.7 fL (78.0-98.0); Mean Platelet Volume 6.6 fL (7.4-10.4); Platelet Count 130 thou/uL (130-400); Red Blood Cell (RBC) Count 2.87 mill/uL (4.70-6.10)
[2021-02-09 06:09] LABS: Anion Gap 9 mmol/L (10-20); BUN (Urea Nitrogen) 10 mg/dL (8.4-25.7); Calc. Creatinine Clearance 172 mL/min (70-130); Calcium 8.1 mg/dL (7.8-10.44); Carbon Dioxide 25 mmol/L (23-31); Chloride 105 mmol/L (98-107); Glucose 104 mg/dL (83-110); Sodium 135 mmol/L (136-145)
[2021-02-09] MEDS: Calcium Carbonate 500 MG TAB PO SCH (09:00)
[2021-02-09] MEDS: Tamsulosin HCl 0.4 MG CAP PO SCH (09:00)
[2021-02-09] MEDS: Pantoprazole 40 MG GRANULES PACKET PO SCH ×2 (09:00→20:36)
[2021-02-09] MEDS: predniSONE 20 MG TAB PO SCH (09:00)
[2021-02-09] MEDS: Lactinex Tablet PO SCH (09:00)
[2021-02-09 15:39] LABS: Bacteria/HPF 4+ HPF (None Seen); Bilirubin Negative (Negative); Blood, Urine 2+ (Negative); Clarity Turbid (Clear); Glucose, Urine (Dipstick) 200 mg/dL (Negative); Ketone, Urine Negative (Negative); Leukocyte 500 Leu/uL (Negative); Nitrite Negative (Negative); Protein, Urine (Dipstick) 10 mg/dL (Neg-Trace); RBC/HPF 21-50 HPF (0-3); Specific Gravity, Urine 1.008 (1.002-1.036); Squamous Epithelial 0-3 HPF (0-3); Urobilinogen Normal mg/dL (Less than 2); WBC/HPF Greater than 50 HPF (0-3)
[2021-02-09 15:41] LABS: Urine Culture Reflex Yes Yes
[2021-02-09] MEDS: traZODone HCl 50 MG TAB PO SCH (20:36)
[2021-02-10 05:40] LABS: #Lymphocytes 1.2 thou/uL (1.20-3.40); #Monocytes 0.5 thou/uL (0.11-0.59); #Neutrophils 7.7 thou/uL (1.40-6.50); %Eosinophils 0.3 % (0.0-10.0); %Lymphocytes 12.6 % (21.0-51.0); %Monocytes 4.9 % (0.0-10.0); %Neutrophils 82.2 % (42.0-75.0); Hemoglobin 9.2 g/dL (14.0-18.0); Mean Corpuscular HGB CONC 32.8 g/dL (32.0-36.0); Mean Corpuscular Hemoglobin 31.3 pg (27.0-31.0); Mean Corpuscular Volume 95.2 fL (78.0-98.0); Mean Platelet Volume 6.5 fL (7.4-10.4); Platelet Count 130 thou/uL (130-400); RBC Distribution Width 15.1 % (11.5-14.5); Red Blood Cell (RBC) Count 2.93 mill/uL (4.70-6.10); White Blood Cell (WBC) Count 9.4 thou/uL (4.8-10.8)
[2021-02-10 05:58] LABS: Anion Gap 9 mmol/L (10-20); BUN (Urea Nitrogen) 10 mg/dL (8.4-25.7); Calc. Creatinine Clearance 166 mL/min (70-130); Calcium 8.2 mg/dL (7.8-10.44); Carbon Dioxide 27 mmol/L (23-31); Chloride 103 mmol/L (98-107); Glucose 114 mg/dL (83-110); Potassium 4.3 mmol/L (3.5-5.1); Sodium 135 mmol/L (136-145)
[2021-02-10] MEDS: Acyclovir 400 mg Tablet PO SCH ×4 (08:26→19:55)
[2021-02-10] MEDS: Pantoprazole 40 MG GRANULES PACKET PO SCH ×2 (08:26→19:55)
[2021-02-10] MEDS: Lactinex Tablet PO SCH (08:26)
[2021-02-10] MEDS: predniSONE 20 MG TAB PO SCH (08:26)
[2021-02-10] MEDS: Tamsulosin HCl 0.4 MG CAP PO SCH (08:26)
[2021-02-10] MEDS: Calcium Carbonate 500 MG TAB PO SCH (08:26)
[2021-02-10 15:53] VITALS: TEMP 96.4
[2021-02-10 19:54] VITALS: BP 121/67
[2021-02-10] MEDS: traZODone HCl 50 MG TAB PO SCH (19:55)
== END 2021-02-10 20:23 | disposition swing bed (61) | DRG 380 ==
LOC: 2NO 22:15
PROVIDERS: ADMIT Internal Medicine; ATTEND Internal Medicine
PROC: 0DB48ZX Excision of Esophagogastric Junction, Via Natural or Artificial Opening Endoscopic, Diagnostic (ICD-10-PCS; principal; 2021-02-06)
PROC: 0DB78ZX Excision of Stomach, Pylorus, Via Natural or Artificial Opening Endoscopic, Diagnostic (ICD-10-PCS; 2021-02-06)
PROC: 0T2BX0Z Change Drainage Device in Bladder, External Approach (ICD-10-PCS; 2021-02-09)
DX: K22.11 Ulcer of esophagus with bleeding (principal); R53.2 Functional quadriplegia; K72.00 Acute and subacute hepatic failure without coma; G61.0 Guillain-Barre syndrome; D62 Acute posthemorrhagic anemia; E44.0 Moderate protein-calorie malnutrition; B00.89 Other herpesviral infection; K26.4 Chronic or unspecified duodenal ulcer with hemorrhage; Z20.822 Contact with and (suspected) exposure to COVID-19; I25.10 Atherosclerotic heart disease of native coronary artery without angina pectoris; E11.9 Type 2 diabetes mellitus without complications; N31.9 Neuromuscular dysfunction of bladder, unspecified; Z96.652 Presence of left artificial knee joint; E66.9 Obesity, unspecified; D72.829 Elevated white blood cell count, unspecified; K21.00 Gastro-esophageal reflux disease with esophagitis, without bleeding; R79.89 Other specified abnormal findings of blood chemistry; E78.5 Hyperlipidemia, unspecified; T39.015A Adverse effect of aspirin, initial encounter; K29.70 Gastritis, unspecified, without bleeding; T38.0X5A Adverse effect of glucocorticoids and synthetic analogues, initial encounter; Z88.1 Allergy status to other antibiotic agents; Z88.2 Allergy status to sulfonamides; Z79.899 Other long term (current) drug therapy; Z79.82 Long term (current) use of aspirin; Z79.84 Long term (current) use of oral hypoglycemic drugs; Z79.52 Long term (current) use of systemic steroids; Z95.1 Presence of aortocoronary bypass graft; Z90.49 Acquired absence of other specified parts of digestive tract; Z82.49 Family history of ischemic heart disease and other diseases of the circulatory system; Z68.33 Body mass index [BMI] 33.0-33.9, adult; Z86.010 Personal history of colon polyps; Z74.01 Bed confinement status
CPT/HCPCS: 36415; 36416; 76705; 80048; 80074; 80076; 81001; 83690; 85007; 85025; 85027; 85610; 86850; 86900; 86901; 87077; 87086; 87186; 88305; 88312; 88341; 88342; C9113; J1815; J2704; J7512; U0002

== ENCOUNTER 2021-05-18 10:25 | Day surgery (SDC) | payer MEDICARE, BC ==
[2021-05-17 11:44] VITALS: BMI 33.9
[2021-05-18] MEDS ORDERED: PROPOFOL 200 MG/20 ML VIAL ONE (12:48)
[2021-05-18] MEDS ORDERED: Dexamethasone 20 MG/5 ML VIAL ONE (12:48)
[2021-05-18] MEDS ORDERED: ePHEDrine 50 MG/ML VIAL ONE (12:48)
[2021-05-18 14:35] LABS: ALT (SGPT) 42 U/L (8-55); AST (SGOT) 41 U/L (5-34); Albumin 2.9 g/dL (3.4-4.8); Alkaline Phosphatase 70 U/L (40-110); Anion Gap 15 mmol/L (10-20); BUN (Urea Nitrogen) 14 mg/dL (8.4-25.7); Bilirubin, Total 0.6 mg/dL (0.2-1.2); Calc. Creatinine Clearance 172 mL/min (70-130); Calcium 9.4 mg/dL (7.8-10.44); Carbon Dioxide 17 mmol/L (23-31); Chloride 105 mmol/L (98-107); Glucose 94 mg/dL (83-110); Lipase 8 U/L (8-78); Potassium 4.5 mmol/L (3.5-5.1); Protein, Total 5.9 g/dL (5.8-8.1); Sodium 132 mmol/L (136-145)
[2021-05-18 15:10] LABS: #Eosinphils 0.9 thou/uL (0.0-0.7); #Lymphocytes 1.5 thou/uL (1.20-3.40); #Monocytes 0.3 thou/uL (0.11-0.59); #Neutrophils 7.9 thou/uL (1.40-6.50); %Basophils 0.3 % (0.0-1.0); %Eosinophils 8.7 % (0.0-10.0); %Lymphocytes 13.5 % (21.0-51.0); %Monocytes 3.2 % (0.0-10.0); %Neutrophils 74.2 % (42.0-75.0); Hemoglobin 13.1 g/dL (14.0-18.0); Mean Corpuscular HGB CONC 34.3 g/dL (32.0-36.0); Mean Corpuscular Hemoglobin 32.2 pg (27.0-31.0); Mean Platelet Volume 6.9 fL (7.4-10.4); Platelet Count 166 thou/uL (130-400); RBC Distribution Width 12.7 % (11.5-14.5); Red Blood Cell (RBC) Count 4.08 mill/uL (4.70-6.10); White Blood Cell (WBC) Count 10.7 thou/uL (4.8-10.8)
== END 2021-05-18 16:19 | disposition home or self-care (01) ==
LOC: SDC 10:25
PROVIDERS: ATTEND Internal Medicine Gastroenterology
PROC: 0DB98ZX Excision of Duodenum, Via Natural or Artificial Opening Endoscopic, Diagnostic (ICD-10-PCS; principal; 2021-05-18)
PROC: 0DB78ZX Excision of Stomach, Pylorus, Via Natural or Artificial Opening Endoscopic, Diagnostic (ICD-10-PCS; 2021-05-18)
DX: K29.80 Duodenitis without bleeding (principal); K31.89 Other diseases of stomach and duodenum; K26.9 Duodenal ulcer, unspecified as acute or chronic, without hemorrhage or perforation; K29.40 Chronic atrophic gastritis without bleeding; K44.9 Diaphragmatic hernia without obstruction or gangrene; M19.90 Unspecified osteoarthritis, unspecified site; I25.10 Atherosclerotic heart disease of native coronary artery without angina pectoris; I10 Essential (primary) hypertension; E78.00 Pure hypercholesterolemia, unspecified; G61.0 Guillain-Barre syndrome; E11.9 Type 2 diabetes mellitus without complications; R63.0 Anorexia; Z68.33 Body mass index [BMI] 33.0-33.9, adult; Z79.82 Long term (current) use of aspirin; Z79.84 Long term (current) use of oral hypoglycemic drugs; Z79.899 Other long term (current) drug therapy; Z88.1 Allergy status to other antibiotic agents; Z88.2 Allergy status to sulfonamides; Z95.1 Presence of aortocoronary bypass graft
CPT/HCPCS: 36415; 80053; 82533; 83690; 84443; 85025; 88305; J1100; J2704; J3490

== ENCOUNTER 2021-06-18 00:24 | Emergency (ER) | payer MEDICARE, BC ==
[2021-06-18] MEDS ORDERED: Acetaminophen 325 MG TAB ONE (02:10)
[2021-06-18] MEDS ORDERED: cefTRIAXone\\ROCEPHIN 1 GM VIAL ONE (02:27)
[2021-06-18 08:55] LABS: Clarity Turbid (Clear); Glucose, Urine (Dipstick) 150 mg/dL (Negative); Leukocyte 250 Leu/uL (Negative); Nitrite Negative (Negative); Protein, Urine (Dipstick) 100 mg/dL (Neg-Trace); Specific Gravity, Urine 1.017 (1.002-1.036); pH, Urine 6.5 (5.0-9.0)
[2021-06-18 08:56] LABS: Bacteria/HPF 4+ HPF (None Seen); Bilirubin Negative (Negative); Blood, Urine Negative (Negative); Ketone, Urine Negative (Negative); RBC/HPF 0-3 HPF (0-3); Squamous Epithelial None Seen HPF (0-3); Urobilinogen Normal mg/dL (Less than 2); WBC/HPF Greater than 50 HPF (0-3)
[2021-06-18 10:16] LABS: Anion Gap 16 mmol/L (10-20); BUN (Urea Nitrogen) 27 mg/dL (8.4-25.7); Calc. Creatinine Clearance 0 mL/min (70-130); Calcium 8.5 mg/dL (7.8-10.44); Carbon Dioxide 17 mmol/L (23-31); Chloride 104 mmol/L (98-107); Glucose 123 mg/dL (83-110); Sodium 133 mmol/L (136-145)
[2021-06-18 11:30] LABS: %Neutrophils 91.6 % (42.0-75.0); Hemoglobin 11.9 g/dL (14.0-18.0); Mean Corpuscular HGB CONC 34.2 g/dL (32.0-36.0); Mean Corpuscular Hemoglobin 31.4 pg (27.0-31.0); Mean Corpuscular Volume 91.8 fL (78.0-98.0); Mean Platelet Volume 5.8 fL (7.4-10.4); Platelet Count 142 thou/uL (130-400); RBC Distribution Width 12.5 % (11.5-14.5); White Blood Cell (WBC) Count 11.7 thou/uL (4.8-10.8)
[2021-06-18 11:31] LABS: #Lymphocytes 0.5 thou/uL (1.20-3.40); #Monocytes 0.5 thou/uL (0.11-0.59); #Neutrophils 10.7 thou/uL (1.40-6.50); %Eosinophils 0.2 % (0.0-10.0); %Lymphocytes 3.9 % (21.0-51.0); %Monocytes 4.3 % (0.0-10.0)
== END 2021-06-18 03:35 | disposition home or self-care (01) ==
LOC: ERS 00:24
DX: T83.011A Breakdown (mechanical) of indwelling urethral catheter, initial encounter (principal); N39.0 Urinary tract infection, site not specified
CPT/HCPCS: 80048; 81003; 81015; 85025; 96365; J0696

== ENCOUNTER 2021-07-12 09:16 | Outpatient (CLI) | payer MEDICARE, BC | END 2021-07-12 09:17 | disposition home or self-care (01) | LOC: BICRAD 09:16 | PROVIDERS: ATTEND Urology | DX: N20.0 Calculus of kidney (principal) | CPT/HCPCS: 74018 ==

== ENCOUNTER 2021-07-23 15:20 | Inpatient (IN) | payer MEDICARE, BC ==
[2021-07-23] MEDS ORDERED: cefTRIAXone\\ROCEPHIN 1 GM VIAL ONE (16:12)
[2021-07-23 16:31] LABS: Hemoglobin 10.4 g/dL (14.0-18.0); Mean Corpuscular HGB CONC 33.6 g/dL (32.0-36.0); Mean Corpuscular Hemoglobin 30.7 pg (27.0-31.0); Mean Corpuscular Volume 91.4 fL (78.0-98.0); RBC Distribution Width 13.6 % (11.5-14.5); White Blood Cell (WBC) Count 9.1 thou/uL (4.8-10.8)
[2021-07-23 16:37] LABS: #Basophils 0.1 thou/uL (0.0-0.2); #Lymphocytes 0.4 thou/uL (1.20-3.40); #Monocytes 0.3 thou/uL (0.11-0.59); #Neutrophils 8.3 thou/uL (1.40-6.50); %Basophils 0.8 % (0.0-1.0); %Eosinophils 0.5 % (0.0-10.0); %Monocytes 3.2 % (0.0-10.0); %Neutrophils 91.5 % (42.0-75.0); Platelet Count 94 thou/uL (130-400)
[2021-07-23 16:51] LABS: ALT (SGPT) 172 U/L (8-55); AST (SGOT) 68 U/L (5-34); Albumin 2.6 g/dL (3.4-4.8); Alkaline Phosphatase 85 U/L (40-110); Anion Gap 14 mmol/L (10-20); BUN (Urea Nitrogen) 43 mg/dL (8.4-25.7); Bilirubin, Total 0.6 mg/dL (0.2-1.2); Calc. Creatinine Clearance 0 mL/min (70-130); Calcium 9.4 mg/dL (7.8-10.44); Carbon Dioxide 20 mmol/L (23-31); Chloride 107 mmol/L (98-107); Globulin 2.2 g/dL (2.4-3.5); Glucose 134 mg/dL (83-110); Potassium 5.1 mmol/L (3.5-5.1); Protein, Total 4.8 g/dL (5.8-8.1); Sodium 136 mmol/L (136-145)
[2021-07-23 17:07] LABS: Bacteria/HPF 4+ HPF (None Seen); Bilirubin Negative (Negative); Blood, Urine 3+ (Negative); Clarity Extra Turbid (Clear); Glucose, Urine (Dipstick) Normal (Negative); Ketone, Urine Negative (Negative); Leukocyte 500 Leu/uL (Negative); Nitrite Negative (Negative); Protein, Urine (Dipstick) 600 mg/dL (Neg-Trace); RBC/HPF Greater than 50 HPF (0-3); Specific Gravity, Urine 1.021 (1.002-1.036); Squamous Epithelial 0-3 HPF (0-3); Urobilinogen Normal mg/dL (Less than 2); WBC/HPF Greater than 50 HPF (0-3)
[2021-07-23] MEDS ORDERED: Vancomycin 1 GM/200 ML BAG ONE (17:28)
[2021-07-23] MEDS ORDERED: Hydrocortisone Sod Succ/PF 100 mg/2 ml Vial ONE (17:41)
[2021-07-23] MEDS ORDERED: Ondansetron PF 4 MG/2 ML Vial IVP PRN (19:01)
[2021-07-23] MEDS ORDERED: HumaLOG 300 UNITS/3 ML VIAL SC PRN (19:12)
[2021-07-23] MEDS ORDERED: Dextrose 50% Abboject 50 ML SYRINGE SLOW IVP PRN (19:12)
[2021-07-23] MEDS ORDERED: Dextrose 5% in Water 1,000 ML IV PRN (19:12)
[2021-07-23 20:38] LABS: Lactic Acid 1.7 mmol/L (0.5-2.2)
[2021-07-23 20:53] VITALS: BMI 35.2
[2021-07-23] MEDS: Sodium Chloride 0.9% 1,000 ML IV SCH (22:02)
[2021-07-24] MEDS: VANCOMYCIN 1.75 GM/350 ML BAG 1.75 GM in Premix Bag 1 BAG IVPB SCH ×3 (00:20→23:06)
[2021-07-24 01:21] LABS: SARS-CoV-2 PCR by NAA Not Detected (NotDetected)
[2021-07-24] MEDS: Sodium Chloride 0.9% 1,000 ML IV SCH ×3 (05:15→22:19)
[2021-07-24 10:19] LABS: #Eosinphils 0.1 thou/uL (0.0-0.7); #Lymphocytes 0.6 thou/uL (1.20-3.40); #Monocytes 0.4 thou/uL (0.11-0.59); #Neutrophils 11.5 thou/uL (1.40-6.50); %Eosinophils 0.5 % (0.0-10.0); %Lymphocytes 4.7 % (21.0-51.0); %Monocytes 3.1 % (0.0-10.0); %Neutrophils 91.7 % (42.0-75.0); Hemoglobin 8.1 g/dL (14.0-18.0); Mean Corpuscular HGB CONC 32.7 g/dL (32.0-36.0); Mean Corpuscular Hemoglobin 30.3 pg (27.0-31.0); Mean Corpuscular Volume 92.7 fL (78.0-98.0); Mean Platelet Volume 6.7 fL (7.4-10.4); Platelet Count 74 thou/uL (130-400); RBC Distribution Width 13.6 % (11.5-14.5); Red Blood Cell (RBC) Count 2.68 mill/uL (4.70-6.10); White Blood Cell (WBC) Count 12.6 thou/uL (4.8-10.8)
[2021-07-24 10:20] LABS: Anion Gap 12 mmol/L (10-20); BUN (Urea Nitrogen) 49 mg/dL (8.4-25.7); Calc. Creatinine Clearance 121 mL/min (70-130); Calcium 8.8 mg/dL (7.8-10.44); Carbon Dioxide 16 mmol/L (23-31); Chloride 109 mmol/L (98-107); Glucose 155 mg/dL (83-110); Potassium 5.4 mmol/L (3.5-5.1); Sodium 132 mmol/L (136-145)
[2021-07-24] MEDS: cefTRIAXone\\ROCEPHIN 1 GM in Sodium Chloride 0.9% 100 ML IVPB SCH (17:06)
[2021-07-24] MEDS: Acetaminophen 325 MG TAB PO PRN (22:41)
[2021-07-25] MEDS: Sodium Chloride 0.9% 1,000 ML IV SCH ×3 (01:09→20:43)
[2021-07-25 12:15] LABS: #Eosinphils 0.1 thou/uL (0.0-0.7); #Lymphocytes 0.6 thou/uL (1.20-3.40); #Monocytes 0.4 thou/uL (0.11-0.59); #Neutrophils 8.5 thou/uL (1.40-6.50); %Basophils 0.1 % (0.0-1.0); %Eosinophils 0.5 % (0.0-10.0); %Lymphocytes 6.7 % (21.0-51.0); %Monocytes 4.1 % (0.0-10.0); %Neutrophils 88.6 % (42.0-75.0); Hemoglobin 8.7 g/dL (14.0-18.0); Mean Corpuscular HGB CONC 33.2 g/dL (32.0-36.0); Mean Corpuscular Hemoglobin 30.6 pg (27.0-31.0); Mean Corpuscular Volume 92.1 fL (78.0-98.0); Mean Platelet Volume 6.2 fL (7.4-10.4); Platelet Count 84 thou/uL (130-400); RBC Distribution Width 13.4 % (11.5-14.5); Red Blood Cell (RBC) Count 2.86 mill/uL (4.70-6.10); White Blood Cell (WBC) Count 9.6 thou/uL (4.8-10.8)
[2021-07-25 12:27] LABS: Anion Gap 14 mmol/L (10-20); BUN (Urea Nitrogen) 44 mg/dL (8.4-25.7); Calc. Creatinine Clearance 123 mL/min (70-130); Calcium 8.4 mg/dL (7.8-10.44); Carbon Dioxide 17 mmol/L (23-31); Chloride 108 mmol/L (98-107); Glucose 83 mg/dL (83-110); Sodium 135 mmol/L (136-145)
[2021-07-25 12:41] LABS: Vancomycin, Trough 41.7 ug/mL
[2021-07-25] MEDS: cefTRIAXone\\ROCEPHIN 1 GM in Sodium Chloride 0.9% 100 ML IVPB SCH (15:02)
[2021-07-25] MEDS: VANCOMYCIN 1.75 GM/350 ML BAG 1.75 GM in Premix Bag 1 BAG IVPB SCH (19:38)
[2021-07-25] MEDS: Acetaminophen 325 MG TAB PO PRN (20:47)
[2021-07-26] MEDS: Sodium Chloride 0.9% 1,000 ML IV SCH ×3 (05:06→16:17)
[2021-07-26 07:46] LABS: Anion Gap 11 mmol/L (10-20); BUN (Urea Nitrogen) 40 mg/dL (8.4-25.7); Calc. Creatinine Clearance 111 mL/min (70-130); Carbon Dioxide 18 mmol/L (23-31); Chloride 110 mmol/L (98-107); Glucose 98 mg/dL (83-110); Potassium 3.7 mmol/L (3.5-5.1); Sodium 135 mmol/L (136-145)
[2021-07-26 07:48] LABS: #Eosinphils 0.1 thou/uL (0.0-0.7); #Lymphocytes 0.8 thou/uL (1.20-3.40); #Monocytes 0.6 thou/uL (0.11-0.59); #Neutrophils 8.1 thou/uL (1.40-6.50); %Basophils 0.1 % (0.0-1.0); %Eosinophils 0.7 % (0.0-10.0); %Lymphocytes 8.1 % (21.0-51.0); %Monocytes 6.2 % (0.0-10.0); Hemoglobin 8.9 g/dL (14.0-18.0); Mean Corpuscular Hemoglobin 29.9 pg (27.0-31.0); Mean Corpuscular Volume 90.8 fL (78.0-98.0); Mean Platelet Volume 5.8 fL (7.4-10.4); Platelet Count 86 thou/uL (130-400); RBC Distribution Width 13.5 % (11.5-14.5); Red Blood Cell (RBC) Count 2.98 mill/uL (4.70-6.10); White Blood Cell (WBC) Count 9.5 thou/uL (4.8-10.8)
[2021-07-26] MEDS: cefTRIAXone\\ROCEPHIN 1 GM in Sodium Chloride 0.9% 100 ML IVPB SCH (16:16)
[2021-07-26] MEDS: traZODone HCl 50 MG TAB PO SCH (20:38)
[2021-07-26] MEDS: Senokot 8.6 MG TAB PO SCH (20:39)
[2021-07-27] MEDS: Acetaminophen 325 MG TAB PO PRN ×2 (04:05→20:26)
[2021-07-27] MEDS ORDERED: Nystatin Powder 15 GM BOT TOP PRN (06:54)
[2021-07-27 07:57] LABS: #Eosinphils 0.1 thou/uL (0.0-0.7); #Lymphocytes 0.8 thou/uL (1.20-3.40); #Monocytes 0.6 thou/uL (0.11-0.59); #Neutrophils 7.2 thou/uL (1.40-6.50); %Eosinophils 1.1 % (0.0-10.0); %Lymphocytes 9.3 % (21.0-51.0); %Monocytes 6.5 % (0.0-10.0); %Neutrophils 83.1 % (42.0-75.0); Hemoglobin 7.9 g/dL (14.0-18.0); Mean Corpuscular Hemoglobin 30.7 pg (27.0-31.0); Mean Corpuscular Volume 90.3 fL (78.0-98.0); Mean Platelet Volume 6.3 fL (7.4-10.4); Platelet Count 94 thou/uL (130-400); RBC Distribution Width 13.7 % (11.5-14.5); Red Blood Cell (RBC) Count 2.58 mill/uL (4.70-6.10); White Blood Cell (WBC) Count 8.7 thou/uL (4.8-10.8)
[2021-07-27 08:07] LABS: Anion Gap 9 mmol/L (10-20); BUN (Urea Nitrogen) 35 mg/dL (8.4-25.7); Calc. Creatinine Clearance 111 mL/min (70-130); Calcium 7.8 mg/dL (7.8-10.44); Carbon Dioxide 18 mmol/L (23-31); Chloride 112 mmol/L (98-107); Glucose 110 mg/dL (83-110); Potassium 3.3 mmol/L (3.5-5.1); Sodium 136 mmol/L (136-145)
[2021-07-27] MEDS: Senokot 8.6 MG TAB PO SCH ×2 (08:48→20:27)
[2021-07-27] MEDS: Sodium Chloride 0.9% 1,000 ML IV SCH (12:15)
[2021-07-27] MEDS: cefTRIAXone\\ROCEPHIN 1 GM in Sodium Chloride 0.9% 100 ML IVPB SCH (16:15)
[2021-07-27] MEDS ORDERED: Furosemide 40 MG/4 ML VIAL SLOW IVP SCH (17:15)
[2021-07-27] MEDS: traZODone HCl 50 MG TAB PO SCH (20:27)
[2021-07-28] MEDS ORDERED: Calcium Carbonate 500 MG ChewTAB PO SCH (02:30)
[2021-07-28] MEDS: Furosemide 40 MG/4 ML VIAL SLOW IVP SCH ×2 (05:01→13:21)
[2021-07-28 06:21] LABS: #Eosinphils 0.2 thou/uL (0.0-0.7); #Lymphocytes 0.9 thou/uL (1.20-3.40); #Monocytes 0.6 thou/uL (0.11-0.59); #Neutrophils 7.3 thou/uL (1.40-6.50); %Basophils 0.1 % (0.0-1.0); %Eosinophils 2.2 % (0.0-10.0); %Lymphocytes 10.1 % (21.0-51.0); %Monocytes 6.9 % (0.0-10.0); %Neutrophils 80.7 % (42.0-75.0); Hemoglobin 8.4 g/dL (14.0-18.0); Mean Corpuscular HGB CONC 33.3 g/dL (32.0-36.0); Mean Corpuscular Hemoglobin 29.9 pg (27.0-31.0); Mean Corpuscular Volume 89.9 fL (78.0-98.0); Mean Platelet Volume 6.4 fL (7.4-10.4); Platelet Count 115 thou/uL (130-400); RBC Distribution Width 13.5 % (11.5-14.5); Red Blood Cell (RBC) Count 2.82 mill/uL (4.70-6.10)
[2021-07-28 06:26] LABS: Anion Gap 13 mmol/L (10-20); BUN (Urea Nitrogen) 32 mg/dL (8.4-25.7); Calc. Creatinine Clearance 101 mL/min (70-130); Calcium 7.9 mg/dL (7.8-10.44); Carbon Dioxide 18 mmol/L (23-31); Chloride 111 mmol/L (98-107); Glucose 99 mg/dL (83-110); Potassium 3.4 mmol/L (3.5-5.1); Sodium 139 mmol/L (136-145)
[2021-07-28] MEDS: Senokot 8.6 MG TAB PO SCH ×2 (08:36→20:35)
[2021-07-28] MEDS: Acetaminophen 325 MG TAB PO PRN ×2 (16:10→23:43)
[2021-07-28] MEDS: cefTRIAXone\\ROCEPHIN 1 GM in Sodium Chloride 0.9% 100 ML IVPB SCH (17:09)
[2021-07-28] MEDS: traZODone HCl 50 MG TAB PO SCH (20:36)
[2021-07-29] MEDS: Furosemide 40 MG/4 ML VIAL SLOW IVP SCH ×2 (05:18→13:56)
[2021-07-29 06:42] LABS: #Eosinphils 0.3 thou/uL (0.0-0.7); #Lymphocytes 0.8 thou/uL (1.20-3.40); #Monocytes 0.6 thou/uL (0.11-0.59); #Neutrophils 6.4 thou/uL (1.40-6.50); %Basophils 0.3 % (0.0-1.0); %Eosinophils 3.5 % (0.0-10.0); %Lymphocytes 9.9 % (21.0-51.0); %Monocytes 6.9 % (0.0-10.0); %Neutrophils 79.5 % (42.0-75.0); Hemoglobin 8.5 g/dL (14.0-18.0); Mean Corpuscular HGB CONC 34.1 g/dL (32.0-36.0); Mean Corpuscular Hemoglobin 30.7 pg (27.0-31.0); Mean Corpuscular Volume 89.9 fL (78.0-98.0); Mean Platelet Volume 6.1 fL (7.4-10.4); Platelet Count 146 thou/uL (130-400); RBC Distribution Width 13.5 % (11.5-14.5); Red Blood Cell (RBC) Count 2.76 mill/uL (4.70-6.10)
[2021-07-29 07:06] LABS: Anion Gap 12 mmol/L (10-20); BUN (Urea Nitrogen) 29 mg/dL (8.4-25.7); Calc. Creatinine Clearance 96 mL/min (70-130); Carbon Dioxide 21 mmol/L (23-31); Chloride 108 mmol/L (98-107); Glucose 112 mg/dL (83-110); Potassium 3.2 mmol/L (3.5-5.1); Sodium 138 mmol/L (136-145)
[2021-07-29] MEDS: Senokot 8.6 MG TAB PO SCH (09:47)
[2021-07-29] MEDS ORDERED: Mineral Oil ENEMA PR SCH (10:45)
[2021-07-29] MEDS ORDERED: Potassium Chloride 20 MEQ TAB PO SCH (13:30)
[2021-07-29 14:22] VITALS: BP 123/74; TEMP 99.2
[2021-07-29] MEDS: cefTRIAXone\\ROCEPHIN 1 GM in Sodium Chloride 0.9% 100 ML IVPB SCH (15:10)
== END 2021-07-29 17:46 | disposition home or self-care (01) | DRG 698 ==
LOC: ERS 15:20 → T4-A 18:02
PROVIDERS: ADMIT Family Medicine; ATTEND Internal Medicine
DX: T83.511A Infection and inflammatory reaction due to indwelling urethral catheter, initial encounter (principal); A41.9 Sepsis, unspecified organism; G61.0 Guillain-Barre syndrome; G82.20 Paraplegia, unspecified; E11.9 Type 2 diabetes mellitus without complications; I10 Essential (primary) hypertension; Z96.659 Presence of unspecified artificial knee joint; I25.10 Atherosclerotic heart disease of native coronary artery without angina pectoris; Z20.822 Contact with and (suspected) exposure to COVID-19; N31.9 Neuromuscular dysfunction of bladder, unspecified; E78.5 Hyperlipidemia, unspecified; Y84.6 Urinary catheterization as the cause of abnormal reaction of the patient, or of later complication, without mention of misadventure at the time of the procedure; Z88.2 Allergy status to sulfonamides; Z88.1 Allergy status to other antibiotic agents; Z79.84 Long term (current) use of oral hypoglycemic drugs; Z79.899 Other long term (current) drug therapy; Z95.1 Presence of aortocoronary bypass graft; Z90.49 Acquired absence of other specified parts of digestive tract; Z74.01 Bed confinement status
CPT/HCPCS: 36415; 36416; 51701; 71045; 71275; 80048; 80053; 80202; 81003; 81015; 83605; 83880; 84484; 85025; 87040; 87077; 87086; 87149; 87186; 93005; 93010; 94760; 96365; 96375; J0696; J1720; J1940; J3370; J3490; J7050; Q9967; U0003; U0005

== ENCOUNTER 2021-08-21 02:01 | Inpatient (IN) | payer MEDICARE, BC ==
[2021-08-21 02:58] LABS: Band 6 % (5-11); Hemoglobin 9.9 g/dL (14.0-18.0); Lymphocytes 11 % (21-51); MDiff Complete? YES; Mean Corpuscular Hemoglobin 31.6 pg (27.0-31.0); Mean Corpuscular Volume 92.8 fL (78.0-98.0); Mean Platelet Volume 5.8 fL (7.4-10.4); Monocytes 2 % (0-10); Neutrophil 81 % (42-75); Platelet Count 174 thou/uL (130-400); Red Blood Cell (RBC) Count 3.14 mill/uL (4.70-6.10); White Blood Cell (WBC) Count 20.1 thou/uL (4.8-10.8)
[2021-08-21 03:52] LABS: ALT (SGPT) 45 U/L (8-55); AST (SGOT) 24 U/L (5-34); Albumin 2.7 g/dL (3.4-4.8); Alkaline Phosphatase 75 U/L (40-110); Anion Gap 14 mmol/L (10-20); BUN (Urea Nitrogen) 41 mg/dL (8.4-25.7); Bilirubin, Total 0.7 mg/dL (0.2-1.2); Calc. Creatinine Clearance 0 mL/min (70-130); Calcium 8.3 mg/dL (7.8-10.44); Carbon Dioxide 21 mmol/L (23-31); Chloride 108 mmol/L (98-107); Globulin 2.5 g/dL (2.4-3.5); Glucose 95 mg/dL (83-110); Potassium 4.6 mmol/L (3.5-5.1); Protein, Total 5.2 g/dL (5.8-8.1); Sodium 138 mmol/L (136-145)
[2021-08-21 04:33] LABS: Bacteria/HPF None Seen HPF (None Seen); Bilirubin Negative (Negative); Blood, Urine 3+ (Negative); Clarity Extra Turbid (Clear); Glucose, Urine (Dipstick) Normal (Negative); Ketone, Urine Negative (Negative); Leukocyte 500 Leu/uL (Negative); Nitrite Negative (Negative); Protein, Urine (Dipstick) 200 mg/dL (Neg-Trace); RBC/HPF Greater than 50 HPF (0-3); Specific Gravity, Urine 1.017 (1.002-1.036); Squamous Epithelial 0-3 HPF (0-3); Urobilinogen Normal mg/dL (Less than 2); WBC/HPF Greater than 50 HPF (0-3)
[2021-08-21] MEDS ORDERED: cefTRIAXone\\ROCEPHIN 1 GM VIAL ONE (06:13)
[2021-08-21] MEDS ORDERED: cefTRIAXone\\ROCEPHIN 2 GM VIAL ONE (06:14)
[2021-08-21] MEDS ORDERED: Vancomycin 1 GM/200 ML BAG ONE (06:54)
[2021-08-21] MEDS ORDERED: HumaLOG 300 UNITS/3 ML VIAL SC PRN ×2 (07:45)
[2021-08-21] MEDS ORDERED: Dextrose 5% in Water 1,000 ML IV PRN (07:45)
[2021-08-21] MEDS ORDERED: Sodium Chloride 0.45% 1,000 ML IV SCH (07:45)
[2021-08-21] MEDS ORDERED: Dextrose 50% Abboject 50 ML SYRINGE SLOW IVP PRN (07:45)
[2021-08-21] MEDS ORDERED: Ondansetron ODT 4 MG TAB PO PRN (07:47)
[2021-08-21 08:46] LABS: INR-International Normal Ratio 1.1; Prothrombin Time 14.5 sec (12.0-14.7)
[2021-08-21 08:47] LABS: PTT 30.6 sec (22.9-36.1)
[2021-08-21] MEDS: Vancomycin 1 GM in Premix Bag 1 BAG IVPB SCH ×2 (10:40→22:03)
[2021-08-21] MEDS: Cefepime 2 GM in Sodium Chloride 0.9% 100 ML IVPB SCH ×2 (10:41→20:30)
[2021-08-21 10:51] VITALS: BMI 35.5
[2021-08-21] MEDS ORDERED: Loperamide HCl 2 MG CAP PO SCH (11:30)
[2021-08-21] MEDS ORDERED: Heparin 1,000 UNITS/ML VIAL ONE (12:18)
[2021-08-21 15:53] LABS: Hemoglobin 7.7 g/dL (14.0-18.0)
[2021-08-21 16:19] LABS: SARS-CoV-2 PCR by NAA Not Detected (NotDetected)
[2021-08-21] MEDS: traZODone HCl 50 MG TAB PO SCH (20:30)
[2021-08-22 05:36] LABS: #Eosinphils 0.1 thou/uL (0.0-0.7); #Lymphocytes 1.1 thou/uL (1.20-3.40); #Monocytes 0.6 thou/uL (0.11-0.59); #Neutrophils 7.6 thou/uL (1.40-6.50); %Basophils 0.1 % (0.0-1.0); %Eosinophils 0.8 % (0.0-10.0); %Lymphocytes 11.4 % (21.0-51.0); %Monocytes 6.3 % (0.0-10.0); %Neutrophils 81.5 % (42.0-75.0); Hemoglobin 7.3 g/dL (14.0-18.0); Mean Corpuscular HGB CONC 33.2 g/dL (32.0-36.0); Mean Corpuscular Hemoglobin 30.7 pg (27.0-31.0); Mean Corpuscular Volume 92.4 fL (78.0-98.0); Mean Platelet Volume 5.9 fL (7.4-10.4); Platelet Count 143 thou/uL (130-400); RBC Distribution Width 13.8 % (11.5-14.5); Red Blood Cell (RBC) Count 2.38 mill/uL (4.70-6.10); White Blood Cell (WBC) Count 9.3 thou/uL (4.8-10.8)
[2021-08-22 05:42] LABS: Anion Gap 10 mmol/L (10-20); BUN (Urea Nitrogen) 36 mg/dL (8.4-25.7); Calc. Creatinine Clearance 95 mL/min (70-130); Calcium 7.2 mg/dL (7.8-10.44); Carbon Dioxide 21 mmol/L (23-31); Chloride 106 mmol/L (98-107); Glucose 74 mg/dL (83-110); Potassium 3.4 mmol/L (3.5-5.1); Sodium 134 mmol/L (136-145)
[2021-08-22] MEDS: Cholecalciferol 1,000 UNITS (25 MCG) TAB PO SCH (08:30)
[2021-08-22] MEDS: Calcium Carbonate 600 MG TAB PO SCH (08:30)
[2021-08-22] MEDS: Vancomycin 1 GM in Premix Bag 1 BAG IVPB SCH (08:31)
[2021-08-22] MEDS: Potassium Chloride 20 MEQ TAB PO SCH (08:31)
[2021-08-22] MEDS: Loratadine 10 MG TAB PO SCH (08:31)
[2021-08-22] MEDS: Cefepime 2 GM in Sodium Chloride 0.9% 100 ML IVPB SCH ×2 (08:31→19:56)
[2021-08-22] MEDS: predniSONE 20 MG TAB PO SCH (08:31)
[2021-08-22] MEDS: Tamsulosin HCl 0.4 MG CAP PO SCH (08:31)
[2021-08-22] MEDS ORDERED: Amlodipine 10 MG TAB PO SCH ×2 (09:00)
[2021-08-22] MEDS ORDERED: Loperamide HCl 2 MG CAP PO PRN (10:27)
[2021-08-22] MEDS ORDERED: Potassium Chloride 20 MEQ TAB PO SCH (10:30)
[2021-08-22] MEDS: Acetaminophen 325 MG TAB PO PRN ×2 (14:46→19:58)
[2021-08-22] MEDS: AMPicillin 1 GM in Sodium Chloride 0.9% 100 ML IVPB SCH (17:10)
[2021-08-22] MEDS: Rosuvastatin 20 MG TAB PO SCH (19:57)
[2021-08-22] MEDS: traZODone HCl 50 MG TAB PO SCH (19:58)
[2021-08-23] MEDS: AMPicillin 1 GM in Sodium Chloride 0.9% 100 ML IVPB SCH ×4 (00:13→18:27)
[2021-08-23 06:54] LABS: Anion Gap 7 mmol/L (10-20); BUN (Urea Nitrogen) 36 mg/dL (8.4-25.7); Calc. Creatinine Clearance 93 mL/min (70-130); Calcium 7.4 mg/dL (7.8-10.44); Carbon Dioxide 23 mmol/L (23-31); Chloride 110 mmol/L (98-107); Glucose 122 mg/dL (83-110); Potassium 4.1 mmol/L (3.5-5.1); Sodium 136 mmol/L (136-145)
[2021-08-23 07:02] LABS: #Lymphocytes 0.7 thou/uL (1.20-3.40); #Monocytes 0.5 thou/uL (0.11-0.59); #Neutrophils 6.7 thou/uL (1.40-6.50); %Eosinophils 0.2 % (0.0-10.0); %Lymphocytes 8.5 % (21.0-51.0); %Monocytes 5.9 % (0.0-10.0); %Neutrophils 85.4 % (42.0-75.0); Hemoglobin 6.8 g/dL (14.0-18.0); Mean Corpuscular HGB CONC 33.8 g/dL (32.0-36.0); Mean Corpuscular Hemoglobin 31.3 pg (27.0-31.0); Mean Corpuscular Volume 92.5 fL (78.0-98.0); Mean Platelet Volume 6.1 fL (7.4-10.4); Platelet Count 117 thou/uL (130-400); RBC Distribution Width 13.8 % (11.5-14.5); Red Blood Cell (RBC) Count 2.16 mill/uL (4.70-6.10); White Blood Cell (WBC) Count 7.9 thou/uL (4.8-10.8)
[2021-08-23] MEDS: Potassium Chloride 20 MEQ TAB PO SCH (08:16)
[2021-08-23] MEDS: Cholecalciferol 1,000 UNITS (25 MCG) TAB PO SCH (08:16)
[2021-08-23] MEDS: Calcium Carbonate 600 MG TAB PO SCH (08:16)
[2021-08-23] MEDS: Tamsulosin HCl 0.4 MG CAP PO SCH (08:17)
[2021-08-23] MEDS: Loratadine 10 MG TAB PO SCH (08:17)
[2021-08-23] MEDS: Cefepime 2 GM in Sodium Chloride 0.9% 100 ML IVPB SCH ×2 (08:17→21:15)
[2021-08-23] MEDS: predniSONE 20 MG TAB PO SCH (08:17)
[2021-08-23] MEDS ORDERED: Acetaminophen 325 MG TAB PO SCH (09:00)
[2021-08-23] MEDS: traZODone HCl 50 MG TAB PO SCH (21:18)
[2021-08-23] MEDS: Rosuvastatin 20 MG TAB PO SCH (21:18)
[2021-08-23] MEDS: Acetaminophen 325 MG TAB PO PRN (22:43)
[2021-08-24] MEDS: AMPicillin 1 GM in Sodium Chloride 0.9% 100 ML IVPB SCH ×5 (00:25→23:26)
[2021-08-24 06:46] LABS: Anion Gap 7 mmol/L (10-20); BUN (Urea Nitrogen) 36 mg/dL (8.4-25.7); Calc. Creatinine Clearance 80 mL/min (70-130); Calcium 7.4 mg/dL (7.8-10.44); Carbon Dioxide 23 mmol/L (23-31); Chloride 110 mmol/L (98-107); Glucose 130 mg/dL (83-110); Iron 73 ug/dL (65-175); Iron Binding Capacity, Total 191 mcg/dL (261-462); Potassium 4.4 mmol/L (3.5-5.1); Sodium 136 mmol/L (136-145)
[2021-08-24 06:48] LABS: #Basophils 0.1 thou/uL (0.0-0.2); #Lymphocytes 0.7 thou/uL (1.20-3.40); #Monocytes 0.4 thou/uL (0.11-0.59); #Neutrophils 6.5 thou/uL (1.40-6.50); %Basophils 1.3 % (0.0-1.0); %Eosinophils 0.4 % (0.0-10.0); %Lymphocytes 8.9 % (21.0-51.0); %Monocytes 5.5 % (0.0-10.0); %Neutrophils 83.9 % (42.0-75.0); Hemoglobin 7.3 g/dL (14.0-18.0); Mean Corpuscular HGB CONC 34.2 g/dL (32.0-36.0); Mean Corpuscular Hemoglobin 31.8 pg (27.0-31.0); Mean Corpuscular Volume 92.9 fL (78.0-98.0); Mean Platelet Volume 6.1 fL (7.4-10.4); Platelet Count 103 thou/uL (130-400); RBC Distribution Width 13.4 % (11.5-14.5); Red Blood Cell (RBC) Count 2.28 mill/uL (4.70-6.10); White Blood Cell (WBC) Count 7.8 thou/uL (4.8-10.8)
[2021-08-24 07:12] LABS: Ferritin 254.57 ng/mL (22-322)
[2021-08-24] MEDS: Cholecalciferol 1,000 UNITS (25 MCG) TAB PO SCH (08:57)
[2021-08-24] MEDS: predniSONE 20 MG TAB PO SCH (08:58)
[2021-08-24] MEDS: Calcium Carbonate 600 MG TAB PO SCH (08:58)
[2021-08-24] MEDS: Potassium Chloride 20 MEQ TAB PO SCH (08:58)
[2021-08-24] MEDS: Cefepime 2 GM in Sodium Chloride 0.9% 100 ML IVPB SCH ×2 (08:59→19:46)
[2021-08-24] MEDS: Loratadine 10 MG TAB PO SCH (08:59)
[2021-08-24] MEDS: Tamsulosin HCl 0.4 MG CAP PO SCH (08:59)
[2021-08-24] MEDS ORDERED: Folic Acid 1 MG TAB PO SCH (09:45)
[2021-08-24] MEDS ORDERED: Cyanocobalamin (Vitamin B-12) 1,000 MCG TAB PO SCH (10:30)
[2021-08-24] MEDS ORDERED: Docusate 100 MG CAP PO SCH (10:30)
[2021-08-24] MEDS: Acetaminophen 325 MG TAB PO PRN ×2 (18:12→23:33)
[2021-08-24] MEDS: Docusate 100 MG CAP PO SCH (19:45)
[2021-08-24] MEDS: Rosuvastatin 20 MG TAB PO SCH (19:46)
[2021-08-24] MEDS: traZODone HCl 50 MG TAB PO SCH (19:46)
[2021-08-25] MEDS: AMPicillin 1 GM in Sodium Chloride 0.9% 100 ML IVPB SCH ×4 (05:28→23:12)
[2021-08-25 06:04] LABS: #Lymphocytes 0.7 thou/uL (1.20-3.40); #Monocytes 0.5 thou/uL (0.11-0.59); #Neutrophils 8.1 thou/uL (1.40-6.50); %Basophils 0.1 % (0.0-1.0); %Eosinophils 0.5 % (0.0-10.0); %Lymphocytes 7.9 % (21.0-51.0); %Monocytes 5.1 % (0.0-10.0); %Neutrophils 86.4 % (42.0-75.0); Hemoglobin 7.7 g/dL (14.0-18.0); Mean Corpuscular HGB CONC 34.3 g/dL (32.0-36.0); Mean Corpuscular Hemoglobin 31.8 pg (27.0-31.0); Mean Corpuscular Volume 92.9 fL (78.0-98.0); Platelet Count 110 thou/uL (130-400); RBC Distribution Width 13.3 % (11.5-14.5); Red Blood Cell (RBC) Count 2.43 mill/uL (4.70-6.10); White Blood Cell (WBC) Count 9.3 thou/uL (4.8-10.8)
[2021-08-25 06:13] LABS: Anion Gap 9 mmol/L (10-20); BUN (Urea Nitrogen) 32 mg/dL (8.4-25.7); Calc. Creatinine Clearance 88 mL/min (70-130); Calcium 7.4 mg/dL (7.8-10.44); Carbon Dioxide 20 mmol/L (23-31); Chloride 109 mmol/L (98-107); Glucose 120 mg/dL (83-110); Potassium 4.3 mmol/L (3.5-5.1); Sodium 134 mmol/L (136-145)
[2021-08-25] MEDS: Cholecalciferol 1,000 UNITS (25 MCG) TAB PO SCH (08:01)
[2021-08-25] MEDS: Cefepime 2 GM in Sodium Chloride 0.9% 100 ML IVPB SCH ×2 (08:01→21:37)
[2021-08-25] MEDS: Calcium Carbonate 600 MG TAB PO SCH (08:02)
[2021-08-25] MEDS: Potassium Chloride 20 MEQ TAB PO SCH (08:02)
[2021-08-25] MEDS: Loratadine 10 MG TAB PO SCH (08:03)
[2021-08-25] MEDS: Docusate 100 MG CAP PO SCH ×2 (08:03→21:38)
[2021-08-25] MEDS: predniSONE 20 MG TAB PO SCH (08:03)
[2021-08-25] MEDS: Cyanocobalamin (Vitamin B-12) 1,000 MCG TAB PO SCH (08:03)
[2021-08-25] MEDS: Folic Acid 1 MG TAB PO SCH (08:03)
[2021-08-25] MEDS: Polyethylene Glycol 3350 17 GM Packet PO PRN (08:04)
[2021-08-25] MEDS: Tamsulosin HCl 0.4 MG CAP PO SCH (08:04)
[2021-08-25] MEDS: Rosuvastatin 20 MG TAB PO SCH (21:38)
[2021-08-25] MEDS: traZODone HCl 50 MG TAB PO SCH (21:39)
[2021-08-25] MEDS: Acetaminophen 325 MG TAB PO PRN (23:11)
[2021-08-26] MEDS: AMPicillin 1 GM in Sodium Chloride 0.9% 100 ML IVPB SCH ×4 (05:38→23:56)
[2021-08-26 06:04] LABS: #Eosinphils 0.1 thou/uL (0.0-0.7); #Lymphocytes 0.9 thou/uL (1.20-3.40); #Monocytes 0.6 thou/uL (0.11-0.59); #Neutrophils 8.2 thou/uL (1.40-6.50); %Eosinophils 0.6 % (0.0-10.0); %Lymphocytes 9.2 % (21.0-51.0); %Neutrophils 84.1 % (42.0-75.0); Hemoglobin 7.9 g/dL (14.0-18.0); Mean Corpuscular HGB CONC 34.3 g/dL (32.0-36.0); Mean Corpuscular Hemoglobin 31.7 pg (27.0-31.0); Mean Corpuscular Volume 92.4 fL (78.0-98.0); Platelet Count 114 thou/uL (130-400); RBC Distribution Width 13.6 % (11.5-14.5); White Blood Cell (WBC) Count 9.8 thou/uL (4.8-10.8)
[2021-08-26 06:25] LABS: Anion Gap 9 mmol/L (10-20); BUN (Urea Nitrogen) 29 mg/dL (8.4-25.7); Calc. Creatinine Clearance 83 mL/min (70-130); Calcium 7.3 mg/dL (7.8-10.44); Carbon Dioxide 21 mmol/L (23-31); Chloride 109 mmol/L (98-107); Glucose 103 mg/dL (83-110); Potassium 4.2 mmol/L (3.5-5.1); Sodium 135 mmol/L (136-145)
[2021-08-26] MEDS: Cefepime 2 GM in Sodium Chloride 0.9% 100 ML IVPB SCH ×2 (08:28→20:11)
[2021-08-26] MEDS: Potassium Chloride 20 MEQ TAB PO SCH (08:30)
[2021-08-26] MEDS: Docusate 100 MG CAP PO SCH ×2 (08:30→20:13)
[2021-08-26] MEDS: Ferrous Sulfate 325 MG TAB PO SCH (08:30)
[2021-08-26] MEDS: predniSONE 20 MG TAB PO SCH (08:30)
[2021-08-26] MEDS: Calcium Carbonate 600 MG TAB PO SCH (08:31)
[2021-08-26] MEDS: Cholecalciferol 1,000 UNITS (25 MCG) TAB PO SCH (08:32)
[2021-08-26] MEDS: Multivitamin W/ Minerals 1 TAB PO SCH (08:32)
[2021-08-26] MEDS: Loratadine 10 MG TAB PO SCH (08:32)
[2021-08-26] MEDS: Tamsulosin HCl 0.4 MG CAP PO SCH (08:32)
[2021-08-26] MEDS: Cyanocobalamin (Vitamin B-12) 1,000 MCG TAB PO SCH (08:32)
[2021-08-26] MEDS: Folic Acid 1 MG TAB PO SCH (08:32)
[2021-08-26] MEDS: Polyethylene Glycol 3350 17 GM Packet PO PRN (09:57)
[2021-08-26] MEDS: Rosuvastatin 20 MG TAB PO SCH (20:13)
[2021-08-26] MEDS: traZODone HCl 50 MG TAB PO SCH (20:14)
[2021-08-27] MEDS: AMPicillin 1 GM in Sodium Chloride 0.9% 100 ML IVPB SCH ×3 (05:41→17:17)
[2021-08-27] MEDS: Acetaminophen 325 MG TAB PO PRN (07:06)
[2021-08-27] MEDS: Docusate 100 MG CAP PO SCH ×2 (09:33→20:15)
[2021-08-27] MEDS: Cefepime 2 GM in Sodium Chloride 0.9% 100 ML IVPB SCH ×2 (09:33→20:14)
[2021-08-27] MEDS: Calcium Carbonate 600 MG TAB PO SCH (09:33)
[2021-08-27] MEDS: Potassium Chloride 20 MEQ TAB PO SCH (09:34)
[2021-08-27] MEDS: Cyanocobalamin (Vitamin B-12) 1,000 MCG TAB PO SCH (09:34)
[2021-08-27] MEDS: predniSONE 20 MG TAB PO SCH (09:34)
[2021-08-27] MEDS: Folic Acid 1 MG TAB PO SCH (09:34)
[2021-08-27] MEDS: Cholecalciferol 1,000 UNITS (25 MCG) TAB PO SCH (09:34)
[2021-08-27] MEDS: Multivitamin W/ Minerals 1 TAB PO SCH (09:35)
[2021-08-27] MEDS: Loratadine 10 MG TAB PO SCH (09:35)
[2021-08-27] MEDS: Tamsulosin HCl 0.4 MG CAP PO SCH (09:35)
[2021-08-27] MEDS: Ferrous Sulfate 325 MG TAB PO SCH (09:35)
[2021-08-27] MEDS ORDERED: Bisacodyl 10 MG SUPP PR SCH (12:00)
[2021-08-27] MEDS ORDERED: Polyethylene Glycol 3350 17 GM Packet PO SCH (14:00)
[2021-08-27] MEDS: Rosuvastatin 20 MG TAB PO SCH (20:15)
[2021-08-27] MEDS: traZODone HCl 50 MG TAB PO SCH (20:16)
[2021-08-28] MEDS: AMPicillin 1 GM in Sodium Chloride 0.9% 100 ML IVPB SCH ×3 (00:19→11:21)
[2021-08-28] MEDS: Ferrous Sulfate 325 MG TAB PO SCH (08:51)
[2021-08-28] MEDS: Docusate 100 MG CAP PO SCH ×2 (08:52→20:16)
[2021-08-28] MEDS: Cholecalciferol 1,000 UNITS (25 MCG) TAB PO SCH (08:52)
[2021-08-28] MEDS: Calcium Carbonate 600 MG TAB PO SCH (08:52)
[2021-08-28] MEDS: Loratadine 10 MG TAB PO SCH (08:52)
[2021-08-28] MEDS: Multivitamin W/ Minerals 1 TAB PO SCH (08:52)
[2021-08-28] MEDS: Tamsulosin HCl 0.4 MG CAP PO SCH (08:52)
[2021-08-28] MEDS: Potassium Chloride 20 MEQ TAB PO SCH (08:52)
[2021-08-28] MEDS: predniSONE 20 MG TAB PO SCH (08:52)
[2021-08-28] MEDS: Cyanocobalamin (Vitamin B-12) 1,000 MCG TAB PO SCH (08:53)
[2021-08-28] MEDS: Folic Acid 1 MG TAB PO SCH (08:53)
[2021-08-28] MEDS: Cefepime 2 GM in Sodium Chloride 0.9% 100 ML IVPB SCH (08:53)
[2021-08-28] MEDS: AMOXicillin 250 MG CAP PO SCH (20:10)
[2021-08-28] MEDS: Rosuvastatin 20 MG TAB PO SCH (20:11)
[2021-08-28] MEDS: traZODone HCl 50 MG TAB PO SCH (20:12)
[2021-08-28 20:59] LABS: SARS-CoV-2 PCR by NAA Not Detected (NotDetected)
[2021-08-29] MEDS: Acetaminophen 325 MG TAB PO PRN ×2 (01:07→13:04)
[2021-08-29] MEDS: AMOXicillin 250 MG CAP PO SCH ×2 (04:48→13:01)
[2021-08-29] MEDS: Ferrous Sulfate 325 MG TAB PO SCH (08:29)
[2021-08-29] MEDS: Loratadine 10 MG TAB PO SCH (08:30)
[2021-08-29] MEDS: Cholecalciferol 1,000 UNITS (25 MCG) TAB PO SCH (08:30)
[2021-08-29] MEDS: Docusate 100 MG CAP PO SCH (08:30)
[2021-08-29] MEDS: Multivitamin W/ Minerals 1 TAB PO SCH (08:30)
[2021-08-29] MEDS: predniSONE 20 MG TAB PO SCH (08:30)
[2021-08-29] MEDS: Calcium Carbonate 600 MG TAB PO SCH (08:31)
[2021-08-29] MEDS: Tamsulosin HCl 0.4 MG CAP PO SCH (08:31)
[2021-08-29] MEDS: Cyanocobalamin (Vitamin B-12) 1,000 MCG TAB PO SCH (08:31)
[2021-08-29] MEDS: Folic Acid 1 MG TAB PO SCH (08:31)
[2021-08-29] MEDS: Potassium Chloride 20 MEQ TAB PO SCH (08:31)
[2021-08-29] MEDS ORDERED: Polyethylene Glycol 3350 17 GM Packet PO SCH (09:00)
[2021-08-29 15:12] VITALS: BP 118/65; TEMP 98.3
== END 2021-08-29 18:35 | disposition home or self-care (01) | DRG 698 ==
LOC: ERS 02:01 → SUATTDRO 02:01 → T4-A 05:37
PROVIDERS: ADMIT Student in an Organized Health Care Education/Training Program; ATTEND Internal Medicine
PROC: 02HV33Z Insertion of Infusion Device into Superior Vena Cava, Percutaneous Approach (ICD-10-PCS; principal; 2021-08-22)
PROC: B5181ZA Fluoroscopy of Superior Vena Cava using Low Osmolar Contrast, Guidance (ICD-10-PCS; 2021-08-22)
PROC: B548ZZA Ultrasonography of Superior Vena Cava, Guidance (ICD-10-PCS; 2021-08-22)
PROC: 30233N1 Transfusion of Nonautologous Red Blood Cells into Peripheral Vein, Percutaneous Approach (ICD-10-PCS; 2021-08-23)
DX: T83.511A Infection and inflammatory reaction due to indwelling urethral catheter, initial encounter (principal); A41.52 Sepsis due to Pseudomonas; G82.20 Paraplegia, unspecified; D84.9 Immunodeficiency, unspecified; E87.1 Hypo-osmolality and hyponatremia; G61.0 Guillain-Barre syndrome; E44.0 Moderate protein-calorie malnutrition; Z20.822 Contact with and (suspected) exposure to COVID-19; E11.22 Type 2 diabetes mellitus with diabetic chronic kidney disease; N18.30 Chronic kidney disease, stage 3 unspecified; E78.5 Hyperlipidemia, unspecified; K21.9 Gastro-esophageal reflux disease without esophagitis; I25.10 Atherosclerotic heart disease of native coronary artery without angina pectoris; R19.7 Diarrhea, unspecified; E77.8 Other disorders of glycoprotein metabolism; N31.9 Neuromuscular dysfunction of bladder, unspecified; E11.40 Type 2 diabetes mellitus with diabetic neuropathy, unspecified; R31.0 Gross hematuria; D64.9 Anemia, unspecified; I12.9 Hypertensive chronic kidney disease with stage 1 through stage 4 chronic kidney disease, or unspecified chronic kidney disease; R22.31 Localized swelling, mass and lump, right upper limb; N40.1 Benign prostatic hyperplasia with lower urinary tract symptoms; E87.6 Hypokalemia; Z88.2 Allergy status to sulfonamides; Z79.84 Long term (current) use of oral hypoglycemic drugs; Z79.899 Other long term (current) drug therapy; Z79.82 Long term (current) use of aspirin; Z95.1 Presence of aortocoronary bypass graft; Z90.49 Acquired absence of other specified parts of digestive tract; Z90.89 Acquired absence of other organs; Z74.01 Bed confinement status; Z88.8 Allergy status to other drugs, medicaments and biological substances; Z68.35 Body mass index [BMI] 35.0-35.9, adult
CPT/HCPCS: 36415; 36416; 36430; 36556; 36569; 51702; 71045; 74176; 76770; 76999; 80048; 80053; 81003; 81015; 82274; 82607; 82728; 82746; 83540; 83550; 83605; 85025; 85610; 85730; 86850; 86900; 86901; 87040; 87045; 87046; 87077; 87086; 87149; 87186; 87324; 87328; 87329; 87427; 87449; 93306; 96365; 96367; C1751; J0290; J0692; J0696; J1644; J1815; J3370; J3490; J7512; P9016; U0003; U0005

== ENCOUNTER 2021-09-06 18:49 | Emergency (ER) | payer MEDICARE, BC ==
[2021-09-06 20:18] LABS: #Lymphocytes 0.5 thou/uL (1.20-3.40); #Monocytes 0.4 thou/uL (0.11-0.59); %Eosinophils 0.1 % (0.0-10.0); %Lymphocytes 3.4 % (21.0-51.0); %Monocytes 2.7 % (0.0-10.0); %Neutrophils 93.8 % (42.0-75.0); Hemoglobin 8.6 g/dL (14.0-18.0); Mean Corpuscular HGB CONC 33.9 g/dL (32.0-36.0); Mean Corpuscular Hemoglobin 31.7 pg (27.0-31.0); Mean Corpuscular Volume 93.5 fL (78.0-98.0); Mean Platelet Volume 5.7 fL (7.4-10.4); Platelet Count 154 thou/uL (130-400); RBC Distribution Width 14.6 % (11.5-14.5); Red Blood Cell (RBC) Count 2.73 mill/uL (4.70-6.10); White Blood Cell (WBC) Count 13.9 thou/uL (4.8-10.8)
[2021-09-06 20:42] LABS: ALT (SGPT) 60 U/L (8-55); AST (SGOT) 67 U/L (5-34); Albumin 2.6 g/dL (3.4-4.8); Alkaline Phosphatase 49 U/L (40-110); Anion Gap 8 mmol/L (10-20); BUN (Urea Nitrogen) 41 mg/dL (8.4-25.7); Bilirubin, Total 0.5 mg/dL (0.2-1.2); Calc. Creatinine Clearance 0 mL/min (70-130); Carbon Dioxide 22 mmol/L (23-31); Chloride 112 mmol/L (98-107); Globulin 2.4 g/dL (2.4-3.5); Glucose 157 mg/dL (83-110); Potassium 5.2 mmol/L (3.5-5.1); Sodium 137 mmol/L (136-145)
[2021-09-06] MEDS ORDERED: Furosemide 40 MG/4 ML VIAL ONE (21:11)
== END 2021-09-07 01:04 | disposition home or self-care (01) ==
LOC: ERS 18:49
DX: R60.9 Edema, unspecified (principal); I10 Essential (primary) hypertension; E11.9 Type 2 diabetes mellitus without complications; Z79.899 Other long term (current) drug therapy
CPT/HCPCS: 36415; 71045; 80053; 83880; 84484; 85025; 93005; 96374; J1940

== ENCOUNTER 2021-09-13 15:51 | Inpatient (IN) | payer MEDICARE, BC ==
[2021-09-13 16:56] LABS: #Eosinphils 0.1 thou/uL (0.0-0.7); #Lymphocytes 0.4 thou/uL (1.20-3.40); #Monocytes 0.5 thou/uL (0.11-0.59); #Neutrophils 16.2 thou/uL (1.40-6.50); %Eosinophils 0.5 % (0.0-10.0); %Lymphocytes 2.5 % (21.0-51.0); %Monocytes 2.7 % (0.0-10.0); %Neutrophils 94.3 % (42.0-75.0); Hemoglobin 9.3 g/dL (14.0-18.0); Mean Corpuscular HGB CONC 33.8 g/dL (32.0-36.0); Mean Corpuscular Hemoglobin 31.8 pg (27.0-31.0); Mean Corpuscular Volume 93.9 fL (78.0-98.0); Mean Platelet Volume 6.2 fL (7.4-10.4); Platelet Count 182 thou/uL (130-400); Red Blood Cell (RBC) Count 2.91 mill/uL (4.70-6.10); White Blood Cell (WBC) Count 17.2 thou/uL (4.8-10.8)
[2021-09-13 17:27] LABS: ALT (SGPT) 64 U/L (8-55); AST (SGOT) 44 U/L (5-34); Albumin 2.6 g/dL (3.4-4.8); Alkaline Phosphatase 52 U/L (40-110); Anion Gap 14 mmol/L (10-20); BUN (Urea Nitrogen) 60 mg/dL (8.4-25.7); Bilirubin, Total 0.5 mg/dL (0.2-1.2); Calc. Creatinine Clearance 0 mL/min (70-130); Calcium 8.1 mg/dL (7.8-10.44); Carbon Dioxide 26 mmol/L (23-31); Chloride 99 mmol/L (98-107); Globulin 2.3 g/dL (2.4-3.5); Glucose 180 mg/dL (83-110); Lipase 23 U/L (8-78); Potassium 4.7 mmol/L (3.5-5.1); Protein, Total 4.9 g/dL (5.8-8.1); Sodium 134 mmol/L (136-145)
[2021-09-13] MEDS ORDERED: metroNIDAZOLE 250 MG TAB ONE (20:25)
[2021-09-13] MEDS ORDERED: Vancomycin 25 MG/ML Oral SOLN PO SCH (20:30)
[2021-09-13 21:07] LABS: Bacteria/HPF 4+ HPF (None Seen); Bilirubin Negative (Negative); Blood, Urine 3+ (Negative); Clarity Turbid (Clear); Glucose, Urine (Dipstick) 50 mg/dL (Negative); Ketone, Urine Negative (Negative); Leukocyte 500 Leu/uL (Negative); Nitrite Negative (Negative); Protein, Urine (Dipstick) 30 mg/dL (Neg-Trace); RBC/HPF Greater than 50 HPF (0-3); Specific Gravity, Urine 1.012 (1.002-1.036); Squamous Epithelial 0-3 HPF (0-3); Urobilinogen Normal mg/dL (Less than 2); pH, Urine 6.5 (5.0-9.0)
[2021-09-13] MEDS ORDERED: Acetaminophen 325 MG TAB PO PRN ×2 (21:45→23:55)
[2021-09-13] MEDS ORDERED: Ondansetron PF 4 MG/2 ML Vial IVP PRN (21:45)
[2021-09-13] MEDS ORDERED: Ondansetron ODT 4 MG TAB SL PRN (21:45)
[2021-09-13 22:45] VITALS: BMI 29.2
[2021-09-13] MEDS ORDERED: Loperamide HCl 2 MG CAP PO PRN (23:57)
[2021-09-13] MEDS ORDERED: Insulin Regular 300 UNITS/3 ML VIAL SC PRN (23:57)
[2021-09-13] MEDS ORDERED: Dextrose 5% in Water 1,000 ML IV PRN (23:57)
[2021-09-13] MEDS ORDERED: Dextrose 50% Abboject 50 ML SYRINGE SLOW IVP PRN (23:57)
[2021-09-13] MEDS: Vancomycin 25 MG/ML Oral SOLN PO SCH (23:59)
[2021-09-14] MEDS: Vancomycin 25 MG/ML Oral SOLN PO SCH ×4 (04:48→20:58)
[2021-09-14 07:56] LABS: Mean Corpuscular HGB CONC 33.4 g/dL (32.0-36.0); Mean Corpuscular Hemoglobin 31.4 pg (27.0-31.0); Mean Platelet Volume 5.9 fL (7.4-10.4); Platelet Count 179 thou/uL (130-400); Red Blood Cell (RBC) Count 2.85 mill/uL (4.70-6.10); White Blood Cell (WBC) Count 13.3 thou/uL (4.8-10.8)
[2021-09-14 08:15] LABS: ALT (SGPT) 56 U/L (8-55); AST (SGOT) 26 U/L (5-34); Albumin 2.6 g/dL (3.4-4.8); Alkaline Phosphatase 47 U/L (40-110); Anion Gap 13 mmol/L (10-20); BUN (Urea Nitrogen) 54 mg/dL (8.4-25.7); Bilirubin, Total 0.6 mg/dL (0.2-1.2); Calc. Creatinine Clearance 89 mL/min (70-130); Carbon Dioxide 24 mmol/L (23-31); Chloride 102 mmol/L (98-107); Globulin 2.1 g/dL (2.4-3.5); Glucose 102 mg/dL (83-110); Potassium 3.7 mmol/L (3.5-5.1); Protein, Total 4.7 g/dL (5.8-8.1); Sodium 135 mmol/L (136-145)
[2021-09-14] MEDS: Senokot 8.6 MG TAB PO SCH (08:46)
[2021-09-14] MEDS: Cholecalciferol 1,000 UNITS (25 MCG) TAB PO SCH (08:46)
[2021-09-14] MEDS: Docusate 100 MG CAP PO SCH ×2 (08:47→20:58)
[2021-09-14] MEDS: Potassium Chloride 20 MEQ TAB PO SCH (08:47)
[2021-09-14] MEDS: Cyanocobalamin (Vitamin B-12) 1,000 MCG TAB PO SCH (08:47)
[2021-09-14] MEDS: Tamsulosin HCl 0.4 MG CAP PO SCH (08:47)
[2021-09-14] MEDS: Loratadine 10 MG TAB PO SCH (08:47)
[2021-09-14] MEDS: Folic Acid 1 MG TAB PO SCH (08:47)
[2021-09-14] MEDS: Rosuvastatin 20 MG TAB PO SCH (08:47)
[2021-09-14] MEDS: Aspirin 325 MG TAB PO SCH (08:48)
[2021-09-14] MEDS: Ferrous Sulfate 325 MG TAB PO SCH (08:48)
[2021-09-14] MEDS: Calcium Carbonate 600 MG TAB PO SCH (08:48)
[2021-09-14] MEDS: predniSONE 20 MG TAB PO SCH (08:48)
[2021-09-14] MEDS: Multivitamin W/ Minerals 1 TAB PO SCH (08:48)
[2021-09-14] MEDS: Enoxaparin Sodium 40 MG/0.4 ML SYRINGE SC SCH (08:49)
[2021-09-14] MEDS: metFORMIN XR 500 MG TAB PO SCH ×2 (08:49→20:57)
[2021-09-14] MEDS ORDERED: Amlodipine 10 MG TAB PO SCH (09:00)
[2021-09-14 10:04] LABS: Band 1 % (5-11); Lymphocytes 9 % (21-51); MDiff Complete? YES; Monocytes 2 % (0-10); Neutrophil 88 % (42-75); Platelet Morphology Comment Appears Adequate; Polychromasia SLIGHT = 2-3 cells (100X) (0-2/hpf)
[2021-09-14] MEDS: HumaLOG 300 UNITS/3 ML VIAL SC PRN ×2 (11:33→16:44)
[2021-09-14] MEDS: metroNIDAZOLE 250 MG TAB PO SCH ×2 (14:43→20:57)
[2021-09-14] MEDS: HYDROcodone/Acetaminophen 5/325 mg Tablet PO PRN (17:54)
[2021-09-14] MEDS: traZODone HCl 50 MG TAB PO SCH (20:57)
[2021-09-14 23:26] LABS: SARS-CoV-2 PCR by NAA Not Detected (NotDetected)
[2021-09-15] MEDS: Vancomycin 25 MG/ML Oral SOLN PO SCH ×4 (04:04→20:30)
[2021-09-15 07:49] LABS: #Eosinphils 0.1 thou/uL (0.0-0.7); #Lymphocytes 1.2 thou/uL (1.20-3.40); #Monocytes 0.7 thou/uL (0.11-0.59); #Neutrophils 8.6 thou/uL (1.40-6.50); %Basophils 0.1 % (0.0-1.0); %Eosinophils 0.6 % (0.0-10.0); %Lymphocytes 11.7 % (21.0-51.0); %Monocytes 6.5 % (0.0-10.0); %Neutrophils 81.1 % (42.0-75.0); Hemoglobin 8.9 g/dL (14.0-18.0); Mean Corpuscular HGB CONC 32.8 g/dL (32.0-36.0); Mean Corpuscular Hemoglobin 31.1 pg (27.0-31.0); Mean Corpuscular Volume 94.8 fL (78.0-98.0); Mean Platelet Volume 6.2 fL (7.4-10.4); Platelet Count 172 thou/uL (130-400); RBC Distribution Width 13.7 % (11.5-14.5); Red Blood Cell (RBC) Count 2.86 mill/uL (4.70-6.10); White Blood Cell (WBC) Count 10.6 thou/uL (4.8-10.8)
[2021-09-15 08:38] LABS: Anion Gap 14 mmol/L (10-20); BUN (Urea Nitrogen) 45 mg/dL (8.4-25.7); Calc. Creatinine Clearance 93 mL/min (70-130); Calcium 8.1 mg/dL (7.8-10.44); Carbon Dioxide 23 mmol/L (23-31); Chloride 101 mmol/L (98-107); Glucose 89 mg/dL (83-110); Potassium 4.1 mmol/L (3.5-5.1); Sodium 134 mmol/L (136-145)
[2021-09-15] MEDS: Enoxaparin Sodium 40 MG/0.4 ML SYRINGE SC SCH (08:47)
[2021-09-15] MEDS: Loratadine 10 MG TAB PO SCH (08:48)
[2021-09-15] MEDS: predniSONE 20 MG TAB PO SCH (08:48)
[2021-09-15] MEDS: Calcium Carbonate 600 MG TAB PO SCH (08:48)
[2021-09-15] MEDS: Rosuvastatin 20 MG TAB PO SCH (08:48)
[2021-09-15] MEDS: Aspirin 325 MG TAB PO SCH (08:48)
[2021-09-15] MEDS: metFORMIN XR 500 MG TAB PO SCH ×2 (08:48→20:31)
[2021-09-15] MEDS: Ferrous Sulfate 325 MG TAB PO SCH (08:48)
[2021-09-15] MEDS: Folic Acid 1 MG TAB PO SCH (08:48)
[2021-09-15] MEDS: metroNIDAZOLE 250 MG TAB PO SCH ×3 (08:48→20:30)
[2021-09-15] MEDS: Cholecalciferol 1,000 UNITS (25 MCG) TAB PO SCH (08:48)
[2021-09-15] MEDS: Tamsulosin HCl 0.4 MG CAP PO SCH (08:49)
[2021-09-15] MEDS: Cyanocobalamin (Vitamin B-12) 1,000 MCG TAB PO SCH (08:49)
[2021-09-15] MEDS: Multivitamin W/ Minerals 1 TAB PO SCH (08:49)
[2021-09-15] MEDS: Potassium Chloride 20 MEQ TAB PO SCH (08:50)
[2021-09-15] MEDS: Docusate 100 MG CAP PO SCH ×2 (09:05→20:31)
[2021-09-15] MEDS: Senokot 8.6 MG TAB PO SCH (09:05)
[2021-09-15] MEDS: HumaLOG 300 UNITS/3 ML VIAL SC PRN (17:13)
[2021-09-15] MEDS: HYDROcodone/Acetaminophen 5/325 mg Tablet PO PRN (19:19)
[2021-09-15] MEDS: traZODone HCl 50 MG TAB PO SCH (20:31)
[2021-09-16] MEDS: Vancomycin 25 MG/ML Oral SOLN PO SCH ×4 (03:48→21:07)
[2021-09-16 07:21] LABS: Anion Gap 11 mmol/L (10-20); Calc. Creatinine Clearance 87 mL/min (70-130); Calcium 7.7 mg/dL (7.8-10.44); Carbon Dioxide 24 mmol/L (23-31); Chloride 101 mmol/L (98-107); Glucose 99 mg/dL (83-110); Potassium 4.3 mmol/L (3.5-5.1); Sodium 132 mmol/L (136-145)
[2021-09-16 08:03] LABS: BUN (Urea Nitrogen) 44 mg/dL (8.4-25.7)
[2021-09-16] MEDS: Cholecalciferol 1,000 UNITS (25 MCG) TAB PO SCH (08:56)
[2021-09-16] MEDS: Docusate 100 MG CAP PO SCH ×2 (08:56→21:04)
[2021-09-16] MEDS: metroNIDAZOLE 250 MG TAB PO SCH ×3 (08:57→21:04)
[2021-09-16] MEDS: Senokot 8.6 MG TAB PO SCH (08:57)
[2021-09-16] MEDS: Folic Acid 1 MG TAB PO SCH (08:58)
[2021-09-16] MEDS: Calcium Carbonate 600 MG TAB PO SCH (08:58)
[2021-09-16] MEDS: Potassium Chloride 20 MEQ TAB PO SCH (08:58)
[2021-09-16] MEDS: Rosuvastatin 20 MG TAB PO SCH (08:58)
[2021-09-16] MEDS: Cyanocobalamin (Vitamin B-12) 1,000 MCG TAB PO SCH (08:58)
[2021-09-16] MEDS: Loratadine 10 MG TAB PO SCH (08:58)
[2021-09-16] MEDS: predniSONE 20 MG TAB PO SCH (08:58)
[2021-09-16] MEDS: Tamsulosin HCl 0.4 MG CAP PO SCH (08:58)
[2021-09-16] MEDS: metFORMIN XR 500 MG TAB PO SCH ×2 (08:58→21:05)
[2021-09-16] MEDS: Ferrous Sulfate 325 MG TAB PO SCH (08:58)
[2021-09-16] MEDS: Aspirin 325 MG TAB PO SCH (08:58)
[2021-09-16] MEDS: Multivitamin W/ Minerals 1 TAB PO SCH (08:58)
[2021-09-16] MEDS: Enoxaparin Sodium 40 MG/0.4 ML SYRINGE SC SCH (08:59)
[2021-09-16] MEDS ORDERED: Bisacodyl 10 MG SUPP PR SCH (09:15)
[2021-09-16] MEDS: HumaLOG 300 UNITS/3 ML VIAL SC PRN ×2 (17:02→21:18)
[2021-09-16] MEDS: traZODone HCl 50 MG TAB PO SCH (21:05)
[2021-09-17] MEDS: Vancomycin 25 MG/ML Oral SOLN PO SCH ×4 (03:02→21:39)
[2021-09-17 06:55] LABS: Anion Gap 12 mmol/L (10-20); BUN (Urea Nitrogen) 38 mg/dL (8.4-25.7); Calc. Creatinine Clearance 91 mL/min (70-130); Carbon Dioxide 24 mmol/L (23-31); Chloride 103 mmol/L (98-107); Glucose 110 mg/dL (83-110); Potassium 4.4 mmol/L (3.5-5.1); Sodium 135 mmol/L (136-145)
[2021-09-17] MEDS: Cholecalciferol 1,000 UNITS (25 MCG) TAB PO SCH (08:59)
[2021-09-17] MEDS: Cyanocobalamin (Vitamin B-12) 1,000 MCG TAB PO SCH (09:01)
[2021-09-17] MEDS: Calcium Carbonate 600 MG TAB PO SCH (09:01)
[2021-09-17] MEDS: Senokot 8.6 MG TAB PO SCH (09:01)
[2021-09-17] MEDS: metFORMIN XR 500 MG TAB PO SCH ×2 (09:02→21:39)
[2021-09-17] MEDS: predniSONE 20 MG TAB PO SCH (09:02)
[2021-09-17] MEDS: Rosuvastatin 20 MG TAB PO SCH (09:02)
[2021-09-17] MEDS: metroNIDAZOLE 250 MG TAB PO SCH ×3 (09:02→21:39)
[2021-09-17] MEDS: Ferrous Sulfate 325 MG TAB PO SCH (09:03)
[2021-09-17] MEDS: Multivitamin W/ Minerals 1 TAB PO SCH (09:03)
[2021-09-17] MEDS: Tamsulosin HCl 0.4 MG CAP PO SCH (09:03)
[2021-09-17] MEDS: Loratadine 10 MG TAB PO SCH (09:03)
[2021-09-17] MEDS: Docusate 100 MG CAP PO SCH ×2 (09:03→21:39)
[2021-09-17] MEDS: Folic Acid 1 MG TAB PO SCH (09:03)
[2021-09-17] MEDS: Aspirin 325 MG TAB PO SCH (09:03)
[2021-09-17] MEDS: Potassium Chloride 20 MEQ TAB PO SCH (09:03)
[2021-09-17] MEDS: Enoxaparin Sodium 40 MG/0.4 ML SYRINGE SC SCH (09:04)
[2021-09-17] MEDS: HumaLOG 300 UNITS/3 ML VIAL SC PRN (17:49)
[2021-09-17] MEDS: traZODone HCl 50 MG TAB PO SCH (21:40)
[2021-09-18] MEDS: Vancomycin 25 MG/ML Oral SOLN PO SCH ×2 (03:29→08:58)
[2021-09-18 07:12] LABS: Anion Gap 10 mmol/L (10-20); BUN (Urea Nitrogen) 33 mg/dL (8.4-25.7); Calc. Creatinine Clearance 104 mL/min (70-130); Calcium 7.9 mg/dL (7.8-10.44); Carbon Dioxide 26 mmol/L (23-31); Chloride 104 mmol/L (98-107); Glucose 103 mg/dL (83-110); Potassium 4.6 mmol/L (3.5-5.1); Sodium 135 mmol/L (136-145)
[2021-09-18] MEDS: Folic Acid 1 MG TAB PO SCH (08:56)
[2021-09-18] MEDS: Loratadine 10 MG TAB PO SCH (08:56)
[2021-09-18] MEDS: Cyanocobalamin (Vitamin B-12) 1,000 MCG TAB PO SCH (08:56)
[2021-09-18] MEDS: Calcium Carbonate 600 MG TAB PO SCH (08:56)
[2021-09-18] MEDS: Docusate 100 MG CAP PO SCH (08:56)
[2021-09-18] MEDS: Rosuvastatin 20 MG TAB PO SCH (08:56)
[2021-09-18] MEDS: Multivitamin W/ Minerals 1 TAB PO SCH (08:57)
[2021-09-18] MEDS: predniSONE 20 MG TAB PO SCH (08:57)
[2021-09-18] MEDS: Ferrous Sulfate 325 MG TAB PO SCH (08:57)
[2021-09-18] MEDS: Senokot 8.6 MG TAB PO SCH (08:57)
[2021-09-18] MEDS: Aspirin 325 MG TAB PO SCH (08:57)
[2021-09-18] MEDS: Potassium Chloride 20 MEQ TAB PO SCH (08:57)
[2021-09-18] MEDS: metroNIDAZOLE 250 MG TAB PO SCH (08:58)
[2021-09-18] MEDS: Cholecalciferol 1,000 UNITS (25 MCG) TAB PO SCH (08:58)
[2021-09-18] MEDS: metFORMIN XR 500 MG TAB PO SCH (08:58)
[2021-09-18] MEDS: Enoxaparin Sodium 40 MG/0.4 ML SYRINGE SC SCH (08:58)
[2021-09-18] MEDS: Tamsulosin HCl 0.4 MG CAP PO SCH (08:58)
[2021-09-18 09:23] VITALS: BP 134/77; TEMP 97.8
== END 2021-09-18 12:44 | disposition home or self-care (01) | DRG 872 ==
LOC: ERS 15:51 → T4-A 20:19 → OBSVTOIN 09-14 10:05
PROVIDERS: ADMIT Internal Medicine; ATTEND Internal Medicine
DX: A41.4 Sepsis due to anaerobes (principal); Z20.822 Contact with and (suspected) exposure to COVID-19; A04.72 Enterocolitis due to Clostridium difficile, not specified as recurrent; G82.20 Paraplegia, unspecified; I25.810 Atherosclerosis of coronary artery bypass graft(s) without angina pectoris; J90 Pleural effusion, not elsewhere classified; E44.0 Moderate protein-calorie malnutrition; G65.0 Sequelae of Guillain-Barre syndrome; E11.9 Type 2 diabetes mellitus without complications; I25.10 Atherosclerotic heart disease of native coronary artery without angina pectoris; D64.9 Anemia, unspecified; E87.70 Fluid overload, unspecified; R31.9 Hematuria, unspecified; E78.2 Mixed hyperlipidemia; E78.5 Hyperlipidemia, unspecified; N40.0 Benign prostatic hyperplasia without lower urinary tract symptoms; N31.9 Neuromuscular dysfunction of bladder, unspecified; R82.71 Bacteriuria; K57.30 Diverticulosis of large intestine without perforation or abscess without bleeding; N20.0 Calculus of kidney; Z88.1 Allergy status to other antibiotic agents; Z88.2 Allergy status to sulfonamides; Z79.899 Other long term (current) drug therapy; Z79.84 Long term (current) use of oral hypoglycemic drugs; Z79.52 Long term (current) use of systemic steroids; Z79.82 Long term (current) use of aspirin; Z90.49 Acquired absence of other specified parts of digestive tract; Z95.1 Presence of aortocoronary bypass graft; Z68.29 Body mass index [BMI] 29.0-29.9, adult; Z87.440 Personal history of urinary (tract) infections
CPT/HCPCS: 36415; 36416; 74177; 80048; 80053; 81003; 81015; 83690; 85007; 85025; 85027; 87081; 87324; 87449; 87493; 93005; 96372; 96374; 96376; G0378; J1650; J1815; J7512; U0003; U0005

== ENCOUNTER 2021-09-21 20:02 | Observation (INO) | payer MEDICARE, BC ==
[2021-09-21 21:42] LABS: #Eosinphils 0.1 thou/uL (0.0-0.7); #Lymphocytes 0.7 thou/uL (1.20-3.40); #Monocytes 0.5 thou/uL (0.11-0.59); %Basophils 0.1 % (0.0-1.0); %Eosinophils 0.4 % (0.0-10.0); %Lymphocytes 4.3 % (21.0-51.0); %Neutrophils 92.2 % (42.0-75.0); Hemoglobin 9.9 g/dL (14.0-18.0); Mean Corpuscular HGB CONC 34.4 g/dL (32.0-36.0); Mean Corpuscular Hemoglobin 32.5 pg (27.0-31.0); Mean Corpuscular Volume 94.5 fL (78.0-98.0); Mean Platelet Volume 6.1 fL (7.4-10.4); Platelet Count 219 thou/uL (130-400); RBC Distribution Width 14.1 % (11.5-14.5); Red Blood Cell (RBC) Count 3.04 mill/uL (4.70-6.10); White Blood Cell (WBC) Count 15.2 thou/uL (4.8-10.8)
[2021-09-21 21:48] LABS: ALT (SGPT) 180 U/L (8-55); AST (SGOT) 125 U/L (5-34); Alkaline Phosphatase 66 U/L (40-110); Anion Gap 14 mmol/L (10-20); BUN (Urea Nitrogen) 31 mg/dL (8.4-25.7); Bilirubin, Total 0.6 mg/dL (0.2-1.2); CK (CPK) 22 U/L (30-200); Calc. Creatinine Clearance 0 mL/min (70-130); Carbon Dioxide 27 mmol/L (23-31); Chloride 100 mmol/L (98-107); Globulin 2.5 g/dL (2.4-3.5); Glucose 141 mg/dL (83-110); Magnesium 1.8 mg/dL (1.6-2.6); Potassium 4.9 mmol/L (3.5-5.1); Protein, Total 5.5 g/dL (5.8-8.1); Sodium 136 mmol/L (136-145)
[2021-09-22] MEDS ORDERED: Acetaminophen 325 MG TAB PO PRN (00:56)
[2021-09-22] MEDS ORDERED: HYDROcodone/Acetaminophen 5/325 mg Tablet PO PRN (00:56)
[2021-09-22] MEDS ORDERED: Ondansetron PF 4 MG/2 ML Vial IVP PRN (01:07)
[2021-09-22] MEDS ORDERED: Vancomycin 25 MG/ML Oral SOLN PO SCH (01:15)
[2021-09-22] MEDS ORDERED: LACTINEX 1 TAB PO SCH (02:00)
[2021-09-22 02:39] VITALS: BMI 31.8
[2021-09-22] MEDS: Sodium Chloride 0.9% 1,000 ML IV SCH ×2 (02:51→15:51)
[2021-09-22] MEDS ORDERED: HumaLOG 300 UNITS/3 ML VIAL SC PRN ×2 (04:22)
[2021-09-22] MEDS ORDERED: Dextrose 5% in Water 1,000 ML IV PRN (04:22)
[2021-09-22] MEDS ORDERED: Dextrose 50% Abboject 50 ML SYRINGE SLOW IVP PRN (04:22)
[2021-09-22] MEDS: Vancomycin 25 MG/ML Oral SOLN PO SCH ×2 (05:50→15:51)
[2021-09-22 07:04] LABS: #Basophils 0.1 thou/uL (0.0-0.2); #Lymphocytes 0.9 thou/uL (1.20-3.40); #Monocytes 0.5 thou/uL (0.11-0.59); #Neutrophils 11.9 thou/uL (1.40-6.50); %Basophils 0.4 % (0.0-1.0); %Eosinophils 0.3 % (0.0-10.0); %Lymphocytes 6.4 % (21.0-51.0); %Monocytes 3.6 % (0.0-10.0); %Neutrophils 89.3 % (42.0-75.0); Hemoglobin 8.9 g/dL (14.0-18.0); Mean Corpuscular HGB CONC 32.5 g/dL (32.0-36.0); Mean Corpuscular Hemoglobin 30.9 pg (27.0-31.0); Mean Corpuscular Volume 95.2 fL (78.0-98.0); Mean Platelet Volume 6.4 fL (7.4-10.4); Platelet Count 179 thou/uL (130-400); Red Blood Cell (RBC) Count 2.86 mill/uL (4.70-6.10); White Blood Cell (WBC) Count 13.4 thou/uL (4.8-10.8)
[2021-09-22 07:29] LABS: ALT (SGPT) 145 U/L (8-55); AST (SGOT) 82 U/L (5-34); Albumin 2.6 g/dL (3.4-4.8); Alkaline Phosphatase 54 U/L (40-110); Anion Gap 14 mmol/L (10-20); BUN (Urea Nitrogen) 31 mg/dL (8.4-25.7); Bilirubin, Total 0.5 mg/dL (0.2-1.2); Calc. Creatinine Clearance 105 mL/min (70-130); Calcium 8.2 mg/dL (7.8-10.44); Carbon Dioxide 24 mmol/L (23-31); Chloride 102 mmol/L (98-107); Glucose 129 mg/dL (83-110); Potassium 4.4 mmol/L (3.5-5.1); Protein, Total 4.6 g/dL (5.8-8.1); Sodium 136 mmol/L (136-145)
[2021-09-22] MEDS ORDERED: Famotidine/PF 20 mg/2ml Vial SLOW IVP SCH (09:00)
[2021-09-22 17:15] VITALS: BP 113/65; TEMP 98.2
[2021-09-22 17:32] LABS: SARS-CoV-2 PCR by NAA Not Detected (NotDetected)
== END 2021-09-22 17:44 | disposition home or self-care (01) ==
LOC: ERS 20:02 → INTOOBSV 09-22 00:39 → T4-A 09-22 00:39
PROVIDERS: ADMIT Student in an Organized Health Care Education/Training Program; ATTEND Internal Medicine
DX: A04.72 Enterocolitis due to Clostridium difficile, not specified as recurrent (principal); E11.9 Type 2 diabetes mellitus without complications; I25.2 Old myocardial infarction; I10 Essential (primary) hypertension; G61.0 Guillain-Barre syndrome; G82.20 Paraplegia, unspecified; Z88.2 Allergy status to sulfonamides; Z79.2 Long term (current) use of antibiotics; Z79.52 Long term (current) use of systemic steroids; Z79.82 Long term (current) use of aspirin; Z79.84 Long term (current) use of oral hypoglycemic drugs; Z79.899 Other long term (current) drug therapy; Z95.1 Presence of aortocoronary bypass graft; Z20.822 Contact with and (suspected) exposure to COVID-19
CPT/HCPCS: 80053 ×2; 82550; 82962; 83735; 85025 ×2; 97139 ×2; 97535; U0003; U0005; 36415; 36416; 96374; 99285; G0378; J1815; J7050; S0028